=== PATIENT | female | born 1965 | race Caucasian/White ===

== ENCOUNTER 2023-01-24 08:51 | Emergency (ER) | payer MEDICARE, SELFPAY ==
[2023-01-24 08:52] VITALS: BP 174/84; PULSE 104; RESP 18; TEMP 36.2; O2SAT 98; BMI 21.2
[2023-01-24 09:36] VITALS: BMI 21.2
--- NOTE | 2023-01-24 09:42 | EKG12_ITS ---
Test Reason : BRENDEN Blood Pressure : / mmHG Vent. Rate : 089 BPM Atrial Rate : 089 BPM P-R Int : 140 ms QRS Dur : 100 ms QT Int : 352 ms P-R-T Axes : 029 015 160 degrees QTc Int : 428 ms Normal sinus rhythm Possible Inferior infarct , age undetermined ST & T wave abnormality, consider anterolateral ischemia Abnormal ECG Confirmed by PRIYA PERERA, MAYCOL ([id number]), editorial project manager GERRI MILAN ([id number]) on 01/28/2023 11:03:49 AM Referred By: Confirmed By:MAYCOL POWERS MD
--- NOTE | 2023-01-24 09:44 | CT_ITS ---
STUDY: CTA HEAD AND NECK WITH CONTRAST REASON FOR EXAM: Female, 57 years old. Neuro deficit, acute, stroke suspected RADIATION DOSAGE (If Supplied By Facility): CTDIvol = ( 30.57 ) mGy, DLP = ( 1502.47 ) mGycm TECHNIQUE: CT angiography was performed with a multi-detector CT scanner. Data acquisition was obtained from the skull base through the vertex following intravenous administration of IV 100mL Isovue-370. MIP images were reconstructed from the axial data set. Post-processing of the angiographic images was performed, with multiplanar reformation and 3D reconstruction. Individualized dose optimization techniques were used for this CT. COMPARISON: No relevant priors. FINDINGS: Normal bilateral petrous carotid arteries. There is calcified plaque formation of the right cavernous carotid artery, without a cross-sectional luminal stenosis. There is calcified plaque formation of the left cavernous carotid artery, without a cross-sectional luminal stenosis. Normal right A1 segments of the anterior cerebral artery. Normal left A1 segments of the anterior cerebral artery. Normal intact anterior communicating artery (ACOM). Normal bilateral A2 segments of the anterior cerebral arteries. Normal right M1 and M2 segments of the middle cerebral arteries, with a normal M1 bifurcation. Normal left M1 and M2 segments of the middle cerebral arteries, with a normal M1 bifurcation. Normal right posterior communicating artery (PCOM). Normal left posterior communicating artery (PCOM). Normal bilateral vertebral arteries. Normal basilar artery with a normal basilar bifurcation. The visualized bilateral superior cerebellar (SCA) arteries are normal. Normal bilateral P1, P2 and visualized P3 segments of the posterior cerebral arteries. There is no demonstrated aneurysm of the [place]. Decreased attenuation is seen in the left temporoparietal lobe suggestive of a acute ischemic change. There is a mild degree of the mass effect and edema. AORTIC ARCH: There is atherosclerotic calcific plaque formation of the aortic arch and great vessels arising from the aortic arch, without a hemodynamically significant stenosis. There is a normal origin of the brachiocephalic, left common carotid, and left subclavian arteries. RIGHT CAROTID ARTERIES: Normal right common carotid artery (CCA). Normal right common carotid bulb. Normal origin of the right internal carotid (ICA) artery without a hemodynamically significant stenosis. Normal visualized cervical portion of the right internal carotid artery. Normal origin of the right external carotid artery (ECA). LEFT CAROTID ARTERIES: Normal left common carotid artery (CCA). Normal left common carotid bulb. There is severe soft plaque formation of the origin of the left internal carotid artery with a near complete occlusion. Normal visualized cervical portion of the left internal carotid artery. Normal origin of the left external carotid artery (ECA). VERTEBRAL ARTERIES: Normal bilateral vertebral arteries. CT/STROKE CTA Head AND Neck W/Con IMPRESSION: Almost complete occlusion at the origin of the left internal carotid artery. Evidence of the ischemic change in the left temporal parietal lobes with evidence of edema. N.B. : The above Results were Read Back by Hipolito Rodriguez MD to William Potter and understanding confirmed on 01/24/2023 10:50:38 (ET). Electronically Signed: Hipolito Rodriguez MD at 10:52 EST ,
--- NOTE | 2023-01-24 09:50 | RAD_ITS ---
STUDY: X-RAY CHEST REASON FOR EXAM: Female, 57 years old. Neuro deficit, acute, stroke suspected TECHNIQUE: Single AP portable view of the chest. COMPARISON: None. FINDINGS: EKG electrodes are seen. The lungs are clear and expanded. There is no demonstrated pleural abnormality. Normal size heart. Normal mediastinum and gem. Normal visualized pulmonary arteries. Normal visualized aortic arch and descending thoracic aorta. There are diffuse degenerative changes of the visualized thoracic spine. Normal visualized ribs, clavicles, and shoulders. Effusion is seen in the lower cervical spine. Surgical clips are seen in the right upper quadrant. RAD/Chest 1 View IMPRESSION: No acute abnormality is seen. Electronically Signed: Hipolito Rodriguez MD at 10:16 EST ,
[2023-01-24 09:56] LABS: Absolute Lymphocyte Count 1.38 X10^3/uL (0.83-4.51); Absolute Neutrophil Count 5.9 X10^3/uL (2.0-7.7); Basophil# 0.04 X10^3/uL; Basophil% 0.5 % (0-1); Eosinophil# 0.19 X10^3/uL; Eosinophils% 2.3 % (0-5); Hematocrit 38.5 % (37-47); Hemoglobin 12.7 g/dL (12.0-15.0); Lymphocyte # 1.38 X10^3/ul (0.83-4.51); Lymphocyte % 16.9 % (19-41); Mean Corpuscular Hgb 28.9 pg (27.0-32.0); Mean Corpuscular Volume 87.5 fL (81-99); Mean Platelet Vol. 12.9 fl (6.2-12.0); Monocyte# 0.65 X10^3/uL; NRBC Flagged by Analyzer 0 % (0-5); Neutrophil # 5.87 X10^3/uL (2.7-7.7); Neutrophil % 71.9 % (47-70); Platelet Count 213 K/mm3 (150-450); RBC Distribution Width CV 14.6 % (11.6-14.6); RBC Distribution Width SD 46.4 fl (35.1-43.9); White Blood Count 8.2 K/mm3 (4.4-11.0)
[2023-01-24 10:08] LABS: International Normalized Ratio 1.4; Partial Thromboplast Time 31.2 Seconds (24.1-36.2); Prothrombin Time (Protime)PT. 16.9 SECONDS (11.7-14.9)
[2023-01-24 10:10] LABS: Anion Gap 7 (5-15); BUN 31 mg/dL (7-18); BUN/Creat Ratio 29.8 RATIO (10-20); Calcium,Total 10.2 mg/dL (8.5-10.1); Chloride 108 mmol/L (98-107); Creatinine, Serum 1.04 mg/dL (0.55-1.02); EST Glomerular Filtration Rate 58 mL/min (>60); Est Glom Filt Rate - Afr Amer 70 mL/min (>60); Estimated Creatinine Clearance 59.61 ml/min; Glucose 147 mg/dL (74-106); Potassium 2.9 mmol/L (3.5-5.1); Sodium Level 141 mmol/L (136-145); Troponin-I HS 7 pg/mL (3.0-54.0)
[2023-01-24 10:15] VITALS: BP 137/102; PULSE 88; RESP 16; O2SAT 99
[2023-01-24 11:28] VITALS: BP 116/80; PULSE 75; RESP 14; O2SAT 98
[2023-01-24] MEDS: Potassium Chloride 10mEq/100mL 10 MEQ/100 ML IV.SOLN. 100 MEQ IV BOLUS (11:29)
[2023-01-24 11:53] VITALS: BP 134/85; PULSE 71; RESP 14; O2SAT 99
--- NOTE | 2023-01-24 12:25 | EDS_ITS ---
HPI History of Present Illness Chief Complaint: Neuro S/Sx Informant: patient and spouse/S.O. Onset/Context/Timing Onset: Weeks (1) Context: Sudden Onset Timing: Continuous Quality and Location: Positive for Expressive Aphasia Onset: 1 week ago Worsened by: Nothing Relieved by: Nothing Associated Symptoms Associated Symptoms: Negative for Headache, Nausea, Vomiting or Chest Pain Narrative Narrative: Patient presents with stroke that occurred 1 week ago. Patient was in [place] and was diagnosed with a stroke at that time. Patient had testing done which showed stenosis of her left carotid artery. Patient did not want to have any procedures done in [place] and came back to [place] for further treatment. Patient has expressive aphasia and has difficulty with any speech because of the recent stroke. Patient can answer yes/no questions but otherwise cannot express any words. Patient appears to understand everything you were asking her. Patient has no weakness in her arms or legs. Patient denies any headache, nausea, vomiting, or chest pain. [facility] Medical History Atherosclerotic heart disease of [place] coronary artery without angina pectoris Encounter for screening for COVID-19 Essential hypertension History of left heart catheterization History of HI (myocardial infarction) Hyperlipidemia Home Medications aspirin 81 mg chewable tablet 81 mg PO DAILY@0800 05/13/14 [History Last Taken 05/12/14] escitalopram oxalate 10 mg tablet 10 mg PO DAILY 05/13/14 [History Last Taken 05/12/14] cyclobenzaprine 5 mg tablet 5 mg PO TID PRN 09/25/19 [History Last Taken Unknown] nitroglycerin 0.4 mg sublingual tablet 0.4 mg sublingual Q5-15M PRN 09/25/19 [History Last Taken Unknown] omeprazole 40 mg capsule,delayed release 40 mg PO DAILY 09/25/19 [History Last Taken Unknown] topiramate 25 mg tablet (Topamax) 25 mg PO BID 09/25/19 [History Last Taken Unknown] atorvastatin 80 mg tablet 80 mg PO QHS 12/28/19 [History Last Taken Unknown] carvedilol 25 mg tablet 50 mg PO BID hypertension and CAD #360 tabs 12/28/19 [Rx Last Taken Unknown] hydrochlorothiazide 12.5 mg tablet 12.5 mg PO DAILY #90 tabs 12/28/19 [Rx Last Taken Unknown] lisinopril 20 mg tablet 20 mg PO BID #180 tabs 12/28/19 [Rx Last Taken Unknown] alprazolam 0.25 mg tablet 0.25 mg PO QHS 01/24/23 [History Last Taken Unknown] amlodipine 5 mg tablet 5 mg PO BID 01/24/23 [History Last Taken Unknown] rivaroxaban 20 mg tablet (Xarelto) 20 mg PO DAILY 01/24/23 [History Last Taken Unknown] telmisartan 80 mg tablet (Micardis) 80 mg PO DAILY 01/24/23 [History Last Taken Unknown] Allergy/AdvReac Type Severity Reaction Status Date / Time celecoxib [From Celebrex] Allergy Other Verified 12/28/19 10:01 isosorbide mononitrate Allergy Other Verified 12/28/19 10:01 [From Imdur] meloxicam [From Mobic] Allergy Upset Verified 12/28/19 10:01 Stomach Family History Father Hypertension Cancer Mother Hypertension Uncle Diabetes Grandfather Cancer Grandmother Cancer Surgical History H/O: hysterectomy History of cholecystectomy History of excision of lamina of cervical vertebra for decompression of spinal cord Stented coronary artery Social History Smoking Status: Current every day smoker tobacco type: cigarettes alcohol intake: never substance use type: does not use ROS ROS ED Constitutional Constitutional ED: Denies chills or fever(s) Eyes Eyes: Denies blurry vision or change in vision ENT ENT ED: Denies rhinorrhea or sore throat Cardiovascular Cardiovascular: Denies chest pain or palpitations Respiratory/Chest Respiratory/Chest: Denies cough or dyspnea Gastrointestinal Gastrointestinal: Denies nausea or vomiting Genitourinary Genitourinary ED: Denies dysuria or hematuria Musculoskeletal Musculoskeletal: Denies back pain or neck pain Integumentary Denies abscess or rash Neurologic Neurologic: Denies headache(s) or weakness Allergic/Immunologic Allergic/Immunologic ED: Denies mouth swelling or urticaria EXAM Physical Exam Const Vital Signs: 01/24/23 08:52 01/24/23 10:15 01/24/23 11:28 Temperature 97.2 F L Temperature Source Temporal Pulse Rate 104 H 88 75 Respiratory Rate 18 16 14 Blood Pressure 174/84 H 137/102 H 116/80 Blood Pressure Mean 114 113 92 Pulse Ox 98 99 98 Oxygen Delivery Method Room Air Room Air Room Air 01/24/23 11:53 Temperature Temperature Source Pulse Rate 71 Respiratory Rate 14 Blood Pressure 134/85 H Blood Pressure Mean 101 Pulse Ox 99 Oxygen Delivery Method Room Air Positive well nourished and well developed General Appearance ED: well developed and NAD HEENT Reports moist mucous membranes Eyes PERRL and EOMs intact bilaterally Neck supple and no JVD Resp normal respiratory effort and clear to auscultation bilaterally Cardio Rate: regular rate Rhythm: regular rhythm GI soft to palpation and non-tender Neuro oriented x3, CN's II-XII intact bilaterally and no sensory deficits noted Neuro Narrative: Patient has an expressive aphasia. Patient answers yes and no but is otherwise unable to formulate any words. Joanne Coma Scale: document GCS findings Spontaneous Obeys Commands Oriented 15 Sensorium / Orientation: alert Speech: Negative for speech normal Motor Exam: strength 5/5 throughout Psych mental status grossly normal Skin no wounds MDM MDM MDM Narrative Medical decision making narrative: Differential diagnosis includes stroke, cardiac dysrhythmia, and carotid arterial disease. CT scan of the brain will be obtained to assess for acute stroke and intracranial bleeding. CTA of the head and neck will be obtained to assess for carotid arterial disease. EKG will be obtained to assess for cardiac dysrhythmia and cardiac ischemia. CBC will be obtained to assess for leukocytosis or anemia. Basic metabolic profile will be obtained to assess for electrolyte abnormality and renal function. High-sensitivity troponin will be obtained to assess for cardiac ischemia. PT with INR and PTT will be obtained to assess for coagulopathy. Chest x-ray will be obtained to assess for pneumonia and pneumothorax. Lab Data Attestation: I reviewed the patient's lab results. Lab results narrative: CBC was reviewed and was within normal limits. PT was INR was reviewed and shows a pro time of 16.9 and INR 1.4. PTT was reviewed and was normal. Basic metabolic profile was reviewed and showed a hypokalemia of 2.9. High- sensitivity troponin was reviewed and was normal. Labs: Laboratory Results - last 24 hr 01/24/23 01/24/23 01/24/23 09:43 09:43 09:43 WBC 8.2 RBC 4.40 Hgb 12.7 Hct 38.5 MCV 87.5 MCH 28.9 MCHC 33.0 RDW Std Deviation 46.4 H RDW Coeff of Fidel 14.6 Plt Count 213 MPV 12.9 H Immature Gran % (Auto) 0.400 Neut % (Auto) 71.9 H Lymph % (Auto) 16.9 L [place] % (Auto) 8.0 Eos % (Auto) 2.3 Baso % (Auto) 0.5 Absolute Neuts (auto) 5.9 Absolute Lymphs (auto) 1.38 Nucleated RBC % 0 PT 16.9 H INR 1.4 APTT 31.2 Sodium 141 Potassium 2.9 L Chloride 108 H Carbon Dioxide 26.0 Anion Gap 7 BUN 31 H Creatinine 1.04 H Estim Creat Clear Calc 59.61 Est GFR (MDRD) Af Amer 70 Est GFR (MDRD) Non-Af 58 L BUN/Creatinine Ratio 29.8 H Glucose 147 H Calcium 10.2 H Troponin I High Sens 7 Radiography Chest X-Ray - ED: 1 View, Read by ED Physician, Read by Radiologist and No Acute Disease Diagnostic Testing: Clinical Impression(s) from Imaging Studies Head/Neck CTA 01/24/23 09:44 IMPRESSION: Almost complete occlusion at the origin of the left internal carotid artery. Evidence of the ischemic change in the left temporal parietal lobes with evidence of edema. N.B. : The above Results were Read Back by Hipolito Rodriguez MD to William Potter and understanding confirmed on 01/24/2023 10:50:38 (ET). Electronically Signed: Hipolito Rodriguez MD at 10:52 EST , ADDENDUM: 01/24/23 1059 IMPRESSION: Almost complete occlusion at the origin of the left internal carotid artery. Evidence of the ischemic change in the left temporal parietal lobes with evidence of edema. N.B. : The above Results were Read Back by Hipolito Rodriguez MD to William Potter and understanding confirmed on 01/24/2023 10:50:38 (ET). Electronically Signed: Hipolito Rodriguez MD at 10:52 EST , Chest X-Ray 01/24/23 09:50 IMPRESSION: No acute abnormality is seen. Electronically Signed: Hipolito Rodriguez MD at 10:16 EST , CT scan of the brain and CTA of the head and neck was reviewed. There is almost complete occlusion of the left internal carotid artery. There is ischemic changes in the left temporal parietal lobes. This was interpreted by the radiologist and was also reviewed by myself. Portable 1 view chest x-ray was obtained. On my independent interpretation, lung zelaya are clear. There is normal cardiac silhouette. Bony thorax is normal. There is no acute process noted. Radiologist also interpreted the x- ray and agrees. EKG Initial EKG: Attestation: I personally reviewed and interpreted this EKG as follows: Interpretation: Sinus Rhythm (89) and Non-Specific ST Changes Comments: EKG was obtained. On my independent interpretation, it showed a normal sinus rhythm with a rate of 89. MD interval, QRS interval, and QTc intervals were all normal. Petal was normal. There are nonspecific ST-T wave changes. Prior EKG tracings: available for review Prior: Changed (The ST and T wave changes are new compared to previous EKG dated 12/28/2019.) Management Discussion w/another healthcare provider: Recreational Therapy Technician (Case was discussed with Dr. Jacobs from vascular surgery. He recommended obtaining a carotid duplex. He will follow-up with patient next week in his office. He recommended having the patient continue her aspirin and Xarelto.) Treatment and Re-Evaluation Narrative: Patient wants to go home. Patient was advised of her findings. Patient will be given follow-up instructions to follow-up with Dr. Jacobs early next week. Patient and spouse understand and are agreeable with the plan. All questions were answered. Stroke Documentation Questions Stroke Team Activated: No Reviewed Inclusion/Exclusion criteria: Yes IV Thrombolytic Administered: No No contraindications from thrombolytic administration: No Discharge Plan Triage Chief Complaint: Neuro S/Sx ED Provider: William Potter Dx/Rx/DC Orders Clinical Impression: Stroke, Expressive aphasia, Carotid artery stenosis Prescriptions: No Action nitroglycerin 0.4 mg tablet, sublingual 0.4 mg SUBLINGUAL Q5-15M PRN topiramate [Topamax] 25 mg tablet 25 mg PO BID cyclobenzaprine 5 mg tablet 5 mg PO TID PRN omeprazole 40 mg capsule,delayed release(DR/EC) 40 mg PO DAILY atorvastatin 80 mg tablet 80 mg PO QHS carvedilol 25 mg tablet 50 mg PO BID Qty: 360 3RF lisinopril 20 mg tablet 20 mg PO BID Qty: 180 3RF hydrochlorothiazide 12.5 mg tablet 12.5 mg PO DAILY Qty: 90 3RF aspirin 81 MG tablet,chewable 81 mg PO DAILY@0800 escitalopram oxalate 10 MG tablet 10 mg PO DAILY amlodipine 5 mg Tablet 5 mg PO BID alprazolam 0.25 mg Tablet 0.25 mg PO QHS telmisartan [Micardis] 80 mg Tablet 80 mg PO DAILY Xarelto 20 mg Tablet 20 mg PO DAILY Rx Instructions: must administer with evening meal Primary Care Provider: Arcenio Jones Referrals: William Jacobs MD [Med Staff - Active Staff] - 3-5 Days Arcenio Jones MD [Primary Care Provider] - 5-7 Days Activity Restrictions/Additional Instructions: Continue your daily aspirin and Xarelto as previously prescribed. Disposition Disposition: Home, Self Care
--- NOTE | 2023-01-24 12:45 | CDU_ITS ---
Reason For Study: carotid stenosis Rt. Velocities/BP Lt. Velocities/BP Prox CCA 96.0/33.3 cm/sec. Prox CCA 43.0/11.6 cm/sec. Mid CCA 76.2/28.9 cm/sec. Mid CCA 52.6/12.5 cm/sec. Dist CCA 83.9/27.8 cm/sec. Dist CCA 44.7/11.6 cm/sec. Prox ICA 193.8/79.7 cm/sec. Prox ICA 588.4/289.5 cm/sec. Mid ICA 171.9/77.5 cm/sec. Mid ICA 50.7/23.7 cm/sec. Dist ICA 145.5/57.7 cm/sec. Dist ICA 39.7/21.2 cm/sec. Rt. ICA/CCA = 2.5. Lt. ICA/CCA = 11.2. Prox ECA 75.1/11.3 cm/sec. Prox ECA 70.0/8.1 cm/sec. Rt. Vert. 73.6/37.1 cm/sec. Lt. Vert. 38.8/10.2 cm/sec. Right Extracranial There is homogeneous, smooth atherosclerotic plaque noted in the right common carotid artery. There is heterogeneous, irregular atherosclerotic plaque noted in the right internal carotid artery. There is homogeneous, smooth atherosclerotic plaque noted in the right external carotid artery. Antegrade flow is noted in the right vertebral artery. Left Extracranial There is homogeneous, smooth atherosclerotic plaque noted in the left common carotid artery. There is heterogeneous, irregular atherosclerotic plaque noted in the left internal carotid artery. There is homogeneous, smooth atherosclerotic plaque noted in the left external carotid artery. Antegrade flow is noted in the left vertebral artery. Prelim to Dr. Potter. Procedure Carotid Duplex 37880. This is a Carotid Duplex examination using B-mode, color flow and specral Doppler. The exam was diagnostic. Exam performed portable in ED. VL/Carotid Duplex Ultrasound Interpretation Summary Moderate (50-69%) stenosis right extracranial internal carotid. Severe (>70%) stenosis left extracranial internal carotid. Patent and antegrade vertebrals bilaterally. Ordering Physician: William Potter Performed By: Anthony Stewart RVT
[2023-01-24 13:38] VITALS: BP 133/82
== END 2023-01-24 13:38 | disposition home or self-care (01) ==
PROVIDERS: Emergency Provider Emergency Medicine; PCP Family Medicine; Visit Provider Emergency Medicine
DX: I63.9 Cerebral infarction, unspecified (principal); I10 Essential (primary) hypertension; R47.9 Unspecified speech disturbances; I25.10 Atherosclerotic heart disease of native coronary artery without angina pectoris; E78.5 Hyperlipidemia, unspecified; F17.210 Nicotine dependence, cigarettes, uncomplicated; R47.01 Aphasia; I65.22 Occlusion and stenosis of left carotid artery
CPT/HCPCS: 70496; 70498; 71045; 80048; 84484; 85025; 85610; 85730; 93005; 93880; 99284; J7040; Q9967; A4216

== ENCOUNTER → 2023-01-31 | Outpatient (CLI) | payer MEDICARE, SELFPAY ==
--- NOTE | 2023-01-31 10:58 | STRESSREP ---
Stress Test Report Date: 01/31/2023 Procedure: Pharmacologic stress nuclear imaging study Indications: History of coronary artery disease, preoperative cardiac evaluation Consent: Per the patient Procedure: The patient underwent pharmacologic (Regadenoson 0.4mg ) evaluation with a peak heart rate of 86 beats per minute (52%predicted maximal heart rate) and a peak blood pressure of 118/70 mmHg. The baseline ECG demonstrated normal sinus rhythm with nonspecific ST-T wave changes. The peak pharmacologic ECG demonstrated no diagnostic ischemic changes. There were no cardiac dysrhythmias pretest, during pharmacologic infusion, or recovery. There was no complaint of chest discomfort during pharmacologic infusion or recovery. The patient was injected with 11.4 millicuries of technetium 99m Cardiolite and subsequently rest SPECT Cardiolite nuclear imaging was obtained in the horizontal long, vertical long, and short axis views. The patient underwent pharmacologic (Regadenoson) evaluation. The patient was injected with 33.0 millicuries of technetium 99m Cardiolite and subsequently stress SPECT Cardiolite nuclear imaging was obtained in the horizontal long, vertical long, and short axis views. A gated Cardiolite study at peak stress was obtained. The examination was stopped secondary to completion of protocol. Rest and stress SPECT Cardiolite nuclear imaging status post realignment, normalization, and attenuation correction demonstrate moderate to large fixed inferior basal defect consistent with prior MD. No reversible defects noted. The reported LVEF is 39%. Impression: 1. Pharmacologic (Regadenoson) evaluation 2. Peak pharmacologic ECG with no diagnostic changes secondary to baseline abnormality. 3. There were no cardiac dysrhythmias pretest, during pharmacologic infusion, or recovery. 5. Moderate to large fixed inferior defect consistent with patient's history of prior inferior myocardial infarction. No reversible defects noted. 6. The gated Cardiolite study reports an LVEF of 39%. Inferior hypokinesis noted This note was generated with [employer] software. It may contain incorrect words, spelling, and punctuation that were not noted in checking the note before signing.
== END | disposition home or self-care (01) ==
PROVIDERS: PCP Family Medicine; Visit Provider Surgery Trauma Surgery
DX: I25.10 Atherosclerotic heart disease of native coronary artery without angina pectoris (principal); I25.2 Old myocardial infarction
CPT/HCPCS: 78452; 93017; A9500; A4216; J2785

== ENCOUNTER 2023-02-06 10:18 | Inpatient (IN) | payer MEDICARE, SELFPAY ==
[2023-02-06] VITALS (21 sets, daily range): BP systolic 109–159; BP diastolic 66–80; PULSE 76–93; RESP 13–18; TEMP 36.4–37.2; O2SAT 93–100; BMI 22.6; BMI 21.4
--- NOTE | 2023-02-06 10:41 | CT_ITS ---
STUDY: CT BRAIN WITHOUT CONTRAST REASON FOR EXAM: Female, 57 years old. Headache after trauma RADIATION DOSAGE (If Supplied By Facility): CTDIvol = ( 47.06 ) mGy, DLP = ( 872.68 ) mGycm TECHNIQUE: Transaxial CT imaging of the brain was performed without administration of intravenous contrast material. Individualized dose optimization techniques were used for this CT. COMPARISON: 01/24/2023 FINDINGS: Normal soft tissue structures. Normal calvarium. Persistent hypoattenuation in the left temporal and parietal lobes suggesting recent infarct. Normal size ventricles and extra-axial spaces for the patient''s age. Normal white matter tracts of the right cerebral hemisphere. Normal basal ganglia and thalami. Normal brainstem. Normal cerebellum. There is no intracranial hemorrhage. There are no findings of an acute ischemic infarction. Normal visualized paranasal sinuses. CT/Brain/Head without Contrast IMPRESSION: Persistent hypoattenuation in the left temporoparietal lobes consistent with recent infarct. No acute hemorrhage, no midline shift. No skull fracture scalp hematoma or significant interval change since the previous study Electronically Signed: Pradeep Song MD at 11:26 EDT ,
--- NOTE | 2023-02-06 10:41 | RAD_ITS ---
STUDY: X-RAY - LEFT HUMERUS REASON FOR EXAM: Female, 57 years old. fall PT HAD A STROKE A MONTH AGO ND HAS DIFFICULTY SPEAKING. FELL TODAY AND C/O LEFT ARM PAIN AND WEAKNESS TECHNIQUE: 2 view(s) of the humerus. COMPARISON: None. FINDINGS: Normal visualized humerus. There is no demonstrated fracture or osseous destructive process. Normal visualized glenohumeral articulation. There is no demonstrated soft tissue abnormality. RAD/Humerus min 2 Views IMPRESSION: Normal x-ray examination of the humerus. Electronically Signed: Kingston Gold MD at 11:50 EDT ,
--- NOTE | 2023-02-06 10:41 | RAD_ITS ---
EXAM: XR RIGHT HIP WITH PELVIS WHEN PERFORMED, 2 OR 3 VIEWS CLINICAL INDICATION: Trauma TECHNIQUE: Two or three views of the right hip with pelvis when performed. This report was created using [employer] report generation technology. COMPARISON: None. FINDINGS: BONES/JOINTS: No acute abnormality. SOFT TISSUES: Normal. No soft tissue swelling or gas. RAD/HIP, UNI W/ Pelvis 2-3 Views IMPRESSION: No evidence of displaced pelvic or hip fracture. Electronically Signed: Sukhwinder Hyatt MD at 11:49 EDT ,
--- NOTE | 2023-02-06 10:42 | EKG12_ITS ---
Test Reason : GENERAL Blood Pressure : / mmHG Vent. Rate : 089 BPM Atrial Rate : 089 BPM P-R Int : 132 ms QRS Dur : 088 ms QT Int : 356 ms P-R-T Axes : 049 025 154 degrees QTc Int : 433 ms Normal sinus rhythm Nonspecific ST-T changes Abnormal ECG Confirmed by MARBELLA PERERA, LAURIE ([id number]), film editor supervisor GERRI MILAN ([id number]) on 02/08/2023 6:57:20 AM Referred By: Confirmed By:RUSTAM TYSON MD
--- NOTE | 2023-02-06 10:44 | EDS_ITS ---
HPI History of Present Illness Chief Complaint: Weakness Detail of Chief Complaint: Fall, weakness Informant: patient and EMS Narrative Narrative: Patient presents via EMS after a fall at home. She had a stroke approximate month ago while in [place]. She has difficulty with speech since that time. She is able to answer yes and no questions. Patient reportedly fell today and is complaining of some left upper arm pain. She states that she is [id number]. She denies striking her head or loss of consciousness. It is noted that the patient is on Xarelto. Patient has a significant carotid stenosis and is undergoing preop clearance for surgical repair of this. [facility] Medical History Atherosclerotic heart disease of [place] coronary artery without angina pectoris Encounter for screening for COVID-19 Essential hypertension Expressive aphasia H/O ischemic left MCA stroke History of ID (myocardial infarction) Hyperlipidemia Home Medications aspirin 81 mg chewable tablet 81 mg PO DAILY@0800 05/13/14 [History Last Taken 05/12/14] nitroglycerin 0.4 mg sublingual tablet 0.4 mg sublingual Q5-15M PRN 09/25/19 [History Last Taken Unknown] omeprazole 40 mg capsule,delayed release 40 mg PO DAILY 09/25/19 [History Last Taken Unknown] alprazolam 0.25 mg tablet 0.25 mg PO QHS 01/24/23 [History Last Taken Unknown] amlodipine 5 mg tablet 5 mg PO BID 01/24/23 [History Last Taken Unknown] rivaroxaban 20 mg tablet (Xarelto) 20 mg PO DAILY 01/24/23 [History Last Taken Unknown] spironolactone 25 mg tablet (Aldactone) 25 mg PO DAILY 01/28/23 [History Last Taken Unknown] atorvastatin 80 mg tablet 80 mg PO QHS #90 tabs 02/04/23 [Rx Last Taken Unknown] telmisartan 80 mg tablet (Micardis) 80 mg PO DAILY #30 tabs 02/04/23 [Rx Last Taken Unknown] Allergy/AdvReac Type Severity Reaction Status Date / Time celecoxib [From Celebrex] Allergy Severe Other Verified 01/28/23 10:24 isosorbide mononitrate Allergy Severe Other Verified 01/28/23 10:24 [From Imdur] meloxicam [From Mobic] Allergy Severe Nausea/Vom/ Verified 01/28/23 10:24 Diarrhea Family History Father Hypertension Cancer Mother Hypertension Uncle Diabetes Grandfather Cancer Grandmother Cancer Surgical History H/O: hysterectomy History of cholecystectomy History of coronary artery stent placement (02/17/11) History of excision of lamina of cervical vertebra for decompression of spinal cord History of left heart catheterization Social History Smoking Status: Current every day smoker tobacco type: cigarettes alcohol intake: never substance use type: does not use ROS ROS ED Review of Systems ROS Unobtainable: other Details: Limited secondary to the patient's expressive aphasia. Constitutional Constitutional ED: Denies chills or fever(s) Cardiovascular Cardiovascular: Denies chest pain Respiratory/Chest Respiratory/Chest: Denies dyspnea Gastrointestinal Gastrointestinal: Denies abdominal pain, nausea or vomiting Musculoskeletal Musculoskeletal: Reports extremity pain Integumentary Denies Abrasions or rash Neurologic Neurologic: Reports weakness; Denies headache(s) Allergic/Immunologic Allergic/Immunologic ED: Denies lip swelling or urticaria EXAM Physical Exam Const Vital Signs: 02/06/23 10:19 02/06/23 10:44 02/06/23 11:55 Temperature 98.9 F Temperature Source Temporal Pulse Rate 93 86 Respiratory Rate 13 16 Respiratory Effort Normal Non-Labored Blood Pressure 109/73 132/77 H Blood Pressure Mean 85 95 Pulse Ox 97 99 Oxygen Delivery Method Room Air Room Air 02/06/23 12:25 Temperature Temperature Source Pulse Rate 80 Respiratory Rate 18 Respiratory Effort Blood Pressure 128/70 H Blood Pressure Mean 89 Pulse Ox 99 Oxygen Delivery Method Room Air Positive well nourished and well developed General Appearance ED: well developed HEENT Reports normocephalic, head/scalp atraumatic and dry mucous membranes Mouth ED: Yes dry mucous membranes Mouth: dry mucous membranes Eyes PERRL and EOMs intact bilaterally Neck supple Chest Wall inspection of chest normal and palpation of chest normal Resp normal respiratory effort and clear to auscultation bilaterally Cardio regular rate and regular rhythm GI normal to inspection, nondistended, normoactive bowel sounds Palpation: soft Extremity Extremity Narrative: Minimal tenderness location left humerus. No deformity. Good range of motion. Strong distal pulses. Good range of motion left lower extremity. Limited range of motion right lower extremity. No reproducible tenderness over the hip, although patient indicates that she has pain at the hip when she tries to lift her leg. Patient does have right upper extremity weakness noted on exam. She states this is from her recent stroke. Neuro Sensorium / Orientation: alert Psych mental status grossly normal Skin no rashes or lesions noted MDM MDM MDM Narrative Medical decision making narrative: Patient sent for head CT given her fall and being on Xarelto. X-rays of her left humerus and right hip are obtained secondary to pain after fall. Labwork obtained to evaluate for leukocytosis, anemia, and electrolyte derangement. EKG obtained to evaluate for cardiac arrhythmia/ischemia. Urinalysis obtained to evaluate for infection. History & Record Review Discussion w/independent historian: EMS personnel, Patient and Family Lab Data Attestation: I reviewed the patient's lab results. Labs: Laboratory Results - last 24 hr 02/06/23 02/06/23 02/06/23 11:01 11:01 11:30 WBC 7.8 RBC 1.76 L Hgb 5.0 L* Hct 15.9 L MCV 90.3 MCH 28.4 MCHC 31.4 L RDW Std Deviation 49.3 H RDW Coeff of Fidel 15.2 H Plt Count 348 MPV 12.2 H Immature Gran % (Auto) 0.100 Neut % (Auto) 72.1 H Lymph % (Auto) 18.4 L [place] % (Auto) 8.2 Eos % (Auto) 0.6 Baso % (Auto) 0.6 Absolute Neuts (auto) 5.6 Absolute Lymphs (auto) 1.44 Nucleated RBC % 0 Polychromasia 1+ Hypochromasia 1+ Anisocytosis 1+ Sodium 142 Potassium 3.2 L Chloride 108 H Carbon Dioxide 27.0 Anion Gap 7 BUN 22 H Creatinine 0.72 Estim Creat Clear Calc 80.70 Est GFR (MDRD) Af Amer 108 Est GFR (MDRD) Non-Af 89 BUN/Creatinine Ratio 30.7 H Glucose 146 H Calcium 9.0 Urine Color Urine Clarity Urine pH Ur Specific [place] Urine Protein Urine Glucose (UA) Urine Ketones Urine Occult Blood Urine Nitrite Urine Bilirubin Urine Urobilinogen Ur Leukocyte Esterase Urine RBC Urine WBC Ur Squamous Epith Cells Urine Bacteria Urine Mucus Blood Type A POSITIVE Antibody Screen NEGATIVE Crossmatch See Detail 02/06/23 12:00 WBC RBC Hgb Hct MCV MCH MCHC RDW Std Deviation RDW Coeff of Fidel Plt Count MPV Immature Gran % (Auto) Neut % (Auto) Lymph % (Auto) [place] % (Auto) Eos % (Auto) Baso % (Auto) Absolute Neuts (auto) Absolute Lymphs (auto) Nucleated RBC % Polychromasia Hypochromasia Anisocytosis Sodium Potassium Chloride Carbon Dioxide Anion Gap BUN Creatinine Estim Creat Clear Calc Est GFR (MDRD) Af Amer Est GFR (MDRD) Non-Af BUN/Creatinine Ratio Glucose Calcium Urine Color Yellow Urine Clarity Clear Urine pH 5.0 Ur Specific [place] 1.020 Urine Protein 15 H Urine Glucose (UA) Normal Urine Ketones Negative Urine Occult Blood Negative Urine Nitrite Negative Urine Bilirubin Negative Urine Urobilinogen 4 H Ur Leukocyte Esterase Negative Urine RBC 0 SEEN Urine WBC 0-5 SEEN Ur Squamous Epith Cells 0 SEEN Urine Bacteria 1+ Urine Mucus 2+ Blood Type Antibody Screen Crossmatch Radiography Chest X-Ray - ED: 1 View, Read by ED Physician, Normal, Heart, Lungs and Mediastinum Diagnostic Testing: Clinical Impression(s) from Imaging Studies Brain CT 02/06/23 10:41 IMPRESSION: Persistent hypoattenuation in the left temporoparietal lobes consistent with recent infarct. No acute hemorrhage, no midline shift. No skull fracture scalp hematoma or significant interval change since the previous study Electronically Signed: Pradeep Song MD at 11:26 EDT , Hip/Pelvis X-Ray 02/06/23 10:41 IMPRESSION: No evidence of displaced pelvic or hip fracture. Electronically Signed: Sukhwinder Hyatt MD at 11:49 EDT , Humerus X-Ray 02/06/23 10:41 IMPRESSION: Normal x-ray examination of the humerus. Electronically Signed: Kingston Gold MD at 11:50 EDT , Chest X-Ray 02/06/23 11:15 IMPRESSION: No acute cardiopulmonary abnormality. No interval change. Electronically Signed: Sukhwinder Hyatt MD at 11:46 EDT , EKG Initial EKG: Attestation: I personally reviewed and interpreted this EKG as follows: Interpretation: Sinus Rhythm (Sinus 89 with mild anterior-lateral ST depression.) Management Discussion w/another healthcare provider: Inhalation Therapy Teacher (Dr. Chapo DUKES.) Treatment and Re-Evaluation :: CT scan of the head reveals chronic changes with no acute findings noted. Chest x-ray per my interpretation reveals no acute findings. Radiology interpretation is reviewed and agrees. X-rays of the pelvis/right hip as well as left humerus per my interpretation reveal no evidence of fracture. Radiology interpretation is reviewed and agrees. CBC reveals hemoglobin of 5.0 and hematocrit of 15.9. Her hemoglobin was 12.7 earlier this month. Chemistry studies are significant for potassium of 3.2. Renal function is normal. Urinalysis reveals no sign of acute infection. Stool guaiac is performed and is positive. Urinalysis reveals no evidence of acute infection. Patient has been ordered 3 units of blood. I have spoken with GI and will speak with hospitalist regarding admission for further treatment. Her potassium was replaced IV as well. Discharge Plan Triage Chief Complaint: Weakness ED Provider: Rosemary Bartholomew Dx/Rx/DC Orders Clinical Impression: GI bleed, Anemia, Right sided weakness, Fall Prescriptions: No Action nitroglycerin 0.4 mg tablet, sublingual 0.4 mg SUBLINGUAL Q5-15M PRN omeprazole 40 mg capsule,delayed release(DR/EC) 40 mg PO DAILY spironolactone [Aldactone] 25 mg tablet 25 mg PO DAILY aspirin 81 MG tablet,chewable 81 mg PO DAILY@0800 amlodipine 5 mg Tablet 5 mg PO BID alprazolam 0.25 mg Tablet 0.25 mg PO QHS Xarelto 20 mg Tablet 20 mg PO DAILY Rx Instructions: must administer with evening meal telmisartan [Micardis] 80 mg tablet 80 mg PO DAILY Qty: 30 0RF atorvastatin 80 mg tablet 80 mg PO QHS Qty: 90 3RF Primary Care Provider: Arcenio Jones Referrals: Arcenio Jones MD [Primary Care Provider] - Disposition Disposition: Acute Care Hospital [facility]
[2023-02-06] MEDS: 0.9% Normal Saline 1,000 ML 150 ML IV (10:59)
[2023-02-06 11:10] LABS: Absolute Lymphocyte Count 1.44 X10^3/uL (0.83-4.51); Absolute Neutrophil Count 5.6 X10^3/uL (2.0-7.7); Basophil# 0.05 X10^3/uL; Basophil% 0.6 % (0-1); Eosinophil# 0.05 X10^3/uL; Eosinophils% 0.6 % (0-5); Hematocrit 15.9 % (37-47); Lymphocyte # 1.44 X10^3/ul (0.83-4.51); Lymphocyte % 18.4 % (19-41); Mean Corp Hgb Conc 31.4 g/dL (32-36); Mean Corpuscular Hgb 28.4 pg (27.0-32.0); Mean Corpuscular Volume 90.3 fL (81-99); Mean Platelet Vol. 12.2 fl (6.2-12.0); Monocyte# 0.64 X10^3/uL; Monocyte% 8.2 % (0-10); NRBC Flagged by Analyzer 0 % (0-5); Neutrophil # 5.62 X10^3/uL (2.7-7.7); Neutrophil % 72.1 % (47-70); POSITIVE COUNT YES; Platelet Count 348 K/mm3 (150-450); RBC Distribution Width CV 15.2 % (11.6-14.6); RBC Distribution Width SD 49.3 fl (35.1-43.9); Red Blood Count 1.76 M/mm3 (4.2-5.4); White Blood Count 7.8 K/mm3 (4.4-11.0)
--- NOTE | 2023-02-06 11:15 | RAD_ITS ---
EXAM: XR CHEST, 1 VIEW CLINICAL INDICATION: weakness TECHNIQUE: Frontal view of the chest. This report was created using [employer] report generation technology. COMPARISON: XR Chest dated 01/24/2023 FINDINGS: LUNGS AND PLEURAL SPACES: Normal. No consolidation or edema. No pneumothorax. No effusion. HEART: Normal heart size. MEDIASTINUM: No mediastinal or hilar mass. BONES/JOINTS: No acute abnormality. SOFT TISSUES: Normal. RAD/Chest 1 View (Portable) IMPRESSION: No acute cardiopulmonary abnormality. No interval change. Electronically Signed: Sukhwinder Hyatt MD at 11:46 EDT ,
[2023-02-06 11:17] LABS: Anion Gap 7 (5-15); BUN 22 mg/dL (7-18); BUN/Creat Ratio 30.7 RATIO (10-20); Chloride 108 mmol/L (98-107); Creatinine, Serum 0.72 mg/dL (0.55-1.02); Differential Indicated SCAN CRITERIA MET; EST Glomerular Filtration Rate 89 mL/min (>60); Est Glom Filt Rate - Afr Amer 108 mL/min (>60); Glucose 146 mg/dL (74-106); Potassium 3.2 mmol/L (3.5-5.1); Sodium Level 142 mmol/L (136-145)
[2023-02-06 11:46] LABS: Polychromasia 1+
[2023-02-06 11:47] LABS: Anisocytosis 1+; Hypochromasia 1+
[2023-02-06 12:02] LABS: Red Blood Cells-Urine 0 SEEN /hpf (0-5); Squamous Epithelial Cells - UA 0 SEEN /hpf (5-10)
[2023-02-06 12:22] LABS: Color, Urine Yellow (Yellow); Glucose, Dipstick Normal (Normal); Ketone-Dipstick Negative (Negative); Leukocyte Esterase-Dipstick Negative /ul (Negative); Nitrite-Dipstick Negative (Negative); Occult Blood-Urine Negative /ul (Negative); Protein-Dipstick 15 mg/dl (Negative); Urine Bilirubin Dipstick Negative (Negative); Urine Clarity Clear (Clear); Urine Urobilinogen 4 mg/dl (Normal)
[2023-02-06] MEDS: Potassium Chloride 10mEq/100mL 10 MEQ/100 ML IV.SOLN. 100 MEQ IV BOLUS ×4 (12:41→17:53)
[2023-02-06 12:49] LABS: White Blood Cells 0-5 SEEN /hpf (0-5)
[2023-02-06 12:50] LABS: Bacteria 1+ /hpf (None Seen); Mucous, Urine 2+ /hpf (<or=2+)
--- NOTE | 2023-02-06 12:55 | ED.RN ---
involuntary movements to right arm and right leg noted at times
--- NOTE | 2023-02-06 13:53 | NURSING ---
[address] [facility] GI BLEED, ANEMIA, APHESIA, CAROID STENOSIS
--- NOTE | 2023-02-06 14:21 | PCM.HP.STD ---
HPI - General General Date of Admission: 02/06/23 Date of Service: 02/06/23 Chief Complaint: Weakness, fall HPI Narrative Norma Waldron is a 57-year-old female with a history of coronary artery disease, critical internal carotid artery stenosis, and stroke 1 month ago in [place] with expressive aphasia for which she was not able to get treatment due to difficulty with payment presented to [facility] 02/06 with generalized weakness and falls. She was seen here 2 weeks ago for her stroke care and has been following with Dr. Jacobs with plans for carotid surgery later this month and undergoing cardiac clearance. In the ED she is found to have a hemoglobin of 5 with a hemoglobin of 12.7 2 weeks ago, potassium 3.2, creatinine 0.72 and stool guaiac positive. She had a brain CT with no new acute changes or bleeds and had a chest x-ray, humerus x-ray, hip and pelvis x-ray due to her falls with no acute findings. ED physician discussed with GI and they are aware. Patient to be transfused 3 units of blood. Hospitalist consulted for admission. Patient seen at bedside, she has expressive aphasia and has difficulty answering questions but was able to endorse that her right-sided weakness is new, denies chest pain or shortness of breath. She was unable to endorse any other pertinent ROS. [facility] Medical History Atherosclerotic heart disease of [place] coronary artery without angina pectoris Encounter for screening for COVID-19 Essential hypertension Expressive aphasia H/O ischemic left MCA stroke History of ME (myocardial infarction) Hyperlipidemia Home Medications aspirin 81 mg chewable tablet 81 mg PO DAILY@0800 HEALTH MAINTENANCE 05/13/14 [History Last Taken 02/06/23] nitroglycerin 0.4 mg sublingual tablet 0.4 mg sublingual Q5-15M PRN Chest Pain 09/25/19 [History Last Taken Unknown] amlodipine 5 mg tablet 5 mg PO BID BP 01/24/23 [History Last Taken 02/06/23] rivaroxaban 20 mg tablet (Xarelto) 20 mg PO DAILY BLOOD THINNER 01/24/23 [History Last Taken Unknown] atorvastatin 80 mg tablet 80 mg PO QHS CHOLESTEROL 02/06/23 [History Last Taken Unknown] telmisartan 80 mg tablet (Micardis) 80 mg PO DAILY HEART 02/06/23 [History Last Taken Unknown] Allergy/AdvReac Type Severity Reaction Status Date / Time celecoxib [From Celebrex] Allergy Severe Other Verified 01/28/23 10:24 isosorbide mononitrate Allergy Severe Other Verified 01/28/23 10:24 [From Imdur] meloxicam [From Mobic] Allergy Severe Nausea/Vom/ Verified 01/28/23 10:24 Diarrhea Family History Father Hypertension Cancer Mother Hypertension Uncle Diabetes Grandfather Cancer Grandmother Cancer Surgical History H/O: hysterectomy History of cholecystectomy History of coronary artery stent placement (02/17/11) History of excision of lamina of cervical vertebra for decompression of spinal cord History of left heart catheterization Social History Smoking Status: Current every day smoker tobacco type: cigarettes alcohol intake: never substance use type: does not use ROS ROS Narrative she has expressive aphasia and has difficulty answering questions but was able to endorse that her right-sided weakness is new, denies chest pain or shortness of breath. She was unable to endorse any other pertinent ROS. Vital Signs Vital Signs Vital Signs: 02/06/23 10:19 02/06/23 10:44 02/06/23 11:55 Temperature 98.9 F Temperature Source Temporal Pulse Rate 93 86 Respiratory Rate 13 16 Respiratory Effort Normal Non-Labored Blood Pressure 109/73 132/77 H Blood Pressure Mean 85 95 Blood Pressure Source Blood Pressure Position Blood Pressure Location Pulse Ox 97 99 Oxygen Delivery Method Room Air Room Air 02/06/23 12:25 02/06/23 13:24 02/06/23 13:32 Temperature 97.7 F L 97.7 F L Temperature Source Temporal Temporal Pulse Rate 80 80 81 Respiratory Rate 18 14 16 Respiratory Effort Blood Pressure 128/70 H 121/66 H 123/68 H Blood Pressure Mean 89 84 86 Blood Pressure Source Monitor Blood Pressure Position Blood Pressure Location Pulse Ox 99 99 98 Oxygen Delivery Method Room Air Room Air Room Air 02/06/23 13:39 Temperature 97.6 F L Temperature Source Temporal Pulse Rate 83 Respiratory Rate 14 Respiratory Effort Blood Pressure 123/68 H Blood Pressure Mean 86 Blood Pressure Source Monitor Blood Pressure Position Supine Blood Pressure Location Right Arm Pulse Ox 99 Oxygen Delivery Method Room Air Weight Weight: 63.7 kg Body Mass Index (BMI) 22.6 Physical Exam Narrative General: Alert, patient unable to answer orientation questions, no acute distress HEENT: Atraumatic, normocephalic Eyes: Anicteric, normal conjunctiva, extraocular movements grossly intact but had difficulty following command, pupils equal Neck: Supple Respiratory: Clear to auscultation bilaterally, normal respiratory effort Cardiovascular: Regular rate and rhythm GI: Soft, nontender, nondistended Extremities: No edema Musculoskeletal: Moving left upper and lower extremities without difficulty, right upper extremity slight decrease in weakness, right lower extremity profoundly weak Neuro: Face moving symmetrically, does have expressive aphasia noted, had difficulty following other neuro commands Skin: No rashes appreciated Psych: Cooperative Results Lab / Micro Data Result Diagrams: 02/06/23 11:01 02/06/23 11:01 Labs: Laboratory Results - last 24 hr 02/06/23 11:01: WBC 7.8, RBC 1.76 L, Hgb 5.0 L*, Hct 15.9 L, MCV 90.3, MCH 28.4, MCHC 31.4 L, RDW Std Deviation 49.3 H, RDW Coeff of Fidel 15.2 H, Plt Count 348, MPV 12.2 H, Immature Gran % (Auto) 0.100, Neut % (Auto) 72.1 H, Lymph % (Auto) 18.4 L, [place] % (Auto) 8.2, Eos % (Auto) 0.6, Baso % (Auto) 0.6, Absolute Neuts (auto) 5.6, Absolute Lymphs (auto) 1.44, Nucleated RBC % 0, Polychromasia 1+, Hypochromasia 1+, Anisocytosis 1+ 02/06/23 11:01: Sodium 142, Potassium 3.2 L, Chloride 108 H, Carbon Dioxide 27.0, Anion Gap 7, BUN 22 H, Creatinine 0.72, Estim Creat Clear Calc 80.70, Est GFR (MDRD) Af Amer 108, Est GFR (MDRD) Non-Af 89, BUN/Creatinine Ratio 30.7 H, Glucose 146 H, Calcium 9.0 02/06/23 11:30: Blood Type A POSITIVE, Antibody Screen NEGATIVE, Crossmatch See Detail 02/06/23 12:00: Urine Color Yellow, Urine Clarity Clear, Urine pH 5.0, Ur Specific [place] 1.020, Urine Protein 15 H, Urine Glucose (UA) Normal, Urine Ketones Negative, Urine Occult Blood Negative, Urine Nitrite Negative, Urine Bilirubin Negative, Urine Urobilinogen 4 H, Ur Leukocyte Esterase Negative, Urine RBC 0 SEEN, Urine WBC 0-5 SEEN, Ur Squamous Epith Cells 0 SEEN, Urine Bacteria 1+, Urine Mucus 2+ Micro: Microbiology 02/06/23 12:00 Stool Stool Occult Blood (ELSY) - Final Occult Blood Positive Radiology Impression Brain CT 02/06/23 10:41 IMPRESSION: Persistent hypoattenuation in the left temporoparietal lobes consistent with recent infarct. No acute hemorrhage, no midline shift. No skull fracture scalp hematoma or significant interval change since the previous study Electronically Signed: Pradeep Song MD at 11:26 EDT , Hip/Pelvis X-Ray 02/06/23 10:41 IMPRESSION: No evidence of displaced pelvic or hip fracture. Electronically Signed: Sukhwinder Hyatt MD at 11:49 EDT , Humerus X-Ray 02/06/23 10:41 IMPRESSION: Normal x-ray examination of the humerus. Electronically Signed: Kingston Gold MD at 11:50 EDT , Chest X-Ray 02/06/23 11:15 IMPRESSION: No acute cardiopulmonary abnormality. No interval change. Electronically Signed: Sukhwinder Hyatt MD at 11:46 EDT , Assessment & Plan Assessment/Plan (1) GI bleed: (2) Anemia: PLAN: Plan #Acute blood loss anemia 2/2 GI bleed -Her diffuse weakness suspected to be due to acute hemoglobin drop -Hemoglobin 5 with a baseline of 12 -Unclear upper versus lower, will start on PPI drip -She is on aspirin and Xarelto for recent CVA with critical carotid internal artery stenosis, Spoke with Dr. Jacobs, hold xeralto and cont aspirin -GI consult -Type and cross and will have 3 units packed red blood cells transfused #New right-sided weakness with history of CVA 1 month ago with critical internal left carotid stenosis -Concern for new CVA -Admit to tele -CT head w/ chronic changes in ED, will obtain CTA and MRI -NIH q4hr -Cont statin -Echo w/ bubble study -PT/OT/Speech eval -Hold BP medications to allow for permissive hypertension for 24 hours unless SBP greater than 220 or DBP greater than 120 or until stroke is ruled out -She is on aspirin and Xarelto at home, spoke with Dr. Jacobs, will hold xeralto and continue aspirin -New right-sided weakness right leg more than right arm the patient unable to give more history than that, CT head with no acute bleed, will get MRI -Continue statin #Coronary artery disease status post stent -On aspirin and statin, had recent stress test with a moderate to large fixed inferior defect consistent with history of prior ME with no reversible defects noted -EKG with some nonspecific ST changes but denies chest pain #DVT ppx: SCDs Angelique Dejesus MD Time spent in the patient's overall evaluation,decision-making process, review of diagnostic data, adjustment of management, discussion with other providers, nursing nursing and ancillary staff involved in patient's care documentation, 60 minutes Charges/Coding Visit Charges Inpatient E&M: 64098 Init Hosp L2
--- NOTE | 2023-02-06 14:38 | ECHOD_ITS ---
Reason For Study: TIA/CVA Procedure This was a 2D Doppler, Color Flow transthoracic echocardiogram. Exam performed portable in patient room. Left Ventricle Normal LV size. The estimated ejection fraction is 70 %. Normal diastology for age. No regional wall motion abnormalities noted. Right Ventricle Normal RV size. Normal systolic function. Atria Normal left atrium. Normal right atrium. No doppler evidence for ASD. Bubble contrast study negative for right to left interatrial shunt. Mitral Valve There is no mitral valve stenosis. Trivial mitral valve insufficiency. Tricuspid Valve There is no tricuspid stenosis. Trivial tricuspid valve insufficiency. Unable to estimate RV systolic pressure due to insufficient tricuspid regurgitant envelope. Aortic Valve Trisinus/trileaflet aortic valve. There is no aortic stenosis. No aortic valve insufficiency. Pulmonic Valve There is no pulmonic valvular stenosis. No pulmonic valve insufficiency. Great Vessels Normal aortic root. Pericardium/Pleural No pericardial effusion. Medication Performed a rapid injection of agitated mix of 9 cc saline and 1cc air to assess for atrial septal defect. MMode/2D Measurements & Calculations LVIDd: 4.5 cm IVSd: 1.1 cm Ao root diam: 3.0 cm LVIDs: 2.7 cm LVPWd: 1.1 cm RVDd: 2.5 cm FS: 41.4 % LAV(MOD-bp): 56.8 ml LA A4 area: 18.4 cm2 LA dimension(2D): 3.2 cm LAV(MOD-bp) Indexed: 33.0 ml/m2 LAV(MOD-sp2): 55.1 ml LAV(MOD-sp4): 46.8 ml RA A4 area: 10.9 cm2 Time Measurements MV dec time: 0.18 sec Doppler Measurements & Calculations MV E max jean-paul: 73.5 cm/sec Lat Peak E' Jean[place]: 12.5 cm/sec Med Peak E' [place]: 8.5 cm/sec MV A max jean-paul: 82.4 cm/sec E/E' lat: 5.9 E/E' med: 8.6 MV E/A: 0.89 MV dec slope: 414.9 cm/sec2 Ao V2 max: 147.3 cm/sec LV V1 max: 131.0 cm/sec Ao max P.7 mmHg LV V1 max P.9 mmHg Ao V2 mean: 105.5 cm/sec LV V1 mean P.9 mmHg Ao mean P.0 mmHg LV V1 mean: 94.6 cm/sec Ao V2 VTI: 25.9 cm LV V1 VTI: 26.4 cm AV (velocity ratio): 1.0 PA V2 max: 105.3 cm/sec ECHO/Echo Complete Interpretation Summary The estimated ejection fraction is 70 %. Trivial mitral valve insufficiency. Ordering Physician: Angelique Dejesus Referring Physician: Arcenio Jones Performed By: Manisha Brown RDCS, RVT
--- NOTE | 2023-02-06 14:38 | CT_ITS ---
INDICATION: Neuro deficit, acute, stroke suspected EXAMINATION: CTA HEAD - CTA Head and Neck W/ Contrast Injection (and W/O Contrast Images if performed) TECHNIQUE: [place] [facility] [place]/head CT angiogram protocol was performed following IV contrast. Routine carotid CT angiogram protocol was performed without and with IV contrast. NASCET criteria using the distal ICAs for comparison were used for evaluation of stenoses. 3D reconstructions were reviewed of the CT angiogram head and neck. A radiation dose optimization technique was used for this scan. IV Contrast dosage and agent: 100 cc [id number] COMPARISON: CTA head and neck 01/24/2023. FINDINGS: --Anterior cerebral circulation: ACAs: No significant stenosis at the visualized segments. ACOM: Not identified. MCAs: No significant stenosis at the visualized segments. --Posterior cerebral circulation: PCOMs: Present bilaterally foot miter operator: No significant stenosis at the visualized segments. BASILAR ARTERY: No significant stenosis. --Carotid and vertebral circulation: AORTIC ARCH AND BRANCHES: Normal anatomy, patent. RIGHT CCA: No occlusion, significant stenosis or dissection. RIGHT ICA: Soft plaquing along the proximal segment results in less than 50% stenosis LEFT CCA: No occlusion, significant stenosis or dissection. LEFT ICA: Proximal 1 cm of the left internal carotid artery appears virtually completely occluded. More distal extracranial portion is patent but small in caliber. RIGHT VERTEBRAL ARTERY: No occlusion, significant stenosis or dissection. LEFT VERTEBRAL ARTERY: Difficult to evaluate due to high contrast content within the adjacent venous structures. The vessel appears patent but is congenitally small in size. NECK SOFT TISSUES: Unremarkable. LUNG APICES: Clear. BONES: Anterior fusion with disc implant in place at C5-[address]/STROKE CTA Head AND Neck W/Con IMPRESSION: Virtual complete occlusion of the proximal once centimeter of the left internal carotid artery. No evidence of intracranial stenosis or occlusion. N.B. : The above Results were Read Back by Sukhwinder Hyatt MD to Angelique Dejesus MD, and understanding confirmed on 02/06/2023 15:26:03 (ET). Electronically Signed: Sukhwinder Hyatt MD at 15:31 EDT ,
--- NOTE | 2023-02-06 14:38 | MRI_ITS ---
We are attempting to reach an attending provider to discuss findings. An addendum with communication details will be sent when the communication is complete. EXAM: MR HEAD WITHOUT INTRAVENOUS CONTRAST CLINICAL INDICATION: Suspect stroke TECHNIQUE: Multiplanar and multisequence MR images of the brain were obtained without intravenous contrast. This report was created using [employer] report generation technology. COMPARISON: CT brain 02/06/2023 FINDINGS: BRAIN AND EXTRA-AXIAL SPACES: Abnormal signal intensity within the left frontal lobe corresponding to the known subacute infarct. Small focal areas of restricted diffusion noted within the left cerebral hemisphere adjacent to the lateral ventricle along the frontal and parietal lobes suggestive of acute ischemic changes involving the watershed area. Increased T2 signal intensity within the cerebral white matter suggestive of chronic microvascular change. No intra- or extra-axial hemorrhage. No intracranial mass or mass effect. Posterior fossa structures are unremarkable. No hydrocephalus. Basal cisterns are patent. SELLA: Normal. Normal sella turcica, pituitary gland, infundibular stalk, optic chiasm and hypothalamus. AUDITORY SYSTEM: Normal. The internal auditory canals are patent. BONES/JOINTS: Intact calvarium. SINUSES: Unremarkable as visualized. Clear. MASTOID AIR CELLS: Unremarkable as visualized. Clear. ORBITS: Unremarkable as visualized. Both globes, extraocular muscles, optic nerves and retrobulbar fat appear unremarkable. VASCULATURE: Unremarkable as visualized. Normal flow voids in the major intracranial circulation. MRI/Brain without Contrast IMPRESSION: 1. Several small focal areas of acute ischemic change within the watershed region of the left frontal and parietal lobes. 2. Subacute left frontal infarct. Electronically Signed: Sukhwinder Hyatt MD at 17:02 EDT ,
--- NOTE | 2023-02-06 15:12 | ED.RN ---
called MRI that 1st unit of blood is finished, ready for MRI. call when testing completed for pt to be transported to floor.
--- NOTE | 2023-02-06 15:14 | ED.RN ---
called Keron in PCU to inform of MRI prior to admission.
--- NOTE | 2023-02-06 16:21 | CDU_ITS ---
Reason For Study: carotid stenosis Rt. Velocities/BP Lt. Velocities/BP Prox CCA 103.6/24.5 cm/sec. Prox CCA 48.5/11.6 cm/sec. Mid CCA 98.1/33.3 cm/sec. Mid CCA 65.5/18.2 cm/sec. Dist CCA 75.1/27.8 cm/sec. Dist CCA 71.1/24.8 cm/sec. Prox ICA 187.2/77.5 cm/sec. Prox ICA 810.5/429.7 cm/sec. Mid ICA 202.6/77.5 cm/sec. Mid ICA 155.4/88.7 cm/sec. Dist ICA 180.7/70.9 cm/sec. Dist ICA 63.4/25.3 cm/sec. Rt. ICA/CCA = 2.1. Lt. ICA/CCA = 12.4. Prox ECA 89.4/15.7 cm/sec. Prox ECA 100.3/12.4 cm/sec. Rt. Vert. 67.9/33.5 cm/sec. Lt. Vert. 51.1/14.2 cm/sec. Right Extracranial There is homogeneous, smooth atherosclerotic plaque noted in the right common carotid artery. There is heterogeneous, irregular atherosclerotic plaque noted in the right internal carotid artery. There is homogeneous, smooth atherosclerotic plaque noted in the right external carotid artery. Antegrade flow is noted in the right vertebral artery. Left Extracranial There is homogeneous, smooth atherosclerotic plaque noted in the left common carotid artery. There is heterogeneous, irregular atherosclerotic plaque noted in the left internal carotid artery. There is homogeneous, smooth atherosclerotic plaque noted in the left external carotid artery. Antegrade flow is noted in the left vertebral artery. Procedure Carotid Duplex 33700. This is a Carotid Duplex examination using B-mode, color flow and specral Doppler. The exam was diagnostic. Prelim to the PCU discharge specialist and Dr. Jacobs's office (Hina CAREY). Exam performed portable in patient room. VL/Carotid Duplex Ultrasound Interpretation Summary Moderate (50-69%) stenosis right extracranial internal carotid. Severe (>70%) stenosis left extracranial internal carotid. Patent and antegrade vertebrals bilaterally. Ordering Physician: Angelique Dejesus Performed By: Anthony Stewart RVT
--- NOTE | 2023-02-06 17:39 | TELEMED_ITS ---
[facility] has confirmed receipt of a request for visit. This document confirms receipt of the order initiating the consult. To find the results of the consultation, please view the patient's reports for the scanned Telemed Consult.
--- NOTE | 2023-02-06 18:01 | CON.PCM.GI_ITS ---
HPI Consult Data Date of Consult: 02/06/23 HPI Narrative Reason for Consultation: Anemia HPI Narrative: ZARA FRANCISCO, is a 57 F who presents via EMS after a fall at home.? She had a stroke approximate month ago while in [place].? She has difficulty with speech since that time.? She is able to answer yes and no questions.? Patient reporte jose alfredo fell today and is complaining of some left upper arm pain.? She states that she is [id number].? She denies striking her head or loss of consciousness.? It is noted that the patient is on Xarelto.? Patient has a significant carotid stenosis and is undergoing preop clearance for surgical repair. I was called because the patient was determined to have a hemoglobin of 5. She was also found to be a local positive. She takes Xarelto, aspirin, atorvastatin on a daily basis. She has not had a colonoscopy in the past. [facility] Medical History Atherosclerotic heart disease of platinum coronary artery without angina pectoris Encounter for screening for COVID-19 Essential hypertension Expressive aphasia H/O ischemic left MCA stroke History of MD (myocardial infarction) Hyperlipidemia Home Medications aspirin 81 mg chewable tablet 81 mg PO DAILY@0800 HEALTH MAINTENANCE 05/13/14 [History Last Taken 02/06/23] nitroglycerin 0.4 mg sublingual tablet 0.4 mg sublingual Q5-15M PRN Chest Pain 09/25/19 [History Last Taken Unknown] amlodipine 5 mg tablet 5 mg PO BID BP 01/24/23 [History Last Taken 02/06/23] rivaroxaban 20 mg tablet (Xarelto) 20 mg PO DAILY BLOOD THINNER 01/24/23 [History Last Taken Unknown] atorvastatin 80 mg tablet 80 mg PO QHS CHOLESTEROL 02/06/23 [History Last Taken Unknown] telmisartan 80 mg tablet (Micardis) 80 mg PO DAILY HEART 02/06/23 [History Last Taken Unknown] Allergy/AdvReac Type Severity Reaction Status Date / Time celecoxib [From Celebrex] Allergy Severe Other Verified 01/28/23 10:24 isosorbide mononitrate Allergy Severe Other Verified 01/28/23 10:24 [From Imdur] meloxicam [From Mobic] Allergy Severe Nausea/Vom/ Verified 01/28/23 10:24 Diarrhea Family History Father Hypertension Cancer Mother Hypertension Uncle Diabetes Grandfather Cancer Grandmother Cancer Surgical History H/O: hysterectomy History of cholecystectomy History of coronary artery stent placement (02/17/11) History of excision of lamina of cervical vertebra for decompression of spinal cord History of left heart catheterization Social History Smoking Status: Current every day smoker tobacco type: cigarettes alcohol intake: never substance use type: does not use ROS ROS Narrative she has expressive aphasia and has difficulty answering questions but was able to endorse that her right-sided weakness is new, denies chest pain or shortness of breath. She was unable to endorse any other pertinent ROS. Physical Exam Narrative General: Alert, patient unable to answer orientation questions, no acute distress HEENT: Atraumatic, normocephalic Eyes: Anicteric, normal conjunctiva, extraocular movements grossly intact but had difficulty following command, pupils equal Neck: Supple Respiratory: Clear to auscultation bilaterally, normal respiratory effort Cardiovascular: Regular rate and rhythm GI: Soft, nontender, nondistended Extremities: No edema Musculoskeletal: Moving left upper and lower extremities without difficulty, right upper extremity slight decrease in weakness, right lower extremity profoundly weak Neuro: Face moving symmetrically, does have expressive aphasia noted, had difficulty following other neuro commands Skin: No rashes appreciated Psych: Cooperative Lab / Micro Data Result Diagrams: 02/06/23 11:01 02/06/23 11:01 Labs: Laboratory Results - last 24 hr 02/06/23 11:01: WBC 7.8, RBC 1.76 L, Hgb 5.0 L*, Hct 15.9 L, MCV 90.3, MCH 28.4, MCHC 31.4 L, RDW Std Deviation 49.3 H, RDW Coeff of Fidel 15.2 H, Plt Count 348, MPV 12.2 H, Immature Gran % (Auto) 0.100, Neut % (Auto) 72.1 H, Lymph % (Auto) 18.4 L, [place] % (Auto) 8.2, Eos % (Auto) 0.6, Baso % (Auto) 0.6, Absolute Neuts (auto) 5.6, Absolute Lymphs (auto) 1.44, Nucleated RBC % 0, Polychromasia 1+, Hypochromasia 1+, Anisocytosis 1+ 02/06/23 11:01: Sodium 142, Potassium 3.2 L, Chloride 108 H, Carbon Dioxide 27.0, Anion Gap 7, BUN 22 H, Creatinine 0.72, Estim Creat Clear Calc 80.70, Est GFR (MDRD) Af Amer 108, Est GFR (MDRD) Non-Af 89, BUN/Creatinine Ratio 30.7 H, Glucose 146 H, Calcium 9.0 02/06/23 11:30: Blood Type A POSITIVE, Antibody Screen NEGATIVE, Crossmatch See Detail 02/06/23 12:00: Urine Color Yellow, Urine Clarity Clear, Urine pH 5.0, Ur Specific [place] 1.020, Urine Protein 15 H, Urine Glucose (UA) Normal, Urine Ketones Negative, Urine Occult Blood Negative, Urine Nitrite Negative, Urine Bilirubin Negative, Urine Urobilinogen 4 H, Ur Leukocyte Esterase Negative, Urine RBC 0 SEEN, Urine WBC 0-5 SEEN, Ur Squamous Epith Cells 0 SEEN, Urine Bacteria 1+, Urine Mucus 2+ Micro: Microbiology 02/06/23 12:00 Stool Stool Occult Blood (ELSY) - Final Occult Blood Positive Radiology Impression Brain CT 02/06/23 10:41 IMPRESSION: Persistent hypoattenuation in the left temporoparietal lobes consistent with recent infarct. No acute hemorrhage, no midline shift. No skull fracture scalp hematoma or significant interval change since the previous study Electronically Signed: Praedep oSng MD at 11:26 EDT , Hip/Pelvis X-Ray 02/06/23 10:41 IMPRESSION: No evidence of displaced pelvic or hip fracture. Electronically Signed: Sukhwinder Hyatt MD at 11:49 EDT , Humerus X-Ray 02/06/23 10:41 IMPRESSION: Normal x-ray examination of the humerus. Electronically Signed: Kingston Gold MD at 11:50 EDT , Chest X-Ray 02/06/23 11:15 IMPRESSION: No acute cardiopulmonary abnormality. No interval change. Electronically Signed: Sukhwinder Hyatt MD at 11:46 EDT , Brain MRI 02/06/23 14:38 IMPRESSION: 1. Several small focal areas of acute ischemic change within the watershed region of the left frontal and parietal lobes. 2. Subacute left frontal infarct. Electronically Signed: Sukhwinder Hyatt MD at 17:02 EDT , ADDENDUM: 02/06/23 1725 IMPRESSION: 1. Several small focal areas of acute ischemic change within the watershed region of the left frontal and parietal lobes. 2. Subacute left frontal infarct. N.B. : The above Results were Read Back by Sukhwinder Hyatt MD to Keron Simmons RN, and understanding confirmed on 02/06/2023 17:18:27 (ET). Electronically Signed: Sukhwinder Hyatt MD at 17:02 EDT , Head/Neck CTA 02/06/23 14:38 IMPRESSION: Virtual complete occlusion of the proximal once centimeter of the left internal carotid artery. No evidence of intracranial stenosis or occlusion. N.B. : The above Results were Read Back by Sukhwinder Hyatt MD to Angelique Dejesus MD, and understanding confirmed on 02/06/2023 15:26:03 (ET). Electronically Signed: Sukhwinder Hyatt MD at 15:31 EDT , ADDENDUM: 02/06/23 1538 IMPRESSION: Virtual complete occlusion of the proximal once centimeter of the left internal carotid artery. No evidence of intracranial stenosis or occlusion. N.B. : The above Results were Read Back by Sukhwinder Hyatt MD to Angelique Dejesus MD, and understanding confirmed on 02/06/2023 15:26:03 (ET). Electronically Signed: Sukhwinder Hyatt MD at 15:31 EDT , Assessment & Plan Assessment/Plan (1) Anemia: PLAN: Likely slowing chronic GI bleed versus subacute GI bleed from unknown cause. Can be upper GI bleed versus lower GI bleed. I do agree with PPI drip at this time. Patient should undergo an upper lower endoscopy for evaluation of her upper lower GI tract so she can safely be put back on anticoagulation. She was explained alternatives, risk, benefits include not withstanding bleeding, infection, sepsis, perforation, need for emergent surgery . She have an ASA of 3. Charges/Coding Visit Charges Inpatient E&M: 80408 Init Hosp L2
[2023-02-06 18:44] LABS: Hematocrit 20.8 % (37-47); Hemoglobin 6.5 g/dL (12.0-15.0)
[2023-02-06] MEDS: Polyethylene Glycol 3350 BOWEL PREP PO (19:53)
--- NOTE | 2023-02-06 20:41 | PCM.HOSP.N ---
Hospitalist Note Brain MRI resulted with several small focal areas of acute ischemic change within the watershed region of the left frontal and parietal lobes and subacute left frontal infarct. Neurology consulted given new neuro symptoms and concern that this was in part a new stroke. They agreed with holding Xarelto and the importance of aspirin however recommended making sure hemoglobin mireya appropriately and no overt bleeding before giving a.m. dose, order held pending repeat hemoglobin and verifying no further overt bleeding. Patient to have upper and lower endoscopies with GI, n.p.o. at midnight
[2023-02-06] MEDS: Bisacodyl 5 MG Tablet 20 MG PO (21:19)
[2023-02-06] MEDS: Atorvastatin Calcium 80 MG Tablet PO (21:20)
[2023-02-07] VITALS (12 sets, daily range): BP systolic 97–157; BP diastolic 66–88; PULSE 69–82; RESP 16–18; TEMP 36.2–37.1; O2SAT 97–100; BMI 21.4
[2023-02-07] MEDS: 0.9% Normal Saline 1,000 ML 150 ML IV ×4 (00:29→22:45)
[2023-02-07 01:51] LABS: Hematocrit 27.8 % (37-47); Hemoglobin 9.2 g/dL (12.0-15.0)
--- NOTE | 2023-02-07 05:55 | EKG12_ITS ---
Test Reason : AM Blood Pressure : / mmHG Vent. Rate : 077 BPM Atrial Rate : 077 BPM P-R Int : 110 ms QRS Dur : 098 ms QT Int : 420 ms P-R-T Axes : 019 021 094 degrees QTc Int : 475 ms Sinus rhythm with short [place] Nonspecific ST and T wave abnormality Prolonged QT Abnormal ECG When compared with ECG of 06-FEB-2023 10:48, MANUAL COMPARISON REQUIRED, DATA IS UNCONFIRMED Confirmed by MARBELLA PERERA, LAURIE ([id number]), editor magazine GERRI MILAN ([id number]) on 02/08/2023 2:06:09 PM Referred By: Confirmed By:RUSTAM TYSON MD
--- NOTE | 2023-02-07 05:57 | NURSING ---
Pt refused bowel prep this evening. Pt given tap water enemas in attempt top be prepped for colonoscopy. Pt tolerated the first 2 enemas and refused the third enema. Pt is not completely prepped. Dr. Cowan made aware and plans to just do the EGD today.
[2023-02-07 06:41] LABS: AST(SGOT) 18 U/L (15-37); Alanine Aminotransfer ALT/SGPT 19 U/L (13-56); Albumin, Serum 2.9 g/dL (3.2-5.0); Alkaline Phosphatase 122 U/L (45-117); Anion Gap 10 (5-15); BUN 10 mg/dL (7-18); BUN/Creat Ratio 21.6 RATIO (10-20); Calcium,Total 8.3 mg/dL (8.5-10.1); Chloride 113 mmol/L (98-107); Cholesterol 126 mg/dL (200); Creatinine, Serum 0.46 mg/dL (0.55-1.02); EST Glomerular Filtration Rate 148 mL/min (>60); Est Glom Filt Rate - Afr Amer 179 mL/min (>60); Estimated Creatinine Clearance 131.22 ml/min; Globulin 2.9 g/dL (2.2-4.2); Glucose 138 mg/dL (74-106); High Density Lipoprotein 23 mg/dL; Potassium 3.4 mmol/L (3.5-5.1); Protein, Total 5.8 g/dL (6.4-8.2); Sodium Level 142 mmol/L (136-145); Triglycerides 165 mg/dL; Very Low Density Lipoprotein 33 mg/dL (5-40)
--- NOTE | 2023-02-07 07:35 | PN.HOSP_ITS ---
Reason for Visit Reason for Visit: Weakness/fall Subjective Subjective Ms Waldron is a 57-year-old female with a complex medical history including CAD/critical ICA stenosis suffering from a stroke 1 month ago in [place] with resultant expressive aphasia who presented to the emergency department was prehospital on 02/06/2023 with generalized weakness. She was seen 2 weeks ago here for stroke and had been following with Dr. Jacobs with plans for carotid artery surgery later this month after undergoing cardiac clearance. Upon presentation she was found to have a hemoglobin of 5. Her hemoglobin 2 weeks ago was 12.7. Her stool was guaiac positive. CT of the brain was unremarkable. Multiple x-rays were performed due to her fall and were all found to be negative for any acute fractures. She was ordered 3 units of packed red blood cells in the emergency department. She was found to have new onset right-sided weakness at the time of presentation. She is left-hand dominant. She was placed on a PPI drip and her Xarelto was held. She was maintained on her aspirin. GI has recommended an EGD and a colonoscopy. Neuro also evaluated the patient and agreed with discontinuation of her anticoagulation and antiplatelet therapy and continuing high-dose statin and left CEA per vascular surgery once cleared. She will require close outpatient neurological follow-up at discharge. She did have a stress test on 01/31/2023 which showed a moderate to large fixed inferior defect consistent with the patient's previous history of myocardial infarction with no reversible defects noted, inferior hypokinesis and an EF of 39%. NIH is are hovering around 9. Speech remains with expressive aphasia. Follows commands well. Right upper extremity and lower extremity strength seems to be improving now that she has gotten blood, but still with some persistent weakness. EGD is planned for later today however colonoscopy was canceled as patient was not able to drink the prep. I did discuss with her the importance of drinking the prep if the EGD does not find a source of her bleeding. Her was at the bedside. Objective Data Objective Data Vital Signs: Vital Signs Temp Pulse Resp BP Pulse Ox O2 Del Method 97.8 F 82 18 153/77 H 99 Room Air 02/07/23 06:00 02/07/23 06:00 02/07/23 06:00 02/07/23 06:00 02/07/23 06:00 02/07/23 06:42 Oxygen Delivery Method Room Air Weight: 62.3 kg Body Mass Index (BMI) 21.4 Intake & Output: Intake and Output for Last 24 Hours 02/05/23 02/06/23 02/07/23 23:59 23:59 23:59 Intake Total 2235 / 2235 1410.0 / 1410.0 Output Total 0 / 0 400 / 400 Balance 2235 / 2235 1010.0 / 1010.0 Lab / Micro Data Result Diagrams: 02/07/23 10:00 02/07/23 05:28 Labs: Laboratory Results - last 24 hr 02/06/23 11:01: WBC 7.8, RBC 1.76 L, Hgb 5.0 L*, Hct 15.9 L, MCV 90.3, MCH 28.4, MCHC 31.4 L, RDW Std Deviation 49.3 H, RDW Coeff of Fidel 15.2 H, Plt Count 348, MPV 12.2 H, Immature Gran % (Auto) 0.100, Neut % (Auto) 72.1 H, Lymph % (Auto) 18.4 L, [place] % (Auto) 8.2, Eos % (Auto) 0.6, Baso % (Auto) 0.6, Absolute Neuts (auto) 5.6, Absolute Lymphs (auto) 1.44, Nucleated RBC % 0, Diff Path Review May foll, Polychromasia 1+, Hypochromasia 1+, Anisocytosis 1+ 02/06/23 11:01: Sodium 142, Potassium 3.2 L, Chloride 108 H, Carbon Dioxide 27.0, Anion Gap 7, BUN 22 H, Creatinine 0.72, Estim Creat Clear Calc 80.70, Est GFR (MDRD) Af Amer 108, Est GFR (MDRD) Non-Af 89, BUN/Creatinine Ratio 30.7 H, G lucose 146 H, Calcium 9.0 02/06/23 11:30: Blood Type A POSITIVE, Antibody Screen NEGATIVE, Crossmatch See Detail 02/06/23 12:00: Urine Color Yellow, Urine Clarity Clear, Urine pH 5.0, Ur Specific [place] 1.020, Urine Protein 15 H, Urine Glucose (UA) Normal, Urine Ketones Negative, Urine Occult Blood Negative, Urine Nitrite Negative, Urine Bilirubin Negative, Urine Urobilinogen 4 H, Ur Leukocyte Esterase Negative, Urine RBC 0 SEEN, Urine WBC 0-5 SEEN, Ur Squamous Epith Cells 0 SEEN, Urine Bact eria 1+, Urine Mucus 2+ 02/06/23 17:03: Hgb 6.5 L, Hct 20.8 L 02/07/23 01:40: Hgb 9.2 L, Hct 27.8 L 02/07/23 05:28: Sodium 142, Potassium 3.4 L, Chloride 113 H, Carbon Dioxide 19.0 L, Anion Gap 10, BUN 10, Creatinine 0.46 L, Estim Creat Clear Calc 131.22, Est GFR (MDRD) Af Amer 179, Est GFR (MDRD) Non-Af 148, BUN/Creatinine Ratio 21.6 H, Glucose 138 H, Calcium 8.3 L, Total Bilirubin 1.20 H, AST 18, ALT 19, Alkaline Phosphatase 122 H, Total Protein 5.8 L, Albumin 2.9 L, Globulin 2.9, Albumin/Globulin Ratio 1.0, Triglycerides 165, Cholesterol 126, LDL Cholesterol 70, VLDL Cholesterol 33, HDL Cholesterol 23 L Micro: Microbiology 02/06/23 12:00 Stool Stool Occult Blood (ELSY) - Final Occult Blood Positive Radiography Diagnostic Testing: Radiology Impression Brain CT 02/06/23 10:41 IMPRESSION: Persistent hypoattenuation in the left temporoparietal lobes consistent with recent infarct. No acute hemorrhage, no midline shift. No skull fracture scalp hematoma or significant interval change since the previous study Electronically Signed: Pradeep Song MD at 11:26 EDT Reading Location ID and State: [facility] / [place] , Service support , Hip/Pelvis X-Ray 02/06/23 10:41 IMPRESSION: No evidence of displaced pelvic or hip fracture. Electronically Signed: Sukhwinder Hyatt MD at 11:49 EDT , Humerus X-Ray 02/06/23 10:41 IMPRESSION: Normal x-ray examination of the humerus. Electronically Signed: Kingston Gold MD at 11:50 EDT , Chest X-Ray 02/06/23 11:15 IMPRESSION: No acute cardiopulmonary abnormality. No interval change. Electronically Signed: Sukhwinder Hyatt MD at 11:46 EDT , Brain MRI 02/06/23 14:38 IMPRESSION: 1. Several small focal areas of acute ischemic change within the watershed region of the left frontal and parietal lobes. 2. Subacute left frontal infarct. Electronically Signed: Sukhwinder Hyatt MD at 17:02 EDT , ADDENDUM: 02/06/23 1725 IMPRESSION: 1. Several small focal areas of acute ischemic change within the watershed region of the left frontal and parietal lobes. 2. Subacute left frontal infarct. N.B. : The above Results were Read Back by Sukhwinder Hyatt MD to Keron Simmons RN, and understanding confirmed on 02/06/2023 17:18:27 (ET). Electronically Signed: Sukhwinder Hyatt MD at 17:02 EDT , Head/Neck CTA 02/06/23 14:38 IMPRESSION: Virtual complete occlusion of the proximal once centimeter of the left internal carotid artery. No evidence of intracranial stenosis or occlusion. N.B. : The above Results were Read Back by Sukhwinder Hyatt MD to Angelique Dejesus MD, and understanding confirmed on 02/06/2023 15:26:03 (ET). Electronically Signed: Sukhwinder Hyatt MD at 15:31 EDT , ADDENDUM: 02/06/23 1538 IMPRESSION: Virtual complete occlusion of the proximal once centimeter of the left internal carotid artery. No evidence of intracranial stenosis or occlusion. N.B. : The above Results were Read Back by Sukhwinder Hyatt MD to Angelique Dejesus MD, and understanding confirmed on 02/06/2023 15:26:03 (ET). Electronically Signed: Sukhwinder Hyatt MD at 15:31 EDT , Physical Exam Const alert, no apparent distress and well nourished Constitutional Narrative: Middle-aged, white female, sitting up in bed, appears older than stated age, nontoxic HEENT head/scalp atraumatic and moist oral mucous membranes HEENT Narrative: Dentures in place, Mallampati 2, no thrush Head and Scalp: normocephalic Eyes PERRL and EOMs intact bilaterally; Negative for conjunctivae normal Eyes Narrative: Pale conjunctiva bilaterally, no scleral icterus Resp normal respiratory effort, no retractions, no use of accessory muscles and clear to auscultation bilaterally Resp Narrative: Diffusely diminished but clear Auscultation: Negative for rales, rhonchi or wheezes Cardio regular rate, regular rhythm, S1 normal heart sound, S2 normal heart sound, no murmurs, no rub, no gallops and no clicks GI normal to inspection, nondistended, normoactive bowel sounds, soft to palpation and non-tender Extremity no clubbing, cyanosis or edema Extremity Narrative: Pedal pulses are 2+ Neuro CN's II-XII intact bilaterally, No no focal motor deficits and no sensory deficits noted Neuro Narrative: Weakness on right upper and lower extremity, able to hold against gravity with slow drift towards the bed but leg and arm do not hit the bed, patient follows commands well but seems to have fairly significant expressive aphasia Speech: Negative for speech normal Psych Psych Narrative: Affect is somewhat flat and mood seems to be mildly depressed which is to be excepted for current medical situation Assessment & Plan Assessment/Plan (1) GI bleed: (2) Anemia: (3) Right sided weakness: (4) Fall: (5) Carotid artery stenosis: (6) Leukocytosis: (7) Hypokalemia: (8) Acute stroke due to ischemia: PLAN: Plan Acute GI bleed -Hemoglobin on 01/24/2023 was 12.7--> down to 5 on presentation -Stool was guaiac positive -Hold Xarelto -Hold aspirin -Continue Protonix drip -N.p.o. -GI following and plan for EGD and colon today Acute anemia -Patient status post 3 units packed red blood cells on 02/06/2023 -Hemoglobin up to 10.4 from 5 on presentation after blood administration -Plan was for EGD and colonoscopy today however the patient was unable to form drinking the prep therefore EGD will be done -May still need to perform colonoscopy depending on findings of EGD -Trend hemoglobin with CBC in the a.m. Hypokalemia -20 mill equivalents IV potassium administration -Recheck potassium in the morning -Check a.m. magnesium level Leukocytosis -Suspect reactive for blood transfusion and acute stress -No signs of acute infection -Continue to monitor -Repeat CBC in a.m. Acute stroke -Currently with new right-sided weakness--> improved since admission with transfusion--> suspect predominantly elicited by severe anemia -MRI shows several small foci of focal areas of acute ischemic change in the watershed region of the frontal and parietal lobes and a subacute stroke in the left frontal lobe -Neurology consult performed and agreed with holding Xarelto and antiplatelet therapy, agreed with acute transfusion, and recommended management of severe carotid artery stenosis with surgical intervention as soon as medically possible -Continue stroke protocol -Echo with bubble study pending as her initial work-up with previous stroke was done in [place] -Start aspirin as soon as possible -Continue high-dose statin -PT/OT consultation -Speech consultation -Antihypertensives on hold to allow for some permissive hypertension given acute stroke--> restart accordingly -Outpatient neurology follow-up at discharge Recent stroke left MCA -Patient with acute stroke approximately 1 month ago -Critical left internal carotid artery stenosis noted at that time -Management as above -Patient with resultant expressive aphasia Bilateral critical artery stenosis -Vascular is following -With new stroke plan is for intervention on Saturday as long as she can be cleared from a GI standpoint and from a cardiovascular standpoint -Dr. Jacobs has consulted cardiology to weigh in on clearance from a cardiac standpoint. CAD/ischemic cardiomyopathy/HTN/HPL -Aspirin and Xarelto on hold -As needed antihypertensives for now and restart blood pressure accordingly(takes amlodipine 5 mg p.o. twice daily and myocarditis 80 mg daily for blood pressure) -Continue high intensity dose statin -Patient with recent stress test that showed an EF of 39% and fixed perfusion defect related to previous infarct--> done 01/31/2023 Tobacco abuse -recommend cessation DVT prophylaxis -SCDs -Restart Xarelto once okay with gastroenterology CODE STATUS -Full code unverified based on patient's expressive aphasia Charges/Coding Visit Charges Inpatient E&M: 32255 Subs Hosp L2
[2023-02-07 07:48] LABS: Absolute Lymphocyte Count 1.01 X10^3/uL (0.83-4.51); Absolute Neutrophil Count 10.7 X10^3/uL (2.0-7.7); Basophil# 0.05 X10^3/uL; Basophil% 0.4 % (0-1); Eosinophil# 0.17 X10^3/uL; Eosinophils% 1.4 % (0-5); Hematocrit 31.8 % (37-47); Hemoglobin 10.4 g/dL (12.0-15.0); Lymphocyte # 1.01 X10^3/ul (0.83-4.51); Lymphocyte % 8.1 % (19-41); Mean Corp Hgb Conc 32.7 g/dL (32-36); Mean Corpuscular Hgb 28.9 pg (27.0-32.0); Mean Corpuscular Volume 88.3 fL (81-99); Monocyte# 0.56 X10^3/uL; Monocyte% 4.5 % (0-10); NRBC Flagged by Analyzer 0 % (0-5); Neutrophil # 10.67 X10^3/uL (2.7-7.7); Neutrophil % 85.1 % (47-70); Platelet Count 324 K/mm3 (150-450); RBC Distribution Width SD 47.9 fl (35.1-43.9); White Blood Count 12.5 K/mm3 (4.4-11.0)
[2023-02-07 08:14] LABS: International Normalized Ratio 1.2; Partial Thromboplast Time 28.5 Seconds (24.1-36.2); Prothrombin Time (Protime)PT. 15.3 SECONDS (11.7-14.9)
[2023-02-07] MEDS: Potassium Chloride 10mEq/100mL 10 MEQ/100 ML IV.SOLN. 100 MEQ IV BOLUS ×2 (09:44→11:08)
[2023-02-07 10:21] LABS: Hematocrit 30.2 % (37-47); Hemoglobin 9.9 g/dL (12.0-15.0)
[2023-02-07 12:10] LABS: Pathologist Review Reviewed
[2023-02-07] MEDS: Lactated Ringers 1,000 ML 15 ML IV (12:30)
--- NOTE | 2023-02-07 13:28 | OP.EGD_ITS ---
Patient Name: Norma Waldron Procedure Date: 02/07/2023 1:06 PM Date of : 1965 Age: 57 Procedure: Upper GI endoscopy Indications: Iron deficiency anemia Providers: Fran Cowan DO Medicines: Monitored Anesthesia Care Patient Profile: This is a 57 year old female. Refer to note in patient chart for documentation of history and physical. Patient has symptoms of acute epigastric abdominal pain and acute nausea. Complications: No immediate complications. Procedure: Pre-Anesthesia Assessment: - Prior to the procedure, a History and Physical was performed, and patient medications and allergies were reviewed. The risks and benefits of the procedure and the sedation options and risks were discussed with the patient. All questions were answered and informed consent was obtained. Patient identification and proposed procedure were verified by the physician in the pre-procedure area. Mental Status Examination: alert and oriented. Airway Examination: normal oropharyngeal airway and neck mobility. Respiratory Examination: clear to auscultation. CV Examination: normal. Prophylactic Antibiotics: The patient does not require prophylactic antibiotics. Prior Anticoagulants: The patient has taken no previous anticoagulant or antiplatelet agents. ASA Grade Assessment: II - A patient with mild systemic disease. After reviewing the risks and benefits, the patient was deemed in satisfactory condition to undergo the procedure. The anesthesia plan was to use monitored anesthesia care (MAC). Immediately prior to administration of medications, the patient was re-assessed for adequacy to receive sedatives. The heart rate, respiratory rate, oxygen saturations, blood pressure, adequacy of pulmonary ventilation, and response to care were monitored throughout the procedure. The physical status of the patient was re-assessed after the procedure. After obtaining informed consent, the endoscope was passed under direct vision. Throughout the procedure, the patient's blood pressure, pulse, and oxygen saturations were monitored continuously. The gastroscope was introduced through the mouth, and advanced to the second part of duodenum. The upper GI endoscopy was accomplished without difficulty. The patient tolerated the procedure well. Scope In: 1:20:02 PM Scope Out: 1:24:21 PM Total Procedure Duration Time 0 hours 4 minutes 19 seconds Findings: The examined esophagus was normal. Patchy mild inflammation characterized by erythema was found in the gastric body. Biopsies were taken with a cold forceps for histology. Two 5 mm angiodysplastic lesions without bleeding were found in the duodenal bulb. Coagulation for bleeding prevention using monopolar probe was successful. Estimated blood loss was minimal. Impression: - Normal esophagus. - Bile gastritis. Biopsied. 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 Treated with a monopolar probe. Recommendation: - Return patient to [facility] ongoing care. - Resume regular diet. - Continue present medications. Procedure Code(s): --- Professional --- 27304, 59, Esophagogastroduodenoscopy, flexible, transoral; with control of bleeding, any method 28076, 51, Esophagogastroduodenoscopy, flexible, transoral; with biopsy, single or multiple CPT copyright 2017 [employer]. All rights reserved. The codes documented in this report are preliminary and upon assistant field hockey coach review may be revised to meet current compliance requirements. Fran Cowan DO 02/07/2023 1:27:58 PM This report has been signed electronically. Number of Addenda: 0 Note Initiated On: 02/07/2023 1:06 PM
--- NOTE | 2023-02-07 13:29 | OP.CCLET_ITS ---
02/07/2023 Arcenio Jones MD Re : Upper GI endoscopy procedure for Norma Waldron Dear Dr. Jones This procedure was performed on January. My impressions and recommendations are as follows: Impressions : - Normal esophagus. - Bile gastritis. Biopsied. 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 Treated with a monopolar probe. Recommendations : - Return patient to [facility] care. - Resume regular diet. - Continue present medications. My findings are described in the full procedure note, which is enclosed. If I can be of further assistance, please feel free to contact me at . Sincerely, Fran Cowan, 02/07/2023 1:27:58 PM This report has been signed electronically.
--- NOTE | 2023-02-07 14:38 | CON.PCM.SX_ITS ---
Assessment & Plan Assessment/Plan (1) Carotid artery stenosis: PLAN: -acute blood loss anemia, presumed GI source -endoscopy today -cont asa if at all possible -left ICA remains patent with critical stenosis -motor exam improved after volume resuscitation -plan endarterectomy Saturday if medically fit and bleeding source identified/reso lved -cardiology to evaluate; missed appt yesterday -avoid hypotension/dehydration HPI Consult Data Date of Consult: 02/07/23 HPI Narrative HPI Narrative: ZARA FRANCISCO, is a 57 F who presents with left ICA stenosis, recent stroke in late Dec in [place] with expressive aphasia as only symptom. She was hospitalized there and eventually discharged on Xarelto, statin. She then traveled here and presented first to ED then office with no new symptoms but to establish plan for care. She was residing in [place] and all recent care including PCP was there. Given size of stroke we had planned for left CEA ~ 02/22 after stress test and cardiology evaluation. She presented 02/06 with falls and new right side weakness upper/lower and facial droop. Her hgb was 5, had been 12.7 in ED approx 2 weeks prior. She was admitted, Xarelto held, 3 uprbc transfused. Currently her extremity weakness is improved, some cont facial droop. MRI showed stable size subacute infarct with new water shed distribution ischemic changes. CTA revealed left ICA patent. Duplex confirmed. [facility] Medical History Atherosclerotic heart disease of [place] coronary artery without angina pectoris Encounter for screening for COVID-19 Essential hypertension Expressive aphasia H/O ischemic left MCA stroke History of [place] (myocardial infarction) Hyperlipidemia Home Medications aspirin 81 mg chewable tablet 81 mg PO DAILY@0800 HEALTH MAINTENANCE 05/13/14 [History Last Taken 02/06/23] nitroglycerin 0.4 mg sublingual tablet 0.4 mg sublingual Q5-15M PRN Chest Pain 09/25/19 [History Last Taken Unknown] amlodipine 5 mg tablet 5 mg PO BID BP 01/24/23 [History Last Taken 02/06/23] rivaroxaban 20 mg tablet (Xarelto) 20 mg PO DAILY BLOOD THINNER 01/24/23 [History Last Taken Unknown] atorvastatin 80 mg tablet 80 mg PO QHS CHOLESTEROL 02/06/23 [History Last Taken Unknown] telmisartan 80 mg tablet (Micardis) 80 mg PO DAILY HEART 02/06/23 [History Last Taken Unknown] Allergy/AdvReac Type Severity Reaction Status Date / Time celecoxib [From Celebrex] Allergy Severe Other Verified 01/28/23 10:24 isosorbide mononitrate Allergy Severe Other Verified 01/28/23 10:24 [From Imdur] meloxicam [From Mobic] Allergy Severe Nausea/Vom/ Verified 01/28/23 10:24 Diarrhea Family History Father Hypertension Cancer Mother Hypertension Uncle Diabetes Grandfather Cancer Grandmother Cancer Surgical History H/O: hysterectomy History of cholecystectomy History of coronary artery stent placement (02/17/11) History of excision of lamina of cervical vertebra for decompression of spinal cord History of left heart catheterization Social History Smoking Status: Current every day smoker tobacco type: cigarettes alcohol intake: never substance use type: does not use ROS Constitutional Constitutional: Reports lethargy and weakness; Denies chills, fever(s) or frequent falls Eyes Eyes: Denies blind spots, change in vision or loss of vision Cardiovascular Cardiovascular: Reports numbness in extremities and weakness in extremities; Denies abdominal pain Gastrointestinal Gastrointestinal: Reports anorexia; Denies change in stool character, constipation, diarrhea, melena or rectal bleeding Genitourinary Genitourinary: Denies dysuria or hematuria Musculoskeletal Musculoskeletal: Reports abnormal gait Integumentary Integumentary: Reports non-healing lesions, wounds and other Details: Neurologic Neurologic: Reports abnormal speech, focal weakness and numbness; Denies loss of vision Hematologic/Lymphatic Hematologic/Lymphatic: Denies easy bleeding, easy bruising or lymphadenopathy Physical Exam Const alert, oriented x3, no apparent distress and healthy appearing General Appearance: cooperative; Negative for combative or lethargic Orientation / Consciousness: awake Exam Limitations: no limitations HEENT Head and Scalp: normocephalic and atraumatic Eyes EOMs intact bilaterally General Eye: normal appearance of both eyes Neck full ROM General: trachea midline Resp normal respiratory effort and no use of accessory muscles Effort and Inspection: Negative for labored, stridor or audible wheezes Cardio regular rate and regular rhythm Back/Spine Cervical Spine: cervical ROM normal Extremity full ROM, normal capillary refill and no clubbing, cyanosis or edema Skin no rashes or lesions noted Neuro oriented x3 Neuro Narrative: right facial droop RLE 4/5, RUE 4/5 Speech: expressive aphasia Psych thought process normal, cooperative, affect normal and activity/motor behavior normal Lab / Micro Data Result Diagrams: 02/07/23 10:00 02/07/23 05:28 Labs: Laboratory Results - last 24 hr 02/06/23 11:01: Diff Path Review Reviewed 02/06/23 11:30: Blood Type A POSITIVE, Antibody Screen NEGATIVE, Crossmatch See Detail 02/06/23 17:03: Hgb 6.5 L, Hct 20.8 L 02/07/23 01:40: Hgb 9.2 L, Hct 27.8 L 02/07/23 05:28: Sodium 142, Potassium 3.4 L, Chloride 113 H, Carbon Dioxide 19.0 L, Anion Gap 10, BUN 10, Creatinine 0.46 L, Estim Creat Clear Calc 131.22, Est GFR (MDRD) Af Amer 179, Est GFR (MDRD) Non-Af 148, BUN/Creatinine Ratio 21.6 H, Glucose 138 H, Calcium 8.3 L, Total Bilirubin 1.20 H, AST 18, ALT 19, Alkaline Phosphatase 122 H, Total Protein 5.8 L, Albumin 2.9 L, Globulin 2.9, Albumin/Globulin Ratio 1.0, Triglycerides 165, Cholesterol 126, LDL Cholesterol 70, VLDL Cholesterol 33, HDL Cholesterol 23 L 02/07/23 07:15: WBC 12.5 H, RBC 3.60 L, Hgb 10.4 L, Hct 31.8 L, MCV 88.3, MCH 28.9, MCHC 32.7, RDW Std Deviation 47.9 H, RDW Coeff of Fidel 15.0 H, Plt Count 324, MPV 12.0, Immature Gran % (Auto) 0.500, Neut % (Auto) 85.1 H, Lymph % (Auto) 8.1 L, [place] % (Auto) 4.5, Eos % (Auto) 1.4, Baso % (Auto) 0.4, Absolute Neuts (auto) 10.7 H, Absolute Lymphs (auto) 1.01, Nucleated RBC % 0 02/07/23 07:15: PT 15.3 H, INR 1.2, APTT 28.5 02/07/23 10:00: Hgb 9.9 L, Hct 30.2 L Micro: Microbiology 02/06/23 12:00 Stool Stool Occult Blood (ELSY) - Final Occult Blood Positive Radiology Impression Brain MRI 02/06/23 14:38 IMPRESSION: 1. Several small focal areas of acute ischemic change within the watershed region of the left frontal and parietal lobes. 2. Subacute left frontal infarct. Electronically Signed: Sukhwinder Hyatt MD at 17:02 EDT , ADDENDUM: 02/06/23 1725 IMPRESSION: 1. Several small focal areas of acute ischemic change within the watershed region of the left frontal and parietal lobes. 2. Subacute left frontal infarct. N.B. : The above Results were Read Back by Sukhwinder Hyatt MD to Keron Simmons RN, and understanding confirmed on 02/06/2023 17:18:27 (ET). Electronically Signed: Sukhwinder Hyatt MD at 17:02 EDT , Echocardiogram 02/06/23 14:38 Interpretation Summary The estimated ejection fraction is 70 %. Trivial mitral valve insufficiency. Ordering Physician: Angelique Dejesus Referring Physician: Arcenio Jones Performed By: Manisha Brown, DATCS, RVT Head/Neck CTA 03/15/23 14:38 IMPRESSION: Virtual complete occlusion of the proximal once centimeter of the left internal carotid artery. No evidence of intracranial stenosis or occlusion. N.B. : The above Results were Read Back by Sukhwinder Hyatt MD to Angelique Dejesus MD, and understanding confirmed on 02/06/2023 15:26:03 (ET). Electronically Signed: Sukhwinder Hyatt MD at 15:31 EDT , ADDENDUM: 02/06/23 1538 IMPRESSION: Virtual complete occlusion of the proximal once centimeter of the left internal carotid artery. No evidence of intracranial stenosis or occlusion. N.B. : The above Results were Read Back by Sukhwinder Hyatt MD to Angelique Dejesus MD, and understanding confirmed on 02/06/2023 15:26:03 (ET). Electronically Signed: Sukhwinder Hyatt MD at 15:31 EDT , Carotid Duplex 02/06/23 16:21 Interpretation Summary Moderate (50-69%) stenosis right extracranial internal carotid. Severe (>70%) stenosis left extracranial internal carotid. Patent and antegrade vertebrals bilaterally. Ordering Physician: Angelique Dejesus Performed By: Anthony Stewart, RVT Charges/Coding Visit Charges Inpatient E&M: 31160 Init Hosp L2
--- NOTE | 2023-02-07 14:55 | CT_ITS ---
EXAM: CT ABDOMEN AND PELVIS WITHOUT INTRAVENOUS CONTRAST CLINICAL INDICATION: anemia TECHNIQUE: Helically acquired images were obtained of the abdomen and pelvis without intravenous contrast. This CT exam was performed using one or more of the following dose reduction techniques: automated exposure control, adjustment of the mA and/or kV according to patient size, and/or use of iterative reconstruction technique. This report was created using [employer] report generation technology. COMPARISON: 07/12/2013 FINDINGS: LOWER THORAX: Unremarkable. Lung bases are clear. No cardiomegaly. No significant pericardial effusion. ABDOMEN: LIVER: Unremarkable. Homogeneous. GALLBLADDER AND BILE DUCTS: There are surgical clips from a cholecystectomy. No intra- or extrahepatic biliary ductal dilation. PANCREAS: Unremarkable. No focal cystic mass. SPLEEN: Unremarkable. Normal size without focal cystic or solid mass. ADRENALS: Unremarkable. No nodules. KIDNEYS AND URETERS: Unremarkable. Normal renal size and position. No hydronephrosis. STOMACH AND BOWEL: Unremarkable. No stomach or bowel distention. No focal inflammatory change. PELVIS: APPENDIX: No evidence of acute appendicitis. BLADDER: Unremarkable. REPRODUCTIVE: Unremarkable as visualized. No mass. ABDOMEN and PELVIS: INTRAPERITONEAL SPACE: Unremarkable. No ascites or other fluid collection. No free air. BONES/JOINTS: Unremarkable. No suspicious lytic or blastic abnormality. SOFT TISSUES: Unremarkable. No discrete abdominal or pelvic wall hernia. VASCULATURE: Unremarkable. Abdominal aorta is non-dilated. LYMPH NODES: Unremarkable. No enlarged lymph nodes. CT/Abdomen/Pelvis without Cont IMPRESSION: No acute findings in the abdomen or pelvis. Electronically Signed: Tomas Kulkarni MD at 16:16 EDT ,
[2023-02-07] MEDS: Bisacodyl 5 MG Tablet 20 MG PO (16:53)
--- NOTE | 2023-02-07 16:58 | CASEMGMT ---
LEONARD VELAZQUEZ DC Planning Assessment: Face to Face with patient for initial transition planning/care coordination assessment.?LEONARD VELAZQUEZ introduced self and role at [facility], pt voices understanding.?Multiple visits to patients room made throughout the day. Pt expressed feeling exhausted and provided permission to complete assessment with her S.O. Manny and her mother at bedside. Care providers, pharmacy,?and demographics verified. ? Admitting Dx: GI Bleed, CVA PCP: Karen Specialists:none Preferred Pharmacy: [facility] Insurance: [facility] A/B, [facility] Prescription Benefit:?undetermined, they typically obtain their medications in [place] and have not had to purchase medications in the [place] Living Will/HPOA: none LNOK: mother [place], S.O. Manny Living Arrangements: Pt and her S.O. reside primarily in [place] until pt had onset of symptoms which prompted them to fly to the [facility] to this area where pt's mother lives. Pt and S.O. are currently staying with pt's mother in her single story home. There are 4 steps to enter. Pt has been independent with all ADLs including self care and household tasks. Transportation: Pt had been driving, pt's S.O. is able to drive if needed DME/HHC/SNF: none ? Plan: TBD. Will continue to monitor the outcome of pt's procedures and therapy evaluations for determination of discharge needs. Vanda Reina RN CM
[2023-02-07] MEDS: Polyethylene Glycol 3350 BOWEL PREP PO (17:25)
[2023-02-07] MEDS: Atorvastatin Calcium 80 MG Tablet PO (22:44)
[2023-02-08] VITALS (15 sets, daily range): BP systolic 97–157; BP diastolic 58–78; PULSE 64–77; RESP 16–18; TEMP 36.1–36.9; O2SAT 95–100; BMI 21.4
[2023-02-08] MEDS: 0.9% Normal Saline 1,000 ML 150 ML IV ×2 (06:05→13:37)
[2023-02-08 06:50] LABS: Absolute Lymphocyte Count 0.72 X10^3/uL (0.83-4.51); Absolute Neutrophil Count 5.7 X10^3/uL (2.0-7.7); Basophil# 0.03 X10^3/uL; Basophil% 0.4 % (0-1); Eosinophil# 0.26 X10^3/uL; Eosinophils% 3.7 % (0-5); Hematocrit 30.3 % (37-47); Hemoglobin 9.7 g/dL (12.0-15.0); Lymphocyte # 0.72 X10^3/ul (0.83-4.51); Lymphocyte % 10.1 % (19-41); Mean Corpuscular Hgb 28.5 pg (27.0-32.0); Mean Corpuscular Volume 89.1 fL (81-99); Mean Platelet Vol. 12.2 fl (6.2-12.0); Monocyte# 0.37 X10^3/uL; Monocyte% 5.2 % (0-10); NRBC Flagged by Analyzer 0 % (0-5); Neutrophil # 5.71 X10^3/uL (2.7-7.7); Neutrophil % 80.2 % (47-70); Platelet Count 339 K/mm3 (150-450); RBC Distribution Width CV 15.4 % (11.6-14.6); RBC Distribution Width SD 49.1 fl (35.1-43.9); White Blood Count 7.1 K/mm3 (4.4-11.0)
--- NOTE | 2023-02-08 07:12 | CON.PCM.CA_ITS ---
Assessment & Plan Assessment/Plan (1) Preop cardiovascular exam: PLAN: In terms of preoperative cardiovascular exam my feeling is that she is quite stable at this time. Her stress test did not demonstrate any evidence of ischemia. Her valve I will recommend that we put her on a beta-yuliana in addition to her high intensity statin. My recommendation will also be to reduce the dose of the amlodipine for her blood pressure. I do not see any contraindications to her undergoing the intended surgery after she is stable from the GI standpoint. (2) Essential hypertension: PLAN: Her blood pressure appears to be under good control at this time I would not recommend that we make any major changes. (3) Hyperlipidemia: PLAN: She will continue with his statin and high intensity levels. We will sign off at this time. Thank you for allowing me to participate in the care of your patient. Please don't hesitate to call if any issues arise. HPI Consult Data Date of Consult: 02/08/23 HPI Narrative HPI Narrative: ZARA FRANCISCO, is a 57 F who presents to the hospital with severe anemia and a GI bleed. She was expected to see me in the office for preoperative cardiac clearance for left carotid endarterectomy. However this was appended by her recent admission. She had previously suffered a cerebrovascular accident a few weeks ago and had been put on anticoagulation. She was left with some expressive aphasia. She however has denied any chest pain or shortness of breath or paroxysmal nocturnal dyspnea or pedal edema and has not had any neck arm or jaw discomfort to suggest angina. She has been compliant with all her medications. As part of her work-up she underwent a pharmacologic myocardial perfusion stress test which apparently demonstrated evidence of the previous inferior infarct with no ischemia noted. She had had previous right coronary stenting in 2010 and a cardiac catheterization in 2011 during which no int ervention was considered. An echocardiogram performed demonstrated preserved left ventricular systolic function with no wall motion abnormalities. During this hospitalization she does not appear to have had any troponin elevation. [facility] Medical History Atherosclerotic heart disease of [place] coronary artery without angina pectoris Encounter for screening for COVID-19 Essential hypertension Expressive aphasia H/O ischemic left MCA stroke History of [place] (myocardial infarction) Hyperlipidemia Home Medications aspirin 81 mg chewable tablet 81 mg PO DAILY@0800 HEALTH MAINTENANCE 05/13/14 [History Last Taken 02/06/23] nitroglycerin 0.4 mg sublingual tablet 0.4 mg sublingual Q5-15M PRN Chest Pain 09/25/19 [History Last Taken Unknown] amlodipine 5 mg tablet 5 mg PO BID BP 01/24/23 [History Last Taken 02/06/23] rivaroxaban 20 mg tablet (Xarelto) 20 mg PO DAILY BLOOD THINNER 01/24/23 [History Last Taken Unknown] atorvastatin 80 mg tablet 80 mg PO QHS CHOLESTEROL 02/06/23 [History Last Taken Unknown] telmisartan 80 mg tablet (Micardis) 80 mg PO DAILY HEART 02/06/23 [History Last Taken Unknown] Allergy/AdvReac Type Severity Reaction Status Date / Time celecoxib [From Celebrex] Allergy Severe Other Verified 01/28/23 10:24 isosorbide mononitrate Allergy Severe Other Verified 01/28/23 10:24 [From Imdur] meloxicam [From Mobic] Allergy Severe Nausea/Vom/ Verified 01/28/23 10:24 Diarrhea Family History Father Hypertension Cancer Mother Hypertension Uncle Diabetes Grandfather Cancer Grandmother Cancer Surgical History H/O: hysterectomy History of cholecystectomy History of coronary artery stent placement (02/17/11) History of excision of lamina of cervical vertebra for decompression of spinal cord History of left heart catheterization Social History Smoking Status: Current every day smoker tobacco type: cigarettes alcohol intake: never substance use type: does not use ROS Constitutional Constitutional: Denies fever(s) or weight loss Eyes Eyes: Reports systems reviewed and no addt'l complaints, except as documented ENT HEENT: Reports systems reviewed and no addt'l complaints, except as documented Cardiovascular Cardiovascular: Denies chest pain at rest, chest pain with activity, dyspnea at rest, dyspnea on exertion, edema, palpitations or paroxysmal nocturnal dyspnea Respiratory/Chest Respiratory/Chest: Denies dyspnea on exertion, productive cough, shortness of breath at rest or shortness of breath with exertion Gastrointestinal Gastrointestinal: Denies change in bowel habits, nausea, vomiting or weight changes Genitourinary Genitourinary: Denies difficulty urinating Musculoskeletal Musculoskeletal: Denies joint stiffness or muscle weakness Integumentary Integumentary: Denies lesions Neurologic Neurologic: Denies dizziness or syncope Psychiatric Psychiatric: Denies anxiety Endocrine Endocrinology: Denies excessive sweating or fatigue Hematologic/Lymphatic Hematologic/Lymphatic: Denies anemia Allergic/Immunologic Allergic/Immunologic: Denies seasonal rhinorrhea Physical Exam Const alert, oriented x3 and no apparent distress General Appearance: cooperative HEENT hearing grossly normal bilaterally Head and Scalp: atraumatic Eyes EOMs intact bilaterally Neck General: normal visual inspection Chest inspection of chest normal and palpation of chest normal Resp normal respiratory effort Auscultation: clear to auscultation bilaterally Cardio regular rate, regular rhythm, S1 normal heart sound and S2 normal heart sound Jugular Venous Distention: JVD GI normal to inspection, nondistended, normoactive bowel sounds Extremity normal capillary refill and no pedal edema Peripheral Pulses: Yes pulses 2+ throughout and femoral pulses present Skin no rashes or lesions noted Neuro oriented x3 and CN's II-XII intact bilaterally Psych Appearance: grossly normal and appropriate Risk Stratification Risk Stratification Applicable: No Objective Data Vital Signs: Vital Signs Temp Pulse Resp BP Pulse Ox O2 Del Method 97 F L 64 16 136/74 H 95 Room Air 02/08/23 06:00 02/08/23 06:00 02/08/23 06:00 02/08/23 06:00 02/08/23 06:00 02/08/23 06:00 Oxygen Delivery Method Room Air Weight: 137 lb 5.568 oz Body Mass Index (BMI) 21.4 Intake & Output: Intake and Output for Last 24 Hours 02/06/23 02/07/23 02/08/23 23:59 23:59 23:59 Intake Total 2235 / 2235 4565.0 / 4565.0 1100 / 1100 Output Total 0 / 0 400 / 400 Balance 2235 / 2235 4165.0 / 4165.0 1100 / 1100 Lab / Micro Data Result Diagrams: 02/08/23 05:50 02/07/23 05:28 Labs: Laboratory Results - last 24 hr 02/06/23 11:01: Diff Path Review Reviewed 02/07/23 07:15: WBC 12.5 H, RBC 3.60 L, Hgb 10.4 L, Hct 31.8 L, MCV 88.3, MCH 28.9, MCHC 32.7, RDW Std Deviation 47.9 H, RDW Coeff of Fidel 15.0 H, Plt Count 324, MPV 12.0, Immature Gran % (Auto) 0.500, Neut % (Auto) 85.1 H, Lymph % (Auto) 8.1 L, [place] % (Auto) 4.5, Eos % (Auto) 1.4, Baso % (Auto) 0.4, Absolute Neuts (auto) 10.7 H, Absolute Lymphs (auto) 1.01, Nucleated RBC % 0 02/07/23 07:15: PT 15.3 H, INR 1.2, APTT 28.5 02/07/23 10:00: Hgb 9.9 L, Hct 30.2 L 02/08/23 05:50: WBC 7.1, RBC 3.40 L, Hgb 9.7 L, Hct 30.3 L, MCV 89.1, MCH 28.5, MCHC 32.0, RDW Std Deviation 49.1 H, RDW Coeff of Fidel 15.4 H, Plt Count 339, MPV 12.2 H, Immature Gran % (Auto) 0.400, Neut % (Auto) 80.2 H, Lymph % (Auto) 10.1 L, [place] % (Auto) 5.2, Eos % (Auto) 3.7, Baso % (Auto) 0.4, Absolute Neuts (auto) 5.7, Absolute Lymphs (auto) 0.72 L, Nucleated RBC % 0 Cardiology Labs/Tests 02/07/23 07:15: WBC 12.5 H, RBC 3.60 L, Hgb 10.4 L, Hct 31.8 L, MCV 88.3, MCH 28.9, MCHC 32.7, Plt Count 324, MPV 12.0, Immature Gran % (Auto) 0.500, Neut % (Auto) 85.1 H, Lymph % (Auto) 8.1 L, [place] % (Auto) 4.5, Eos % (Auto) 1.4, Baso % (Auto) 0.4, Absolute Neuts (auto) 10.7 H, Nucleated RBC % 0 02/07/23 07:15: PT 15.3 H, INR 1.2, APTT 28.5 02/07/23 10:00: Hgb 9.9 L, Hct 30.2 L 02/08/23 05:50: WBC 7.1, RBC 3.40 L, Hgb 9.7 L, Hct 30.3 L, MCV 89.1, MCH 28.5, MCHC 32.0, Plt Count 339, MPV 12.2 H, Immature Gran % (Auto) 0.400, Neut % (Au to) 80.2 H, Lymph % (Auto) 10.1 L, [place] % (Auto) 5.2, Eos % (Auto) 3.7, Baso % (Auto) 0.4, Absolute Neuts (auto) 5.7, Nucleated RBC % 0 Rhythm: EKG: ECHO: Stress Test: Cardiac Cath: PCI: CT Surgery: Holter monitor: EPS: PPM: CXR: Chest CT Scan: Radiography Diagnostic Testing: Radiology Impression Echocardiogram 02/06/23 14:38 Interpretation Summary The estimated ejection fraction is 70 %. Trivial mitral valve insufficiency. Ordering Physician: Angelique Dejesus Referring Physician: Arcenio Jones Performed By: Manisha Brown, YUDY, RVT Carotid Duplex 02/06/23 16:21 Interpretation Summary Moderate (50-69%) stenosis right extracranial internal carotid. Severe (>70%) stenosis left extracranial internal carotid. Patent and antegrade vertebrals bilaterally. Ordering Physician: Angelique Dejesus Performed By: Anthony Stewart, RVT Abdomen/Pelvis CT 02/07/23 14:55 IMPRESSION: No acute findings in the abdomen or pelvis. Electronically Signed: Tomas Kulkarni MD at 16:16 EDT ,
[2023-02-08 07:24] LABS: ALB/GLOB Ratio 0.8 RATIO (0.9-2.4); AST(SGOT) 13 U/L (15-37); Alanine Aminotransfer ALT/SGPT 21 U/L (13-56); Albumin, Serum 2.8 g/dL (3.2-5.0); Alkaline Phosphatase 121 U/L (45-117); Anion Gap 10 (5-15); BUN 4 mg/dL (7-18); Calcium,Total 8.9 mg/dL (8.5-10.1); Chloride 111 mmol/L (98-107); EST Glomerular Filtration Rate 135 mL/min (>60); Est Glom Filt Rate - Afr Amer 163 mL/min (>60); Estimated Creatinine Clearance 120.72 ml/min; Globulin 3.4 g/dL (2.2-4.2); Glucose 124 mg/dL (74-106); Phosphorus 2.9 mg/dL (2.5-4.9); Potassium 3.1 mmol/L (3.5-5.1); Protein, Total 6.2 g/dL (6.4-8.2); Sodium Level 144 mmol/L (136-145)
[2023-02-08] MEDS: Potassium Chloride Oral Soln 20 MEQ/15 ML UDC 40 MEQ PO (09:01)
--- NOTE | 2023-02-08 12:15 | NURSING ---
This RN is taking over care at this time.
--- NOTE | 2023-02-08 14:02 | PCM.PN.HOSP ---
Reason for Visit Reason for Visit: Weakness/fall Subjective Subjective Patient is frustrated this morning. There is some concern that she sat in stool overnight. It has been addressed with nursing quality control microbiology supervisor and they will look into this further. I did indicate to them that she needs to be checked on if she cannot call out because she has expressive aphasia. Physical therapy was at the bedside at the time of my evaluation and she refused to get up with them at this time. She did indicate she would get up out of bed after her colonoscopy which is to be done at 2 PM. We discussed the importance of her participating with therapy services and I indicated that if she does not start moving she is going to continue to get weaker and it could potentially lead to premature . EGD yesterday was unremarkable for any signs of acute cause of blood loss. CT of her abdomen pelvis did not show any explanation for blood loss either. Hemoglobin is stable today but her Xarelto is on hold at this time. I explained to both the patient and the that we do need to find a definitive reason for her hemoglobin drop prior to having surgery as she will need to be anticoagulated with heparin for surgery and then again postoperatively after discharge. Objective Data Objective Data Vital Signs: Vital Signs Temp Pulse Resp BP Pulse Ox O2 Del Method 98.0 F 66 16 149/75 H 98 Room Air 02/08/23 13:31 02/08/23 13:31 02/08/23 13:31 02/08/23 13:31 02/08/23 13:31 02/08/23 13:31 Oxygen Delivery Method Room Air Weight: 62.3 kg Body Mass Index (BMI) 21.4 Intake & Output: Intake and Output for Last 24 Hours 02/06/23 02/07/23 02/08/23 23:59 23:59 23:59 Intake Total 2235 / 2235 4565.0 / 4565.0 2099 / 2099 Output Total 0 / 0 400 / 400 Balance 2235 / 2235 4165.0 / 4165.0 2099 / 2099 Lab / Micro Data Result Diagrams: 02/08/23 05:50 02/08/23 05:50 Labs: Laboratory Results - last 24 hr 02/08/23 05:50: WBC 7.1, RBC 3.40 L, Hgb 9.7 L, Hct 30.3 L, MCV 89.1, MCH 28.5, MCHC 32.0, RDW Std Deviation 49.1 H, RDW Coeff of Fidel 15.4 H, Plt Count 339, MPV 12.2 H, Immature Gran % (Auto) 0.400, Neut % (Auto) 80.2 H, Lymph % (Auto) 10.1 L, [place] % (Auto) 5.2, Eos % (Auto) 3.7, Baso % (Auto) 0.4, Absolute Neuts (auto) 5.7, Absolute Lymphs (auto) 0.72 L, Nucleated RBC % 0 02/08/23 05:50: Sodium 144, Potassium 3.1 L, Chloride 111 H, Carbon Dioxide 23.0, Anion Gap 10, BUN 4 L, Creatinine 0.50 L, Estim Creat Clear Calc 120.72, Est GFR (MDRD) Af Amer 163, Est GFR (MDRD) Non-Af 135, BUN/Creatinine Ratio 8.0 L, Glucose 124 H, Calcium 8.9, Phosphorus 2.9, Magnesium 2.0, Total Bilirubin 0.60, AST 13 L, ALT 21, Alkaline Phosphatase 121 H, Total Protein 6.2 L, Albumin 2.8 L, Globulin 3.4, Albumin/Globulin Ratio 0.8 L Micro: Microbiology 02/06/23 12:00 Stool Stool Occult Blood (ELSY) - Final Occult Blood Positive Radiography Diagnostic Testing: Radiology Impression Abdomen/Pelvis CT 02/07/23 14:55 IMPRESSION: No acute findings in the abdomen or pelvis. Electronically Signed: Tomas Kulkarni MD at 16:16 EDT , Physical Exam Const alert, no apparent distress and well nourished Constitutional Narrative: Middle-aged, white female, sitting up in bed, appears older than stated age, nontoxic, at bedside HEENT head/scalp atraumatic and moist oral mucous membranes HEENT Narrative: Dentures in place, Mallampati 2, no thrush Head and Scalp: normocephalic Resp normal respiratory effort, no retractions, no use of accessory muscles and clear to auscultation bilaterally Resp Narrative: Diffusely diminished but clear Auscultation: Negative for rales, rhonchi or wheezes Cardio regular rate, regular rhythm, S1 normal heart sound, S2 normal heart sound, no murmurs, no rub, no gallops and no clicks GI normal to inspection, nondistended, normoactive bowel sounds, soft to palpation and non-tender Extremity no clubbing, cyanosis or edema Extremity Narrative: Pedal pulses are 2+ Neuro CN's II-XII intact bilaterally, No no focal motor deficits and no sensory deficits noted Neuro Narrative: Weakness on right upper and lower extremity, able to hold against gravity with slow drift towards the bed but leg and arm do not hit the bed, patient follows commands well but seems to have fairly significant expressive aphasia Speech: Negative for speech normal Psych Psych Narrative: Affect is very flat and patient seem depressed and very angry at this time Assessment & Plan Assessment/Plan (1) GI bleed: (2) Anemia: (3) Right sided weakness: (4) Fall: (5) Carotid artery stenosis: (6) Leukocytosis: (7) Hypokalemia: (8) Acute stroke due to ischemia: PLAN: Plan Acute GI bleed -Hemoglobin on 01/24/2023 was 12.7--> down to 5 on presentation -Stool was guaiac positive -Continue to hold Xarelto -Continue to hold aspirin -Discontinue Protonix with unremarkable EGD -N.p.o. for colonoscopy today -EGD done on 02/07/2023 showed normal esophagus, bile gastritis that was biopsied, 2 nonbleeding 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 that were treated with monopolar probe and colonoscopy was recommended Acute anemia -Patient status post 3 units packed red blood cells on 02/06/2023 -Hemoglobin 5 on presentation -Hemoglobin appears to have stabilized as it was 9.7 this morning -EGD and unremarkable for explanation of that significant of a hemoglobin drop -CT of the abdomen pelvis unremarkable -Colonoscopy pending for today -Trend hemoglobin with CBC in the a.m. Hypokalemia -repeat p.o. to potassium administration -Recheck potassium in the morning -Mag levels within normal limits Leukocytosis -Resolved Acute stroke -Currently with new right-sided weakness--> improved since admission with transfusion--> suspect predominantly elicited by severe anemia -MRI shows several small foci of focal areas of acute ischemic change in the watershed region of the frontal and parietal lobes and a subacute stroke in the left frontal lobe -Neurology consult performed and agreed with holding Xarelto and antiplatelet therapy, agreed with acute transfusion, and recommended management of severe carotid artery stenosis with surgical intervention as soon as medically possible -Continue stroke protocol -Echo with bubble study pending as her initial work-up with previous stroke was done in [place] -Start aspirin as soon as possible -Continue high-dose statin -PT/OT consultation -Speech consultation -Antihypertensives on hold to allow for some permissive hypertension given acute stroke--> restart accordingly -Outpatient neurology follow-up at discharge Recent stroke left MCA -Patient with acute stroke approximately 1 month ago -Critical left internal carotid artery stenosis noted at that time -Management as above -Patient with resultant expressive aphasia Bilateral critical artery stenosis -Vascular is following -Plan is for carotid endarterectomy on the left side Saturday -Need to identify cause for acute anemia prior to this is patient will need full dose anticoagulation with heparin for surgery and ongoing antiplatelet therapy following -Patient has been cleared from a cardiology standpoint for surgery CAD/ischemic cardiomyopathy/HTN/HPL -Aspirin and Xarelto on hold until GI bleed can be identified -Start metoprolol 25 mg p.o. twice daily per Dr. Hahn's recommendation for the initiation of a beta-yuliana -We will continue to monitor blood pressure after initiating beta-yuliana and will initiate Chay this as soon as possible/appropriate -Continue high intensity dose statin -Patient with recent stress test that showed fixed perfusion defect related to previous infarct--> done 01/31/2023 -Echocardiogram done here showed an EF of 70% with trivial mitral valve insufficiency and a negative bubble study Tobacco abuse -recommend cessation DVT prophylaxis -SCDs -Restart Xarelto once okay with gastroenterology CODE STATUS -Full code Charges/Coding Visit Charges Inpatient E&M: 61023 Subs Hosp L2
[2023-02-08] MEDS: 0.9% Normal Saline 1,000 ML 15 ML IV (17:05)
--- NOTE | 2023-02-08 18:05 | CASEMGMT ---
Social Work PCU Attempted to meet with the patient for PHQ-9 completion due to stroke diagnosis. However patient off of the unit when the stroke verse writer arrived to the room. Social work will attempt to meet with patient at a later time for completion. No other social work services have been indicated at this time. Plan: Attempt to meet with patient again for PHQ-9 completion. -DAT Huang, PEN RIDER
--- NOTE | 2023-02-08 18:17 | OP.COLON_ITS ---
Patient Name: Norma Waldron Procedure Date: 02/08/2023 5:43 PM Date of : 1965 Age: 57 Procedure: Colonoscopy Indications: Iron deficiency anemia Providers: Fran Cowan DO Medicines: Monitored Anesthesia Care Patient Profile: This is a 57 year old female. Refer to note in patient chart for documentation of history and physical. Last Colonoscopy: date unknown. Unable to locate last colonoscopy report. Complications: No immediate complications. Procedure: Pre-Anesthesia Assessment: - Prior to the procedure, a History and Physical was performed, and patient medications and allergies were reviewed. The patient is competent. The risks and benefits of the procedure and the sedation options and risks were discussed with the patient. All questions were answered and informed consent was obtained. Patient identification and proposed procedure were verified by the physician. Mental Status Examination: normal. Prophylactic Antibiotics: The patient does not require prophylactic antibiotics. Prior Anticoagulants: The patient has taken no previous anticoagulant or antiplatelet agents. ASA Grade Assessment: II - A patient with mild systemic disease. After reviewing the risks and benefits, the patient was deemed in satisfactory condition to undergo the procedure. The anesthesia plan was to use monitored anesthesia care (MAC). Immediately prior to administration of medications, the patient was re-assessed for adequacy to receive sedatives. The heart rate, respiratory rate, oxygen saturations, blood pressure, adequacy of pulmonary ventilation, and response to care were monitored throughout the procedure. The physical status of the patient was re-assessed after the procedure. After I obtained informed consent, the scope was passed under direct vision. Throughout the procedure, the patient's blood pressure, pulse, and oxygen saturations were monitored continuously. The Colonoscope was introduced through the anus and advanced to the cecum, identified by appendiceal orifice and ileocecal valve. The colonoscopy was performed with ease. The patient tolerated the procedure well. The quality of the bowel preparation was good. Scope In: 5:52:55 PM Scope Withdrawal Time 0 hours 9 minutes 23 seconds Scope Out: 6:04:58 PM Total Procedure Duration Time 0 hours 12 minutes 3 seconds Findings: The perianal and digital rectal examinations were normal. A few small-mouthed diverticula were found in the recto-sigmoid colon and sigmoid colon. Impression: - Diverticulosis in the recto-sigmoid colon and in the sigmoid colon. - No specimens collected. Recommendation: - Resume previous diet. - Continue present medications. - Repeat colonoscopy in 10 years for screening purposes. Procedure Code(s): --- Professional --- 39153, Colonoscopy, flexible; diagnostic, including collection of specimen(s) by brushing or washing, when performed (separate procedure) CPT copyright 2017 [employer]. All rights reserved. The codes documented in this report are preliminary and upon materials buyer review may be revised to meet current compliance requirements. Fran Cowan DO 02/08/2023 6:16:54 PM This report has been signed electronically. Number of Addenda: 0 Note Initiated On: 02/08/2023 5:43 PM
--- NOTE | 2023-02-08 18:18 | OP.CCLET_ITS ---
02/08/2023 Arcenio Jones MD Re : Colonoscopy procedure for Norma Waldron Dear Dr. Jones This procedure was performed on Wednesday, February 08, 2023. My impressions and recommendations are as follows: Impressions : - Diverticulosis in the recto-sigmoid colon and in the sigmoid colon. - No specimens collected. Recommendations : - Resume previous diet. - Continue present medications. - Repeat colonoscopy in 10 years for screening purposes. My findings are described in the full procedure note, which is enclosed. If I can be of further assistance, please feel free to contact me at . Sincerely, Fran Cowan, 02/08/2023 6:16:54 PM This report has been signed electronically.
--- NOTE | 2023-02-08 20:15 | NURSING ---
This RN went into pt room to offer to get her out of bed to walk around or at least go into the bathroom before giving meds. Patient refused to get up at this time. When this RN asked if she was too tired she nodded yes.
[2023-02-08] MEDS: Metoprolol Tartrate 25 MG Tablet PO (20:19)
[2023-02-08] MEDS: Atorvastatin Calcium 80 MG Tablet PO (20:20)
[2023-02-09] VITALS (10 sets, daily range): BP systolic 126–156; BP diastolic 49–75; PULSE 52–62; RESP 16–18; TEMP 36.3–37; O2SAT 93–97; BMI 21.4
--- NOTE | 2023-02-09 04:30 | NURSING ---
This RN took pt vitals, and offered to assist to the RR for a chance to get up out of bed. The pt denies the need to go right now. Appears to be agreeable to calling out the next time she needs to go, so someone can assist her in walking.
[2023-02-09] MEDS: 0.9% Normal Saline 1,000 ML 70 ML IV (05:09)
--- NOTE | 2023-02-09 08:00 | NURSING ---
Pt with increased NIH score at shift change. Severe right arm weakness noted and right leg is flaccid. MD made aware. See NIH charting
[2023-02-09 08:28] LABS: Absolute Lymphocyte Count 0.72 X10^3/uL (0.83-4.51); Absolute Neutrophil Count 4.8 X10^3/uL (2.0-7.7); Basophil# 0.03 X10^3/uL; Basophil% 0.5 % (0-1); Eosinophil# 0.21 X10^3/uL; Eosinophils% 3.4 % (0-5); Hematocrit 29.4 % (37-47); Hemoglobin 9.5 g/dL (12.0-15.0); Lymphocyte # 0.72 X10^3/ul (0.83-4.51); Lymphocyte % 11.5 % (19-41); Mean Corp Hgb Conc 32.3 g/dL (32-36); Mean Corpuscular Hgb 28.6 pg (27.0-32.0); Mean Corpuscular Volume 88.6 fL (81-99); Mean Platelet Vol. 11.2 fl (6.2-12.0); Monocyte# 0.43 X10^3/uL; Monocyte% 6.9 % (0-10); NRBC Flagged by Analyzer 0 % (0-5); Neutrophil # 4.84 X10^3/uL (2.7-7.7); Neutrophil % 77.5 % (47-70); Platelet Count 393 K/mm3 (150-450); RBC Distribution Width CV 15.3 % (11.6-14.6); RBC Distribution Width SD 48.2 fl (35.1-43.9); Red Blood Count 3.32 M/mm3 (4.2-5.4); White Blood Count 6.2 K/mm3 (4.4-11.0)
[2023-02-09 08:50] LABS: Anion Gap 8 (5-15); BUN 7 mg/dL (7-18); BUN/Creat Ratio 12.5 RATIO (10-20); Calcium,Total 8.5 mg/dL (8.5-10.1); Chloride 112 mmol/L (98-107); Creatinine, Serum 0.56 mg/dL (0.55-1.02); EST Glomerular Filtration Rate 119 mL/min (>60); Est Glom Filt Rate - Afr Amer 144 mL/min (>60); Estimated Creatinine Clearance 107.78 ml/min; Glucose 113 mg/dL (74-106); Potassium 3.2 mmol/L (3.5-5.1); Sodium Level 145 mmol/L (136-145)
--- NOTE | 2023-02-09 08:50 | CT_ITS ---
EXAM: CT HEAD WITHOUT INTRAVENOUS CONTRAST CLINICAL INDICATION: increased stroke symptoms TECHNIQUE: Multiple axial images were obtained of the head without intravenous contrast. This CT exam was performed using one or more of the following dose reduction techniques: automated exposure control, adjustment of the mA and/or kV according to patient size, and/or use of iterative reconstruction technique. This report was created using [employer] report generation technology. COMPARISON: MRI of the brain 02/06/2023, CT Head dated 02/06/2023 FINDINGS: BRAIN AND EXTRA-AXIAL SPACES: The left frontoparietal subacute infarct again noted. Interval appearance of 9 mm hypodense area within the left centrum semiovale corresponding to the more acute ischemic change noted on recent MRI. A similar but more subtle area of diminished density noted anterior to the left frontal horn. No acute hemorrhage or mass effect. Posterior fossa structures are unremarkable. Ventricles are appropriate for age. No hydrocephalus. Basal cisterns are patent. BONES/JOINTS: No suspicious lytic or blastic abnormality. SINUSES: No acute sinusitis. MASTOID AIR CELLS: Normal. Clear. ORBITS: Visualized globes, extraocular muscles, optic nerves and retrobulbar fat appear unremarkable. CT/Brain/Head without Contrast IMPRESSION: Subacute and acute ischemic changes as previously noted on MRI brain. No hemorrhage or mass effect. Electronically Signed: Sukhwinder Hyatt MD at 10:36 EDT ,
--- NOTE | 2023-02-09 09:06 | CT_ITS ---
INDICATION: stroke/ R stenosis EXAMINATION: CTA HEAD - CTA Head and Neck W/ Contrast Injection (and W/O Contrast Images if performed) TECHNIQUE: [place]/head CT angiogram protocol was performed following IV contrast. Routine carotid CT angiogram protocol was performed without and with IV contrast. NASCET criteria using the distal ICAs for comparison were used for evaluation of stenoses. 3D reconstructions were reviewed of the CT angiogram head and neck. A radiation dose optimization technique was used for this scan. IV Contrast dosage and agent: 100 cc [id number] COMPARISON: CTA head and neck 02/06/2023 FINDINGS: --Anterior cerebral circulation: ACAs: No significant stenosis at the visualized segments. ACOM: Present. MCAs: Interval occlusion of the left M1 segment. --Posterior cerebral circulation: PCOMs: Present bilaterally. field counsel: No significant stenosis at the visualized segments. BASILAR ARTERY: No significant stenosis. --Carotid and vertebral circulation: AORTIC ARCH AND BRANCHES: Normal anatomy, patent. RIGHT CCA: No occlusion, significant stenosis or dissection. RIGHT ICA: No occlusion, significant stenosis or dissection. LEFT CCA: No occlusion, significant stenosis or dissection. LEFT ICA: There is now complete occlusion of the cervical portion of the left ICA. The cavernous portion of the left ICA is reconstituted via collaterals RIGHT VERTEBRAL ARTERY: No occlusion, significant stenosis or dissection. Dominant vessel extending to the basilar artery LEFT VERTEBRAL ARTERY: Not evaluated due to the small size and high density contrast within the venous structures of the left side of the neck NECK SOFT TISSUES: Unremarkable. LUNG APICES: Clear. BONES: Unremarkable. CT/CTA Head AND Neck W/ Contrast IMPRESSION: Interval development of complete occlusion of the cervical portion of the left internal carotid artery. Interval occlusion of the left M1 segment of the MCA. Electronically Signed: Sukhwinder Hyatt MD at 11:27 EDT ,
--- NOTE | 2023-02-09 09:38 | PN.SURG_ITS ---
Subjective Subjective Patient was seen this morning. Her partner is at bedside. Unfortunately, at 8 am nursing noted the patient's right side to be completely flaccid. Patient tells me that when she first woke up her right extremities felt normal and her right side was noted to be normal by nursing at 4 am. Her partner says he arrived right around 8 am and patient had told him she had a headache and felt dizzy, he noticed the right-sided weakness at the same time as nursing. Her hemoglobin is stable this morning at 9.5. GI performed colonoscopy yesterday which was unrevealing of a source of blood loss. EGD and CT abd had also been negative for source of bleeding. No noted hematuria, visible blood in the stool, epistaxis, abdominal pain by patient. Objective Data Objective Data Vital Signs: Vital Signs Temp Pulse Resp BP Pulse Ox O2 Del Method 98.6 F 60 16 150/72 H 97 Room Air 02/09/23 08:08 02/09/23 08:08 02/09/23 08:08 02/09/23 08:08 02/09/23 08:33 02/09/23 08:33 Oxygen Delivery Method Room Air Weight: 137 lb 5.568 oz Body Mass Index (BMI) 21.4 Intake & Output: Intake and Output for Last 24 Hours 02/07/23 02/08/23 02/09/23 23:59 23:59 23:59 Intake Total 4565.0 / 4565.0 3180.34 / 3180.34 673.83 / 673.83 Output Total 400 / 400 Balance 4165.0 / 4165.0 3180.34 / 3180.34 673.83 / 673.83 Lab / Micro Data Result Diagrams: 02/09/23 05:55 02/09/23 07:59 Labs: Laboratory Results - last 24 hr 02/09/23 05:55: WBC 6.2, RBC 3.32 L, Hgb 9.5 L, Hct 29.4 L, MCV 88.6, MCH 28.6, MCHC 32.3, RDW Std Deviation 48.2 H, RDW Coeff of Fidel 15.3 H, Plt Count 393, MPV 11.2, Immature Gran % (Auto) 0.200, Neut % (Auto) 77.5 H, Lymph % (Auto) 11.5 L, [place] % (Auto) 6.9, Eos % (Auto) 3.4, Baso % (Auto) 0.5, Absolute Neuts (auto) 4.8, Absolute Lymphs (auto) 0.72 L, Nucleated RBC % 0 02/09/23 07:59: Sodium 145, Potassium 3.2 L, Chloride 112 H, Carbon Dioxide 25.0, Anion Gap 8, BUN 7, Creatinine 0.56, Estim Creat Clear Calc 107.78, Est GFR (MDRD) Af Amer 144, Est GFR (MDRD) Non-Af 119, BUN/Creatinine Ratio 12.5, Glucose 113 H, Calcium 8.5 Micro: Microbiology 02/06/23 12:00 Stool Stool Occult Blood (ELSY) - Final Occult Blood Positive Physical Exam Const alert, oriented x3 and no apparent distress General Appearance: cooperative HEENT normocephalic, head/scalp atraumatic and external ears normal Nose: external nose normal Eyes EOMs intact bilaterally General Eye: normal appearance of both eyes Neck General: normal visual inspection and trachea midline Resp normal respiratory effort, normal air movement, no retractions and no use of accessory muscles Effort and Inspection: symmetric chest movement; Negative for labored, stridor or audible wheezes Cardio regular rate and regular rhythm Peripheral Pulses: brachial pulses present and radial pulses present Extremity normal to inspection and no clubbing, cyanosis or edema Peripheral Pulses: Yes pulses 2+ throughout Neuro oriented x3 Neuro Narrative: RLE and RUE flaccid, 0/5 strength. LLE and LUE strength intact. Slight right facial droop. Expressive aphasia. Psych mental status grossly normal, thought process normal and cooperative Assessment & Plan Assessment/Plan (1) Carotid artery stenosis: PLAN: Plan Patient with new-onset right-sided hemiparesis. CT scan this morning revealed left carotid artery now completely occluded as the cause of these symptoms. Anticoagulant and antiplatelet have been held secondary to her recent significant bleeding in which her hgb dropped from 12.7 to 5.0 in the span of 2 weeks requiring transfusion of 3 units PRBC and still with unknown source. Prior to CT results, transfer to tertiary care facility had been considered. Unfortunately, with fully occluded left carotid artery there are no surgical options in which benefit would outweigh risk. Her history of recent CVA <4 weeks ago and significant bleeding are absolute contraindications to lytic therapy. At this point, the best course of action is to medically manage which can be done here at [facility]. Unfortunately, no way to predict how much function, if any, may be regained. Rehab with PT/OT/ST will be very important in her recovery and can also be attained here in [place]. Do not think any specific benefit to be gained by transfer but the decision is ultimately up to the patient. All of the above was discussed at length with patient, her partner, myself, and Dr. Jacobs (via phone). Patient and partner acknowledged understanding and had the opportunity for all questions and concerns to be addressed. They have decide d to remain in [place] for her continued care versus transferring to tertiary care at this time. Hgb is stable this morning. Would recommend re-starting ASA daily with close monitoring of hgb to ensure no bleeding complications, especially as source of initial significant bleed remains uncertain. Continue to avoid hypotension/dehydration. Will continue to follow.
[2023-02-09] MEDS: Metoprolol Tartrate 25 MG Tablet PO (11:36)
[2023-02-09] MEDS: Aspirin 325 MG Tablet PO (11:39)
--- NOTE | 2023-02-09 13:17 | PCM.PN.HOSP ---
Reason for Visit Reason for Visit: Right-sided weakness Subjective Subjective I was called to the bedside early this morning as the patient had developed worsening right upper and lower extremity weakness. Upon my arrival she was noted to have dense hemiparesis. NIH had gone from a 4 when last assessed to a 10. She remained stable with regards to her expressive aphasia. Significant other is at the bedside. We discussed the results of the colonoscopy and EGD being unremarkable. Hemoglobin is stable and blood pressures are in the 150s systolic. Patient has only a mild headache at this time. Objective Data Objective Data Vital Signs: Vital Signs Temp Pulse Resp BP Pulse Ox O2 Del Method 97.8 F 61 16 156/49 H 94 Room Air 02/09/23 11:41 02/09/23 11:41 02/09/23 11:41 02/09/23 11:41 02/09/23 11:41 02/09/23 11:41 Oxygen Delivery Method Room Air Weight: 62.3 kg Body Mass Index (BMI) 21.4 Intake & Output: Intake and Output for Last 24 Hours 02/07/23 02/08/23 02/09/23 23:59 23:59 23:59 Intake Total 4565.0 / 4565.0 3180.34 / 3180.34 913.83 / 913.83 Output Total 400 / 400 Balance 4165.0 / 4165.0 3180.34 / 3180.34 913.83 / 913.83 Lab / Micro Data Result Diagrams: 02/09/23 05:55 02/09/23 07:59 Labs: Laboratory Results - last 24 hr 02/09/23 05:55: WBC 6.2, RBC 3.32 L, Hgb 9.5 L, Hct 29.4 L, MCV 88.6, MCH 28.6, MCHC 32.3, RDW Std Deviation 48.2 H, RDW Coeff of Fidel 15.3 H, Plt Count 393, MPV 11.2, Immature Gran % (Auto) 0.200, Neut % (Auto) 77.5 H, Lymph % (Auto) 11.5 L, [place] % (Auto) 6.9, Eos % (Auto) 3.4, Baso % (Auto) 0.5, Absolute Neuts (auto) 4.8, Absolute Lymphs (auto) 0.72 L, Nucleated RBC % 0 02/09/23 07:59: Sodium 145, Potassium 3.2 L, Chloride 112 H, Carbon Dioxide 25.0, Anion Gap 8, BUN 7, Creatinine 0.56, Estim Creat Clear Calc 107.78, Est GFR (MDRD) Af Amer 144, Est GFR (MDRD) Non-Af 119, BUN/Creatinine Ratio 12.5, Glucose 113 H, Calcium 8.5 Micro: Microbiology 02/06/23 12:00 Stool Stool Occult Blood (ELSY) - Final Occult Blood Positive Radiography Diagnostic Testing: Radiology Impression Brain CT 02/09/23 08:50 IMPRESSION: Subacute and acute ischemic changes as previously noted on MRI brain. No hemorrhage or mass effect. Electronically Signed: Sukhwinder Hyatt MD at 10:36 EDT , Head/Neck CTA 02/09/23 09:06 IMPRESSION: Interval development of complete occlusion of the cervical portion of the left internal carotid artery. Interval occlusion of the left M1 segment of the MCA. Electronically Signed: Sukhwinder Hyatt MD at 11:27 EDT , Physical Exam Const alert, no apparent distress and well nourished Constitutional Narrative: Middle-aged, white female, sitting up in bed, appears older than stated age, nontoxic, at bedside HEENT head/scalp atraumatic and moist oral mucous membranes Eyes PERRL and EOMs intact bilaterally; Negative for conjunctivae normal Eyes Narrative: Pale conjunctiva bilaterally, no scleral icterus Neck no lymphadenopathy and supple Neck Narrative: Trachea midline Resp normal respiratory effort, no retractions, no use of accessory muscles and clear to auscultation bilaterally Resp Narrative: Diffusely diminished but clear Auscultation: Negative for rales, rhonchi or wheezes Cardio regular rate, regular rhythm, S1 normal heart sound, S2 normal heart sound, no murmurs, no rub, no gallops and no clicks GI normal to inspection, nondistended, normoactive bowel sounds, soft to palpation and non-tender Extremity no clubbing, cyanosis or edema Extremity Narrative: Pedal pulses are 2+ Skin skin turgor normal, no jaundice, no petechiae and no mottling Skin Narrative: Vascular appearing wound on the distal aspect of right great toe and on medial malleolus posteriorly on the right lower extremity Neuro CN's II-XII intact bilaterally, No no focal motor deficits and no sensory deficits noted Neuro Narrative: Orientation is to call to assess due to expressive aphasia however this seems to be intact based on interaction, complete flaccidity of the right and upper lower extremity, patient continues to follow commands however remains with expressive aphasia no cranial nerve abnormalities noted Speech: Negative for speech normal Psych Psych Narrative: Affect is very flat and patient seem depressed and very angry at this time-appropriately so with given situation Assessment & Plan Assessment/Plan (1) GI bleed: (2) Anemia: (3) Right sided weakness: (4) Fall: (5) Carotid artery stenosis: (6) Leukocytosis: (7) Hypokalemia: (8) Acute stroke due to ischemia: PLAN: Plan Acute GI bleed -Hemoglobin on 01/24/2023 was 12.7--> down to 5 on presentation--> now stabilized in the 9-10 range -Stool was guaiac positive -Continue to hold Xarelto indefinitely -EGD done on 02/07/2023 showed normal esophagus, bile gastritis that was biopsied, 2 nonbleeding 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 that were treated with monopolar probe and colonoscopy was recommended -Colonoscopy showed diverticulosis in the rectosigmoid colon and sigmoid colon with no polyps or other abnormalities and no signs of bleeding -Discussed case with GI and okay to restart aspirin -Start cardiac diet Acute anemia -Patient status post 3 units packed red blood cells on 02/06/2023 -Hemoglobin 5 on presentation--> Xarelto and aspirin held on the recommendation of neurology -Hemoglobin has stabilized since transfusion has been between 9 and 10 -EGD and unremarkable for explanation of that significant of a hemoglobin drop -Colonoscopy unremarkable to explain bleeding -We will need outpatient small capsule endoscopy after discharge -CT of the abdomen pelvis unremarkable -Trend hemoglobin with CBC in the a.m. Acute MCA stroke -Currently with new right-sided weakness--> worsened this morning with now dense hemiparesis and completely occluded left internal carotid artery -Globin is stable and systolic blood pressure was adequate at 150 -MRI done on admission several small foci of focal areas of acute ischemic change in the watershed region of the frontal and parietal lobes and a subacute stroke in the left frontal lobe -CT done today showed subacute and acute ischemic changes consistent with previous MRI and CTA of the head and neck demonstrated interval development of complete occlusion of the cervical portion of the left internal carotid artery as well as interval occlusion of the left M1 segment of the MCA -I discussed the case with [facility] neurology and she is not a candidate for thrombolytics or thrombectomy given her recent history -Continue stroke protocol -Echocardiogram done here showed an EF of 70% with trivial mitral valve insufficiency and a negative bubble study -With acute changes today patient was loaded with aspirin 325 mg and will start daily 81 mg aspirin tomorrow -Continue high-dose statin -PT/OT following -Speech following -Outpatient neurology follow-up at discharge -Would recommend acute rehab at discharge -We will need event monitor at the time of discharge -Discussed case with vascular surgery and would hold off with Plavix at this time Recent stroke left MCA -Patient with acute stroke approximately 1 month ago -Critical left internal carotid artery stenosis noted at that time -Management as above -Patient with resultant expressive aphasia Left critical artery stenosis/right carotid artery stenosis-moderate -Unfortunately the patient has completely occluded her left internal carotid artery and at this point is no longer a surgical candidate -Case was discussed by vascular surgery with the patient and family and they have elected to stay here -Vascular surgery will continue to follow as patient has suspected bilateral lower extremity vascular disease and right internal carotid artery stenosis that is 50 to 69% in severity at this time and will need followed as an outpatient Hypokalemia -Repeat p.o. potassium administration again today as potassium is still low -Recheck potassium in the morning -Mag levels within normal limits on 02/08/2023 CAD/ischemic cardiomyopathy/HTN/HPL -Restart for an 81 mg tomorrow -Continue metoprolol 25 mg p.o. twice daily per Dr. Hahn's recommendation for the initiation of a beta-yuliana -Start losartan 25 mg daily as blood pressures are elevated--> patient takes Micardis 80 mg daily at home -Continue high intensity dose statin -Patient with recent stress test that showed fixed perfusion defect related to previous infarct--> done 01/31/2023 -Echocardiogram done here showed an EF of 70% with trivial mitral valve insufficiency and a negative bubble study Tobacco abuse -recommend cessation DVT prophylaxis -SCDs -Start subcu Lovenox 40 mg daily CODE STATUS -Full code Disposition: I had initially discussed the case with Dr. Jacobs this morning as colonoscopy and EGD were negative for identifiable bleed with regards to the plan for ongoing surgery on Saturday. He initially stated that his intent was still to perform her endarterectomy on Saturday with backup blood in case she developed a worsening anemia with close follow-up following surgery with regards to her hemoglobin. Unfortunately, with the development of her worsening symptoms we were unable to call stroke team as she is not a tPA or thrombectomy to be candidate. I did discuss the case with Dr. Jacobs after ordering a stat CT of her head and CTA of her head and neck and he recommended transfer to [facility] [place]. I did discuss the case with the neurologist there and she agreed that she was not a tPA or thrombectomy candidate and indicated her care would most likely not change upon transfer. Images were reviewed by vascular surgery and unfortunately her right carotid is now completely obstructed and she is no longer surgical candidate given this finding. He discussed the case with the family and explained the reasoning behind this and they preferred to stay here for ongoing care and transition to rehab services after discharge. CTA did show interval development of complete occlusion of the cervical portion of the left internal carotid artery as well as interval occlusion of the left M1 segment of the MCA. We will give her full dose aspirin today restarting her baby aspirin tomorrow. The exact etiology for the utilization of Xarelto when discharged from [place] is unclear so we will hold this and obtain an event monitor after discharge. She has had no cardiac arrhythmias noted while admitted. We have highly recommended cessation of tobacco products and will aggressively treat secondary risk factors for ongoing stroke. Vascular surgery will follow-up as an outpatient as she is suspected to have lower extremity peripheral vascular disease and she has 50 to 69% occlusion of her right internal carotid artery. Patient will need acute rehab at discharge. Both myself and Dr. Jacobs had extensive discussion with the patient and her significant other at the bedside and all questions were answered. Family elects to keep patient here for ongoing care and progression towards discharge to acute rehab. Charges/Coding Visit Charges Inpatient E&M: 70096 Subs Hosp L3
[2023-02-09] MEDS: Losartan Potassium 25 MG Tablet PO (14:38)
[2023-02-09] MEDS: Potassium Chloride Oral Soln 20 MEQ/15 ML UDC 60 MEQ PO (14:39)
--- NOTE | 2023-02-09 14:42 | CASEMGMT ---
Addendum entered by Yaritza Terry 02/09/23 15:38: Social Work SW spoke w/pt's significant other Manny in the room, reviewed the two lists for rehab and SNF. SW explained that a SW on Saturday will follow up w/them regarding choices, SW explained therapy will help with input as far as the right level of care. SW to follow up Saturday. DAT Jones Original Note: Social Work SW spoke w/pt at the bedside, SW explained that she may need to go to a facility for rehab. SW explained to pt the two levels of care for rehab, SNF vs. Acute rehab. Pt is responding with simple yes or no answers, as per pt, she has aphasia. PHQ-9 not completed due to the aphasia. SW did leave lists of both penitentiary facilities and acute rehabs in room for pt's significant other, the lists are of facilities in pt's preferred geographic area, complete with quality and resource use data, and in network w/pt's insurance. SW explained to pt will check back again to see if significant other has returned, to review the lists w/him. Pt states okay. SW will continue to follow. DAT Jones
--- NOTE | 2023-02-09 16:01 | PCM.PROGNOTE ---
Subjective Subjective Patient underwent a colonoscopy yesterday. There were no sources of GI blood loss. Objective Data Objective Data Vital Signs: Vital Signs Temp Pulse Resp BP Pulse Ox O2 Del Method 97.4 F L 62 18 146/72 H 96 Room Air 02/09/23 14:35 02/09/23 14:35 02/09/23 14:35 02/09/23 14:35 02/09/23 14:35 02/09/23 14:35 Oxygen Delivery Method Room Air Weight: 137 lb 5.568 oz Body Mass Index (BMI) 21.4 Intake & Output: Intake and Output for Last 24 Hours 02/07/23 02/08/23 02/09/23 23:59 23:59 23:59 Intake Total 4565.0 / 4565.0 3180.34 / 3180.34 1589.33 / 1589.33 Output Total 400 / 400 Balance 4165.0 / 4165.0 3180.34 / 3180.34 1589.33 / 1589.33 Lab / Micro Data Result Diagrams: 02/09/23 05:55 02/09/23 07:59 Labs: Laboratory Results - last 24 hr 02/09/23 05:55: WBC 6.2, RBC 3.32 L, Hgb 9.5 L, Hct 29.4 L, MCV 88.6, MCH 28.6, MCHC 32.3, RDW Std Deviation 48.2 H, RDW Coeff of Fidel 15.3 H, Plt Count 393, MPV 11.2, Immature Gran % (Auto) 0.200, Neut % (Auto) 77.5 H, Lymph % (Auto) 11.5 L, [place] % (Auto) 6.9, Eos % (Auto) 3.4, Baso % (Auto) 0.5, Absolute Neuts (auto) 4.8, Absolute Lymphs (auto) 0.72 L, Nucleated RBC % 0 02/09/23 07:59: Sodium 145, Potassium 3.2 L, Chloride 112 H, Carbon Dioxide 25.0, Anion Gap 8, BUN 7, Creatinine 0.56, Estim Creat Clear Calc 107.78, Est GFR (MDRD) Af Amer 144, Est GFR (MDRD) Non-Af 119, BUN/Creatinine Ratio 12.5, Glucose 113 H, Calcium 8.5 Micro: Microbiology 02/06/23 12:00 Stool Stool Occult Blood (ELSY) - Final Occult Blood Positive Radiography Diagnostic Testing: Radiology Impression Brain CT 02/09/23 08:50 IMPRESSION: Subacute and acute ischemic changes as previously noted on MRI brain. No hemorrhage or mass effect. Electronically Signed: Sukhwinder Hyatt MD at 10:36 EDT , Head/Neck CTA 02/09/23 09:06 IMPRESSION: Interval development of complete occlusion of the cervical portion of the left internal carotid artery. Interval occlusion of the left M1 segment of the MCA. Electronically Signed: Sukhwinder Hyatt MD at 11:27 EDT , Physical Exam Const alert, no apparent distress and well nourished HEENT head/scalp atraumatic and moist oral mucous membranes Eyes PERRL and EOMs intact bilaterally; Negative for conjunctivae normal Eyes Narrative: Pale conjunctiva bilaterally, no scleral icterus Neck no lymphadenopathy and supple Neck Narrative: Trachea midline Resp normal respiratory effort, no retractions, no use of accessory muscles and clear to auscultation bilaterally Resp Narrative: Diffusely diminished but clear Auscultation: Negative for rales, rhonchi or wheezes Cardio regular rate, regular rhythm, S1 normal heart sound, S2 normal heart sound, no murmurs, no rub, no gallops and no clicks GI normal to inspection, nondistended, normoactive bowel sounds, soft to palpation and non-tender Extremity no clubbing, cyanosis or edema Extremity Narrative: Pedal pulses are 2+ Skin skin turgor normal, no jaundice, no petechiae and no mottling Skin Narrative: Vascular appearing wound on the distal aspect of right great toe and on medial malleolus posteriorly on the right lower extremity Neuro CN's II-XII intact bilaterally, No no focal motor deficits and no sensory deficits noted Neuro Narrative: Orientation is to call to assess due to expressive aphasia however this seems to be intact based on interaction, complete flaccidity of the right and upper lower extremity, patient continues to follow commands however remains with expressive aphasia no cranial nerve abnormalities noted Speech: Negative for speech normal Psych Psych Narrative: Affect is very flat and patient seem depressed and very angry at this time-appropriately so with given situation Assessment & Plan Assessment/Plan (1) Anemia: PLAN: Unfortunately the etiology of her acute blood loss anemia was not discovered on upper and lower endoscopy. The only other avenue would be to perform a capsule endoscopy. This can be done as an outpatient. I am okay with her being on antiplatelets. Charges/Coding Visit Charges Inpatient E&M: 43276 Subs Hosp L2
[2023-02-09] MEDS: Atorvastatin Calcium 80 MG Tablet PO (21:54)
[2023-02-10] VITALS (9 sets, daily range): BP systolic 109–160; BP diastolic 59–74; PULSE 52–63; RESP 16–18; TEMP 36.8–37.2; O2SAT 95–97; BMI 21.4
--- NOTE | 2023-02-10 02:03 | NURSING ---
NIH was hard to perform due to patient not wanting to participate. Patient getting agitated with RN when asked to perform NIH assessment. When asked if feels any different, patient did state NO. is at bedside at this time.
[2023-02-10 06:19] LABS: Absolute Lymphocyte Count 0.84 X10^3/uL (0.83-4.51); Absolute Neutrophil Count 5.6 X10^3/uL (2.0-7.7); Basophil# 0.04 X10^3/uL; Basophil% 0.6 % (0-1); Eosinophil# 0.21 X10^3/uL; Hematocrit 32.5 % (37-47); Hemoglobin 10.3 g/dL (12.0-15.0); Lymphocyte # 0.84 X10^3/ul (0.83-4.51); Lymphocyte % 11.8 % (19-41); Mean Corp Hgb Conc 31.7 g/dL (32-36); Mean Corpuscular Hgb 28.3 pg (27.0-32.0); Mean Corpuscular Volume 89.3 fL (81-99); Mean Platelet Vol. 11.6 fl (6.2-12.0); Monocyte# 0.42 X10^3/uL; Monocyte% 5.9 % (0-10); NRBC Flagged by Analyzer 0 % (0-5); Neutrophil # 5.58 X10^3/uL (2.7-7.7); Neutrophil % 78.4 % (47-70); Platelet Count 445 K/mm3 (150-450); RBC Distribution Width CV 15.1 % (11.6-14.6); RBC Distribution Width SD 49.2 fl (35.1-43.9); Red Blood Count 3.64 M/mm3 (4.2-5.4); White Blood Count 7.1 K/mm3 (4.4-11.0)
[2023-02-10 06:58] LABS: Anion Gap 8 (5-15); BUN 11 mg/dL (7-18); BUN/Creat Ratio 21.4 RATIO (10-20); Calcium,Total 8.8 mg/dL (8.5-10.1); Chloride 113 mmol/L (98-107); Creatinine, Serum 0.52 mg/dL (0.55-1.02); EST Glomerular Filtration Rate 130 mL/min (>60); Est Glom Filt Rate - Afr Amer 158 mL/min (>60); Estimated Creatinine Clearance 116.08 ml/min; Glucose 100 mg/dL (74-106); Magnesium 1.9 mg/dL (1.6-2.6); Potassium 3.3 mmol/L (3.5-5.1); Sodium Level 144 mmol/L (136-145)
[2023-02-10] MEDS: Potassium Chloride Oral Soln 20 MEQ/15 ML UDC 60 MEQ PO (09:32)
[2023-02-10] MEDS: Metoprolol Tartrate 25 MG Tablet PO (09:32)
[2023-02-10] MEDS: Losartan Potassium 50 MG Tablet PO (09:32)
[2023-02-10] MEDS: Aspirin 81 MG TAB.CHEW PO (09:32)
--- NOTE | 2023-02-10 10:19 | PN.HOSP_ITS ---
Reason for Visit Reason for Visit: Right arm and leg weakness Subjective Subjective No issues overnight. Per significant other patient did seem to sleep well last evening. Patient is able to move right lower extremity improved from yesterday. Right upper extremity remains fairly flaccid with some minimal movement in hand. She was agreeable to speech therapy this morning and indicates she will do occupational and physical therapy however she did refuse yesterday. I discussed with both she and the significant other the importance of participating with therapy and getting her to acute rehab in the next 24 to 48 hours if possible. I discussed what acute rehab would entail and they voiced understanding and seem to want this for her. Her blood pressure is well higher than I would like and I discussed this with them as well and have uptitrated her losartan from 25 to 50 mg. Objective Data Objective Data Vital Signs: Vital Signs Temp Pulse Resp BP Pulse Ox O2 Del Method 98.5 F 63 18 132/69 H 95 Room Air 02/10/23 08:35 02/10/23 09:32 02/10/23 08:35 02/10/23 09:32 02/10/23 08:35 02/10/23 09:20 Oxygen Delivery Method Room Air Weight: 62.3 kg Body Mass Index (BMI) 21.4 Intake & Output: Intake and Output for Last 24 Hours 02/08/23 02/09/23 02/10/23 23:59 23:59 23:59 Intake Total 3180.34 / 3180.34 1829.33 / 1829.33 Balance 3180.34 / 3180.34 1829.33 / 1829.33 Lab / Micro Data Result Diagrams: 02/10/23 05:26 02/10/23 05:26 Labs: Laboratory Results - last 24 hr 02/10/23 05:26: WBC 7.1, RBC 3.64 L, Hgb 10.3 L, Hct 32.5 L, MCV 89.3, MCH 28.3, MCHC 31.7 L, RDW Std Deviation 49.2 H, RDW Coeff of Fidel 15.1 H, Plt Count 445, MPV 11.6, Immature Gran % (Auto) 0.300, Neut % (Auto) 78.4 H, Lymph % (Auto) 11.8 L, [place] % (Auto) 5.9, Eos % (Auto) 3.0, Baso % (Auto) 0.6, Absolute Neuts (auto) 5.6, Absolute Lymphs (auto) 0.84, Nucleated RBC % 0 02/10/23 05:26: Sodium 144, Potassium 3.3 L, Chloride 113 H, Carbon Dioxide 23.0, Anion Gap 8, BUN 11, Creatinine 0.52 L, Estim Creat Clear Calc 116.08, Est GFR (MDRD) Af Amer 158, Est GFR (MDRD) Non-Af 130, BUN/Creatinine Ratio 21.4 H, Glucose 100, Calcium 8.8, Magnesium 1.9 Micro: Microbiology 02/06/23 12:00 Stool Stool Occult Blood (ELSY) - Final Occult Blood Positive Radiography Diagnostic Testing: Radiology Impression Brain CT 02/09/23 08:50 IMPRESSION: Subacute and acute ischemic changes as previously noted on MRI brain. No hemorrhage or mass effect. Electronically Signed: Sukhwinder Hyatt MD at 10:36 EDT , Head/Neck CTA 02/09/23 09:06 IMPRESSION: Interval development of complete occlusion of the cervical portion of the left internal carotid artery. Interval occlusion of the left M1 segment of the MCA. Electronically Signed: Sukhwinder Hyatt MD at 11:27 EDT , Physical Exam Const alert, no apparent distress and well nourished Constitutional Narrative: Middle-aged, white female, sitting up in bed, appears older than stated age, nontoxic, significant other at bedside HEENT head/scalp atraumatic and moist oral mucous membranes HEENT Narrative: Dentures in place, Mallampati 2, no thrush Head and Scalp: normocephalic Resp normal respiratory effort, no retractions, no use of accessory muscles and clear to auscultation bilaterally Resp Narrative: Diffusely diminished but clear Auscultation: Negative for rales, rhonchi or wheezes Cardio regular rate, regular rhythm, S1 normal heart sound, S2 normal heart sound, no murmurs, no rub, no gallops and no clicks GI normal to inspection, nondistended, normoactive bowel sounds, soft to palpation and non-tender Extremity no clubbing, cyanosis or edema Extremity Narrative: Pedal pulses are 2+ Skin Skin Narrative: Vascular appearing wound on the distal aspect of right great toe and on medial malleolus posteriorly on the right lower extremity--> medial malleolus wound was somewhat wet and covered with a bandage at this time Neuro CN's II-XII intact bilaterally, No no focal motor deficits and no sensory deficits noted Neuro Narrative: Patient is able to perform antigravity movement with right lower extremity today which she was not able to do yesterday, right upper extremity is fairly flaccid, sensory exam is difficult as patient has expressive aphasia and some mild receptive aphasia however his sensation does appear to be intact, no significant cranial nerve abnormalities noted Speech: Negative for speech normal Psych Psych Narrative: Patient does seem brighter today and more agreeable and less angry Assessment & Plan Assessment/Plan (1) GI bleed: (2) Anemia: (3) Right sided weakness: (4) Fall: (5) Carotid artery stenosis: (6) Leukocytosis: (7) Hypokalemia: (8) Acute stroke due to ischemia: PLAN: Plan Acute GI bleed -Hemoglobin on 01/24/2023 was 12.7--> down to 5 on presentation--> now stabilized in the 9-10 range--> 10.3 today -Stool was guaiac positive -Continue to hold Xarelto indefinitely -EGD done on 02/07/2023 showed normal esophagus, bile gastritis that was biopsied, 2 nonbleeding 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 that were treated with monopolar probe and colonoscopy was recommended -Colonoscopy showed diverticulosis in the rectosigmoid colon and sigmoid colon with no polyps or other abnormalities and no signs of bleeding Acute anemia -Patient status post 3 units packed red blood cells on 02/06/2023 -Hemoglobin 5 on presentation--> Xarelto and aspirin held on the recommendation of neurology -Hemoglobin has stabilized since transfusion has been between 9 and 10--> and up to 10.3 today despite reinitiation of aspirin -EGD and unremarkable for explanation of that significant of a hemoglobin drop -Colonoscopy unremarkable to explain bleeding -We will need outpatient small capsule endoscopy after discharge--> will refer to Dr. Cowan so he can set this up at the time of discharge -CT of the abdomen pelvis unremarkable -Continue to trend hemoglobin closely with the initiation of aspirin again yesterday Acute MCA stroke -Currently with new right-sided weakness on presentation-> worsened on the a.m. of 02/09/2023 with now dense hemiparesis and completely occluded left internal carotid artery--> right upper extremity is still fairly flaccid but right lower extremity has improved strength today -MRI done on admission several small foci of focal areas of acute ischemic change in the watershed region of the frontal and parietal lobes and a subacute stroke in the left frontal lobe -CT done on 02/09/2023 showed subacute and acute ischemic changes consistent with previous MRI and CTA of the head and neck demonstrated interval development of c omplete occlusion of the cervical portion of the left internal carotid artery as well as interval occlusion of the left M1 segment of the MCA -I discussed the case with [facility] neurology on 02/09/2023 and she is not a candidate for thrombolytics or thrombectomy given her recent history -Continue stroke protocol -Echocardiogram done here showed an EF of 70% with trivial mitral valve insufficiency and a negative bubble study -Continue aspirin 81 mg daily -Continue high-dose statin -PT/OT following -Speech following -Outpatient neurology follow-up at discharge -Would recommend acute rehab at discharge--> strongly encourage patient with maximal participation in therapy services today -We will need event monitor at the time of discharge to assess further for A-fib -Discussed case with vascular surgery and would hold off with Plavix at this time Recent stroke left MCA -Patient with acute stroke approximately 1 month ago -Critical left internal carotid artery stenosis noted at that time -Management as above -Patient with resultant expressive aphasia Left critical artery stenosis/right carotid artery stenosis-moderate -Unfortunately the patient has completely occluded her left internal carotid artery and at this point is no longer a surgical candidate -Case was discussed by vascular surgery with the patient and family and they have elected to stay here -Vascular surgery will continue to follow as patient has suspected bilateral lower extremity vascular disease and right internal carotid artery stenosis that is 50 to 69% in severity at this time and will need followed as an outpatient Hypokalemia -Still low but trending up -Replete again today -Recheck potassium in the morning -Mag levels within normal limits on 02/08/2023 CAD/ischemic cardiomyopathy/HTN/HPL -Continue aspirin 81 mg -Continue metoprolol 25 mg p.o. twice daily per Dr. Hahn's recommendation for the initiation of a beta-yuliana -Increase losartan from 25 mg daily to 50 mg daily as blood pressure is still above goal 130/80 or less--> patient takes Micardis 80 mg daily at home -Continue high intensity dose statin -Patient with recent stress test that showed fixed perfusion defect related to previous infarct--> done 01/31/2023 -Echocardiogram done here showed an EF of 70% with trivial mitral valve insufficiency and a negative bubble study Tobacco abuse -recommend cessation DVT prophylaxis -SCDs -Start subcu Lovenox 40 mg daily CODE STATUS -Full code Disposition: Plan is for acute rehab. Family would prefer to stay in [place] if possible. We will discuss the case with Dr. Arnold tomorrow and pursue acceptance. Family does understand that they will require 3 hours of therapy a day and she will have to have ongoing participation. Patient was strongly encouraged to aggressively participate in therapy service today. She is already done speech therapy eval today. Will need outpatient follow-up with vascular for lower extremity and continued monitoring of her right internal carotid artery. We will also need outpatient capsule endoscopy to be ordered by Dr. Cowan for further evaluation of her anemia that was present on admission. Event monitor will be required at discharge as well to evaluate for atrial fibrillation as there was never a definitive diagnosis of this. We are unclear why she was discharged on Xarelto at the time of her initial stroke in [place] as there is no documented arrhythmia or other etiology to start full anticoagulation therefore we will investigate extensively here. Charges/Coding Visit Charges Inpatient E&M: 21207 Subs Hosp L2
[2023-02-10] MEDS: Atorvastatin Calcium 80 MG Tablet PO (20:36)
[2023-02-11 00:35] VITALS: BP 140/68; PULSE 50; RESP 18; TEMP 36.6; O2SAT 96
[2023-02-11 04:35] VITALS: BP 139/77; PULSE 50; RESP 16; TEMP 36.6; O2SAT 95
[2023-02-11 06:27] LABS: Absolute Lymphocyte Count 1.22 X10^3/uL (0.83-4.51); Absolute Neutrophil Count 5.6 X10^3/uL (2.0-7.7); Basophil# 0.04 X10^3/uL; Basophil% 0.5 % (0-1); Eosinophil# 0.19 X10^3/uL; Eosinophils% 2.5 % (0-5); Hematocrit 32.8 % (37-47); Hemoglobin 10.4 g/dL (12.0-15.0); Lymphocyte # 1.22 X10^3/ul (0.83-4.51); Lymphocyte % 15.9 % (19-41); Mean Corp Hgb Conc 31.7 g/dL (32-36); Mean Corpuscular Hgb 28.4 pg (27.0-32.0); Mean Corpuscular Volume 89.6 fL (81-99); Mean Platelet Vol. 11.3 fl (6.2-12.0); Monocyte# 0.55 X10^3/uL; Monocyte% 7.2 % (0-10); NRBC Flagged by Analyzer 0 % (0-5); Neutrophil # 5.64 X10^3/uL (2.7-7.7); Neutrophil % 73.4 % (47-70); Platelet Count 440 K/mm3 (150-450); RBC Distribution Width CV 14.8 % (11.6-14.6); RBC Distribution Width SD 48.4 fl (35.1-43.9); Red Blood Count 3.66 M/mm3 (4.2-5.4); White Blood Count 7.7 K/mm3 (4.4-11.0)
[2023-02-11 06:50] LABS: Anion Gap 7 (5-15); BUN 15 mg/dL (7-18); BUN/Creat Ratio 27.6 RATIO (10-20); Calcium,Total 9.1 mg/dL (8.5-10.1); Chloride 108 mmol/L (98-107); Creatinine, Serum 0.54 mg/dL (0.55-1.02); EST Glomerular Filtration Rate 123 mL/min (>60); Est Glom Filt Rate - Afr Amer 148 mL/min (>60); Estimated Creatinine Clearance 111.78 ml/min; Glucose 123 mg/dL (74-106); Sodium Level 140 mmol/L (136-145)
[2023-02-11 08:35] VITALS: BP 118/63; PULSE 55; RESP 16; TEMP 36.5; O2SAT 95
[2023-02-11 08:53] VITALS: PULSE 57
[2023-02-11] MEDS: Aspirin 81 MG TAB.CHEW PO (08:53)
[2023-02-11] MEDS: Metoprolol Tartrate 25 MG Tablet PO (08:53)
[2023-02-11] MEDS: Losartan Potassium 50 MG Tablet PO (08:54)
[2023-02-11 10:36] VITALS: BMI 21.4
--- NOTE | 2023-02-11 11:03 | CASEMGMT ---
Addendum entered by Caridad Valladares 02/11/23 13:49: Per physician, pt is ready for discharge today. Discharge orders faxed to TCU. Pt and significant other are aware and agreeable to discharge plan. Nurse updated that pt can be discharged to TCU at this time. Disposition: TCU, skilled level of care FRANCOISE Jung Original Note: Social Work SW spoke with physician and pt would benefit from Inpatient Rehab and pt and family would like [facility]. Phone call to [facility] in post acute admissions. A bed will not be available in until Saturday, but pt could admit to TCU today and then move up to on Saturday. MCKENNA met with pt, pt significant other and discussed discharge plan. Pt confirms preferred provider is [facility]. SW explained bed situation and admission to TCU initially. Pt and family agreeable. Physician updated. Plan: TCU today with transfer to on Saturday FRANCOISE Jung
--- NOTE | 2023-02-11 12:04 | PCM.TXEXTCAR ---
Diet Diet Order/Speech Therapy: 02/09/23 13:37 Diet: Cardiac - Heart Healthy Is pt able to select menu?: No Routine Orders/Code Status Routine Lab Work: CBC (02/14/23) and BMP (02/14/23) Code Status: Full Code Wound(s) right inner ankle: Wound Type: Stasis Ulcer Dressing Change: Dry Sterile Dressing Rt big toe: Wound Type: Stasis Ulcer R Lateral leg near knee: Wound Type: vascular Dressing Change: Dry Sterile Dressing Suggestions for Active Care Change Position every (hours): 2 Hours to sit in a chair: 2 Times a day to sit in chair: 2 Therapies Weight Bearing: Full weight bearing Physical Therapy: Eval and Treat Occupational Therapy: Eval and Treat Speech Therapy: Eval and Treat Problem/Diagnosis (1) GI bleed: Status: Acute Code(s): K92.2 - Gastrointestinal hemorrhage, unspecified (2) Anemia: Status: Acute Code(s): D64.9 - Anemia, unspecified (3) Right sided weakness: Status: Acute Code(s): R53.1 - Weakness (4) Fall: Status: Acute Code(s): W19.XXXA - Unspecified fall, initial encounter (5) Carotid artery stenosis: Status: Chronic Code(s): I65.29 - Occlusion and stenosis of unspecified carotid artery Comment: CTA/CTA images reviewed- 3 cm left hemispheric stroke; 99% left ICA stenosis (6) Leukocytosis: Status: Acute Code(s): D72.829 - Elevated white blood cell count, unspecified (7) Hypokalemia: Status: Acute Code(s): E87.6 - Hypokalemia (8) Acute stroke due to ischemia: Status: Acute Code(s): I63.9 - Cerebral infarction, unspecified Allergies/Procedures Done in Hospital Allergies celecoxib [From Celebrex] Allergy (Severe, Verified 01/28/23 10:24) Other isosorbide mononitrate [From Imdur] Allergy (Severe, Verified 01/28/23 10:24) Other meloxicam [From Mobic] Allergy (Severe, Verified 01/28/23 10:24) Nausea/Vom/Diarrhea Procedures: 2-D Echocardiogram, Blood transfusion, Colonoscopy, EGD and - (MRI brain been/carotid Dopplers/CTA head and neck x2/CT abdomen/pelvis) Type of Care/Length of Stay Estimated LOS: Convalescent Care Less Than 30 days Type of Care Needed: Skilled Rehab Potential: Good Prognosis: Good Additional Orders/Day of Discharge Day of Discharge: 02/11/23 Dietary and Speech Recommendations Dietitian Recommendations/Changes: recommend advance diet as tolerated to cardiac- texture/consistency per CHEMICAL INSTRUMENTATION OFFICER as indicated. Pending GI work up, may benefit from transitional diet until tolerance of PO diet is established; consider ensure w/ medpass when diet advanced. Speech Linguistic Eval Summary: Pt agreeable to participating in speech therapy evaluation this date. at bedside. Pt just consumed breakfast with no reported s/sx of penetration/aspiration. Pt's physician, Dr. Aviles, present for end of evaluation and confirming swallow to not be a concern at this time. Pt hoping to participate in rehab. Pt participated in informal aphasia evaluation. Pt followed 1-step directions with 55% acc and did not benefit from direct imitation. Pt answered basic y/n questions with 42% and answered complex y/n questions with 0% acc. reporting she is more reliable with shaking her head. Pt completed confrontation naming task with 0% with verbal speech however benefited from written choice of 2 with pointing to choice to improve acc to 60% acc -- did not benefit from completing a leading phrase (e.g., I sleep in a ___). Pt able to identify her name from a choice of 2. Pt completing divergent naming task with 0% acc. Pt reciting rote speech task (ABCs) with 7% acc however benefited from written presentation of the alphabet and ST singing along to improve acc to 42% acc. Pt often verbalizing no when asked questions. Only 1 occurrence of spontaneous speech use occurred during divergent naming task when Pt was shown a spoon and responded with to eat. Pt may benefit from use of a communication board with the alphabet and other ADL choices. Discharge Plan Admission Admit Date/Time: 02/06/23 14:20 Attending Provider: Peg Aviles Primary Care Provider: Arcenio Jones Consulting Providers: William Jacobs ; Angelique Dejesus ; Shashank Hahn Discharge Orders/Prescriptions Prescriptions: No Action nitroglycerin 0.4 mg tablet, sublingual 0.4 mg SUBLINGUAL Q5-15M PRN (Reason: Chest Pain) aspirin 81 MG tablet,chewable 81 mg PO DAILY@0800 amlodipine 5 mg Tablet 5 mg PO BID Xarelto 20 mg Tablet 20 mg PO DAILY Rx Instructions: must administer with evening meal atorvastatin 80 mg tablet 80 mg PO QHS telmisartan [Micardis] 80 mg tablet 80 mg PO DAILY Other Ambulatory Orders: 30 Day Event Recorder Preventi (Urgent) Timeframe: 1 Day Facility: [facility] - Location: Cardiovascular Services Ordered By: Dr. Peg Aviles Referrals / Follow Up: Shashank Hahn MD [Med Staff - Active Staff] - Within 1 Month William Jacobs MD [Med Staff - Active Staff] - Within 2 Weeks Arcenio Jones MD [Primary Care Provider] - Wili Monet MD [Non-Staff -Ordering Privileges] - Within 3 Months Fran Cowan DO [Med Staff - Active Staff] - Within 1 Month (for capsule endoscopy)
--- NOTE | 2023-02-11 12:07 | DS.PCM_ITS ---
Providers Date of Admission: 02/06/23 Date of Discharge: 02/11/23 Primary Care Physician: Dr. Arcenio Jones MD Consultations 02/06/23 16:21 Consult: Gastroenterology Routine Consulting Provider: [facility] Reason for Consult: GIB, hgb 5, on xeralto and asa w/ recent stroke and critical LICA stenosis EMERGENT Consult: No MD Notified: Yes Date Notified: 02/06/23 Time Notified: 14:37 Method of Notification: ED Physician Initiated Consult: Vascular Surgery Routine Consulting Provider: William Jacobs Reason for Consult: critical L carotid stenosis EMERGENT Consult: No Notified: Yes Date Notified: 02/06/23 Time Notified: 15:17 Method of Notification: Verbal 02/07/23 17:24 Consult: Cardiology Routine Consulting Provider: Shashank Hahn Reason for Consult: preoperative assessment EMERGENT Consult: No Notified: Yes Date Notified: 02/07/23 Time Notified: 17:24 Method of Notification: Verbal Reason For Visit: GI BLEED Diagnosis Discharge Diagnosis (1) GI bleed: Status: Acute Code(s): K92.2 - Gastrointestinal hemorrhage, unspecified (2) Anemia: Status: Acute Code(s): D64.9 - Anemia, unspecified (3) Right sided weakness: Status: Acute Code(s): R53.1 - Weakness (4) Fall: Status: Acute Code(s): W19.XXXA - Unspecified fall, initial encounter (5) Carotid artery stenosis: Status: Chronic Code(s): I65.29 - Occlusion and stenosis of unspecified carotid artery (6) Leukocytosis: Status: Acute Code(s): D72.829 - Elevated white blood cell count, unspecified (7) Hypokalemia: Status: Acute Code(s): E87.6 - Hypokalemia (8) Acute stroke due to ischemia: Status: Acute Code(s): I63.9 - Cerebral infarction, unspecified Medications at Discharge Home Medications aspirin 81 mg chewable tablet 81 mg PO DAILY@0800 HEALTH MAINTENANCE 05/13/14 nitroglycerin 0.4 mg sublingual tablet 0.4 mg sublingual Q5-15M PRN Chest Pain 09/25/19 atorvastatin 80 mg tablet 80 mg PO QHS CHOLESTEROL 02/06/23 acetaminophen 325 mg tablet 650 mg PO Q6H PRN PRN Pain 1-10 Or Fever>100.7 #0 tabs 02/11/23 losartan 50 mg tablet 50 mg PO DAILY #0 tabs 02/11/23 metoprolol tartrate 25 mg tablet 25 mg PO BID #0 tabs 02/11/23 sennosides 8.6 mg-docusate sodium 50 mg tablet (Stool Softener-Stimulant Laxative) 2 tab PO BID PRN PRN Constipation #0 tabs 02/11/23 Hospital Course Operations None Procedures 2-D Echocardiogram, Blood transfusion, Colonoscopy and EGD Summary of Care Provided Minutes Spent on Discharge: 41 Hospital Course: Ms Waldron is a 57-year-old female with a complex medical history including CAD and left critical ICA stenosis who suffered from a stroke 1 month ago in [place] with resultant expressive aphasia. She presented to the emergency department was prehospital on 02/06/2023 with right upper and lower extremity weakness.? After leaving [place] she came back to [place] as she had previously lived here. She returned to the [facility] for medical care. She had followed up as an outpatient with Dr. Jacobs from vascular surgery and plans were for doing a left carotid endarterectomy on 02/22/2023. She had undergone an outpatient cardiac s tress test on 01/31/2023 which showed a moderate to large fixed inferior defect consistent with the patient's previous history of myocardial infarction with no reversible defects noted, inferior hypokinesis and an EF of 39%.echocardiogram done on 02/07/2023 however showed an EF of 70% with only trivial mitral valve insufficiency and a negative bubble study. Upon presentation she was found to have a hemoglobin of 5.? Her hemoglobin 2 weeks prior to presentation was 12.7.? Her stool was guaiac positive.? CT of the brain was unremarkable.? Multiple x- rays were performed due to her fall and were all found to be negative for any acute fractures.? She was ordered 3 units of packed red blood cells in the emergency department.? She was found to have new onset right-sided weakness at the time of presentation. She was placed on a PPI drip and her Xarelto was held.? She was maintained on her aspirin per the instruction of vascular surgery initially, however, MRI was performed at the time of admission and demonstrated several small focal areas of acute ischemic change within the watershed area of the left frontal and parietal lobes as well as her subacute left frontal infarct. Telestroke neurology was consulted and they recommended ongoing evaluation of her severe anemia and recommended discontinuing her aspirin at that time. She was admitted to the PCU with a new stroke and gastroenterology and vascular surgery was consulted. Gastroenterology, given her positive guaiac and new anemia, recommended an EGD and colonoscopy be performed. These were scheduled for the and we were able to proceed with the EGD however the colonoscopy had to be delayed as the patient would not completely drink the prep and had 2 enemas but refused any further and she was not appropriately cleaned out to perform this procedure on the . EGD demonstrated a normal esophagus, patchy mild inflammation characterized by erythema in the gastric biopsy which were biopsied (biopsies pending at discharge) and two 5 mm angiodysplastic lesions without bleeding were noted in the duodenal bulb. Coagulation was performed for bleeding prevention using a monopolar probe. We were able to proceed with colonoscopy on 02/08/2023 after more bowel prep was consumed and this showed diverticulosis in the rectosigmoid and sigmoid colon with no other abnormalities and a repeat colonoscopy was recommended in 10 years for screening purposes. We additionally performed a CT of her abdomen pelvis to rule out a r etroperitoneal bleed or other etiology for blood loss and it was negative for any acute findings. Her hemoglobin did improve with the 3 units of packed red blood cells and after transfusion her hemoglobin stabilized in the 9-10.5 range for several days prior to discharge. I discussed the case with vascular surgery who had consulted cardiology for clearance with intent to perform a left carotid endarterectomy on 02/11/2023. Cardiology cleared her for surgery. I further discussed the case with vascular surgery after we were unable to identify an etiology for her blood loss and the plan was to proceed with carotid endarterectomy having blood on hold on 02/11/2023. Unfortunately on the a.m. of 02/09/2023 I was called to the bedside as the patient had developed new onset right upper extremity and lower extremity complete hemiparesis which was new compared to previous exam. NIH had increased from a 4 to a 10. I did discuss the case with Dr. Jacobs after ordering a stat CT of her head and CTA of her head and neck and he recommended transfer to [facility].? I did discuss the case with the neurologist there (Dr. Isaacs) and she agreed that she was not a tPA or thrombectomy candidate and indicated her care would most likely not change upon transfer but they would except her when a bed became available if we wanted to pursue transfer.? Images were reviewed by vascular surgery and unfortunately her right carotid was now completely obstructed and she is no longer surgical candidate given this finding.? Vascular surgery discussed the case with the family and explained the reasoning behind this and they preferred to stay here for ongoing care and transition to rehab services after discharge.? CTA did show interval development of complete occlusion of the cervical portion of the left internal carotid artery as well as interval occlusion of the left M1 segment of the MCA.? We gave her a one-time dose of 325 mg aspirin and were able to restart her 81 mg dose. The reinitiation of her aspirin was delayed given the inability to perform her colonoscopy on the . Her hemoglobin remained stable following this initiation.? The exact etiology for the utilization of Xarelto when discharged from [place] is unclear so we held this and have ordered an event monitor to be performed after discharge for 30 days.? She has had no cardiac arrhythmias noted while admitted.? We have highly recommended cessation of tobacco products and will aggressively treat secondary risk factors for ongoing stroke.? Vascular surgery will follow-up as an outpatient as she is suspected to have lower extremity peripheral vascular disease and she has 50 to 69% occlusion of her right internal carotid artery.? After the above above unfortunate events and not being a surgical candidate with new deficits we discussed acute inpatient rehab at discharge. Both patient and significant other were agreeable to this and patient aggressively participated with physical, occupational, and speech therapy on 02/11/2023 and was deemed appropriate for ongoing inpatient acute rehab. I discussed the case with our rehab physician as they wanted to stay in [place] if at all possible. A bed is available for her on 02/16/2023. Options were to transfer the patient to the transitional care unit for ongoing therapy services that would be more intense and we could provide as an inpatient with transition to inpatient rehab on Saturday when a bed became available versus ongoing inpatient hospitalization until bed was available at rehab. Patient and family preferred to go to TCU to ease into rehab until she was able to go to acute inpatient rehab on Saturday. I have recommended a repeat BMP and CBC be performed on 02/15/2023. I did discuss with the family that this would be a slow process of her recovery and would expect her to see her new baseline anywhere from 12 to 18 months from this point in time. I have instructed her to follow-up with the following outpatient specialists, Dr. Jacobs-vascular surgery, Dr. Hahn-cardiology, Dr. Cowan-gastroenterology (patient will need a capsule endoscopy to evaluate her small bowel for any bleeding sources as we were not able to identify a source of her anemia during her hospitalization), Dr. Monet-neurology, and her primary care physician within the next month. Medication changes were discontinuation of her and in my Cardis with the substitution of metoprolol 25 mg p.o. twice daily and losartan 50 mg daily. These medications may need uptitrated to attain a goal blood pressure of 130/80 or less. She was maintained on her atorvastatin 80 mg at at bedtime as well as aspirin but we did discontinue her Xarelto as we do not have an identified etiology to continue this medication at this time however as noted above she will have an event monitor for 30 days after discharge. She was discharged to the TCU on 02/11/2023 in stable condition with the intent to transition to the inpatient acute rehab center at [facility] on 02/16/2023. Discharge diagnoses: Acute GI bleed Acute anemia Acute left MCA stroke Recent left MCA stroke Right-sided hemiparesis Global aphasia--> expressive worse than receptive Occluded left carotid artery Moderate right carotid artery stenosis (50- 69%) Suspected peripheral vascular disease Carotid artery disease with history of myocardial infarction Hypertension Hyperlipidemia Tobacco abuse Physical Exam Narrative Patient had a good night overall. Participated with therapy well yesterday. Anxious to get started with rehab. Const alert, no apparent distress and well nourished Constitutional Narrative: Middle-aged, white female, sitting up in bed, appears older than stated age, nontoxic, significant other and another friend at bedside, today is the best that she has appeared to me since I took over her care General Appearance: cooperative, comfortable, well kempt and well developed Orientation / Consciousness: awake Exam Limitations: other limitations HEENT normocephalic, head/scalp atraumatic, hearing grossly normal bilaterally and moist oral mucous membranes HEENT Narrative: Dentures in place, Mallampati 2, no thrush Eyes PERRL and EOMs intact bilaterally; Negative for conjunctivae normal Eyes Narrative: Mildly pale conjunctiva bilaterally, no scleral icterus Neck no lymphadenopathy and supple Neck Narrative: Trachea midline, no thrush Resp normal respiratory effort, no retractions, no use of accessory muscles and clear to auscultation bilaterally Resp Narrative: Diffusely diminished but clear Auscultation: Negative for rales, rhonchi or wheezes Cardio regular rate, regular rhythm, S1 normal heart sound, S2 normal heart sound, no murmurs, no rub, no gallops and no clicks GI normal to inspection, nondistended, normoactive bowel sounds, soft to palpation and non-tender Extremity no clubbing, cyanosis or edema Extremity Narrative: Pedal pulses are diminished bilateral lower extremities-this is not a change it was corrected from previous documentation, radial pulses are 2+ Skin skin turgor normal, no jaundice, no petechiae and no mottling Skin Narrative: Vascular appearing wound on the distal aspect of right great toe and on medial malleolus posteriorly on the right lower extremity, also vascular appearing wound on the lateral aspect of the upper distal right leg near the knee-does not appear infected Neuro CN's II-XII intact bilaterally, No no focal motor deficits and no sensory deficits noted Neuro Narrative: Right lower extremity antigravity movement has improved with strength again in the last 24 hours, right upper extremity shows improved movement at the hand as patient is now able to bowl to open and close hand with weakness however she was not able to move much yesterday, still no antigravity movement or movement against gravity in the wrist or more approximately, sensory exam is difficult as patient has expressive aphasia and some mild receptive aphasia however his sensation does appear to be intact, no significant cranial nerve abnormalities noted Speech: Negative for speech normal Psych affect normal Psych Narrative: Eye contact is good, patient is more involved in conversation and much less angry Weight / BMI Weight Weight: 62.3 kg Body Mass Index (BMI) 21.4 ABG / Lab / Microbiology Data Result Diagrams: 02/11/23 06:10 02/11/23 06:10 Laboratory: Laboratory Results - last 24 hr 02/11/23 06:10: WBC 7.7, RBC 3.66 L, Hgb 10.4 L, Hct 32.8 L, MCV 89.6, MCH 28.4, MCHC 31.7 L, RDW Std Deviation 48.4 H, RDW Coeff of Fidel 14.8 H, Plt Count 440, MPV 11.3, Immature Gran % (Auto) 0.500, Neut % (Auto) 73.4 H, Lymph % (Auto) 15.9 L, [place] % (Auto) 7.2, Eos % (Auto) 2.5, Baso % (Auto) 0.5, Absolute Neuts (auto) 5.6, Absolute Lymphs (auto) 1.22, Nucleated RBC % 0 02/11/23 06:10: Sodium 140, Potassium 4.0, Chloride 108 H, Carbon Dioxide 25.0, Anion Gap 7, BUN 15, Creatinine 0.54 L, Estim Creat Clear Calc 111.78, Est GFR (MDRD) Af Amer 148, Est GFR (MDRD) Non-Af 123, BUN/Creatinine Ratio 27.6 H, Glucose 123 H, Calcium 9.1 Microbiology: Microbiology 02/06/23 12:00 Stool Stool Occult Blood (ELSY) - Final Occult Blood Positive Meaningful Use Info Meaningful Use Diagnoses (Choose all that apply): Ischemic CVA CVA Therapy Assessed for PT,OT and/or ST?: Yes Ischemic Stroke Antithrombotic order at d/c?: Yes Dx of Atrial fib/flutter?: No Anticoagulant at discharge?: No Reason anticoagulant not ordered: Treatment not Indicated Statins at discharge?: Yes Primary Dx Acute Ischemic CVA?: Yes IV thrombolytic ordered during stay?: No Reason IV thrombolytic not ordered: Medical Contraindication (hgb 5.0 with + guiac stool on Xarelto) Discharge Plan Admission Admit Date/Time: 02/06/23 14:20 Primary Reason for Your Visit: R sided weakness Attending Provider: Peg Aviles Primary Care Provider: Arcenio Jones Consulting Providers: William Jacobs ; Angelique Dejesus ; Shashank Hahn Discharge Orders/Prescriptions Prescriptions: New losartan 50 mg Tablet 50 mg PO DAILY Qty: 0 0RF acetaminophen 325 mg Tablet 650 mg PO Q6H PRN PRN (Reason: Pain 1-10 Or Fever>100.7) Qty: 0 0RF sennosides-docusate sodium [Stool Softener-Stimulant Laxat] 8.6-50 mg Tablet 2 tab PO BID PRN PRN (Reason: Constipation) Qty: 0 0RF metoprolol tartrate 25 mg Tablet 25 mg PO BID Qty: 0 0RF Continued aspirin 81 MG tablet,chewable 81 mg PO DAILY@0800 atorvastatin 80 mg tablet 80 mg PO QHS Discontinued amlodipine 5 mg Tablet 5 mg PO BID Xarelto 20 mg Tablet 20 mg PO DAILY Rx Instructions: must administer with evening meal telmisartan [Micardis] 80 mg tablet 80 mg PO DAILY No Action nitroglycerin 0.4 mg tablet, sublingual 0.4 mg SUBLINGUAL Q5-15M PRN (Reason: Chest Pain) Other Ambulatory Orders: 30 Day Event Recorder Preventi (Urgent) Timeframe: 1 Day Facility: [facility] - Location: Cardiovascular Services Ordered By: Dr. Peg Aviles Referrals / Follow Up: Shashank Hahn MD [Med Staff - Active Staff] - Within 1 Month William Jacobs MD [Med Staff - Active Staff] - Within 2 Weeks Arcenio Jones MD [Primary Care Provider] - Wili Monet MD [Non-Staff -Ordering Privileges] - Within 3 Months Fran Cowan DO [Med Staff - Active Staff] - Within 1 Month (for capsule endoscopy) Disposition Disposition (needs filled in before D/C Order can be placed): Snf Facility Charges/Coding Visit Charges Inpatient E&M: 55851 SNF Disch >30 Min
[2023-02-11 12:35] VITALS: BP 121/65; PULSE 51; RESP 17; TEMP 36.7; O2SAT 94
--- NOTE | 2023-02-11 14:01 | NURSING ---
Report called to [facility] on TCU. Room is currently being cleaned. TCU will call when room is ready.
--- NOTE | 2023-02-11 14:50 | PHA.DC.MR ---
Pharmacy Service has performed discharge medication reconciliation for this patient. The patient's discharge medication list was reviewed for discrepancies and discrepancies were resolved. Home Medications aspirin 81 mg chewable tablet 81 mg PO DAILY@0800 HEALTH MAINTENANCE 05/13/14 nitroglycerin 0.4 mg sublingual tablet 0.4 mg sublingual Q5-15M PRN Chest Pain 09/25/19 atorvastatin 80 mg tablet 80 mg PO QHS CHOLESTEROL 02/06/23 acetaminophen 325 mg tablet 650 mg PO Q6H PRN PRN Pain 1-10 Or Fever>100.7 #0 tabs 02/11/23 losartan 50 mg tablet 50 mg PO DAILY #0 tabs 02/11/23 metoprolol tartrate 25 mg tablet 25 mg PO BID #0 tabs 02/11/23 sennosides 8.6 mg-docusate sodium 50 mg tablet (Stool Softener-Stimulant Laxative) 2 tab PO BID PRN PRN Constipation #0 tabs 02/11/23
[2023-02-11 15:25] VITALS: BMI 21.4
== END 2023-02-11 15:07 | disposition skilled nursing facility (03) | DRG 377 ==
LOC: ED 13:23 → PCU 13:52
PROVIDERS: Anesthesiology; Internal Medicine Gastroenterology; Admitting Provider Internal Medicine; Emergency Provider Emergency Medicine; PCP Family Medicine; Visit Provider Internal Medicine
PROC: 0DJ08ZZ Inspection of Upper Intestinal Tract, Via Natural or Artificial Opening Endoscopic (ICD-10-PCS; CPT 43235; principal; 2023-02-07 12:55)
PROC: 0DJD8ZZ Inspection of Lower Intestinal Tract, Via Natural or Artificial Opening Endoscopic (ICD-10-PCS; CPT 45378; principal; 2023-02-08 16:50)
DX: K92.2 Gastrointestinal hemorrhage, unspecified (principal); I63.512 Cerebral infarction due to unspecified occlusion or stenosis of left middle cerebral artery; I69.351 Hemiplegia and hemiparesis following cerebral infarction affecting right dominant side; D62 Acute posthemorrhagic anemia; I73.9 Peripheral vascular disease, unspecified; I77.9 Disorder of arteries and arterioles, unspecified; K31.819 Angiodysplasia of stomach and duodenum without bleeding; I10 Essential (primary) hypertension; I25.10 Atherosclerotic heart disease of native coronary artery without angina pectoris; E78.5 Hyperlipidemia, unspecified; D50.9 Iron deficiency anemia, unspecified; K29.70 Gastritis, unspecified, without bleeding; I69.320 Aphasia following cerebral infarction; I65.22 Occlusion and stenosis of left carotid artery; E87.6 Hypokalemia; I25.5 Ischemic cardiomyopathy; I65.23 Occlusion and stenosis of bilateral carotid arteries; K57.30 Diverticulosis of large intestine without perforation or abscess without bleeding; K20.90 Esophagitis, unspecified without bleeding; I87.2 Venous insufficiency (chronic) (peripheral); W19.XXXA Unspecified fall, initial encounter; I25.2 Old myocardial infarction; R13.0 Aphagia; Z79.01 Long term (current) use of anticoagulants; Z79.82 Long term (current) use of aspirin; Z95.5 Presence of coronary angioplasty implant and graft
CPT/HCPCS: 36415; 70450; 70496; 70498; 70551; 71045; 73060; 73502; 74176; 80048; 80053; 80061; 81001; 82274; 83735; 84100; 85014; 85018; 85025; 85610; 85730; 86850; 86900; 86901; 86920; 86922; 87426; 92507; 92523; 93005; 93306; 93880; 94762; 97162; 97166; 99285; J7030; J7040; J7120; P9016; P9612; Q9967; A4216; J2405; J3490

== ENCOUNTER 2023-02-11 15:17 | Inpatient (IN) | payer MEDICARE, SELFPAY ==
[2023-02-11 15:20] VITALS: BP 136/62; PULSE 60; RESP 19; TEMP 36.1; O2SAT 95
[2023-02-11 15:46] VITALS: BMI 20.8
--- NOTE | 2023-02-11 16:12 | NURSING ---
IVs in right AC and left upper arm were removed at 1613 by Wally Rice RN. Patient tolerated task well. No bleeding noted.
--- NOTE | 2023-02-11 16:27 | NURSING ---
Explained to pt that I need to consult wound nurse to assess RT ankle ulcer, (pt refused, significant other ok with it) since we do not carry the triticum vulgare cream, a product from [place] that is [place]. mepilex placed on area for now until assessed by wound nurse.
[2023-02-11 18:26] VITALS: BP 134/67; PULSE 62
[2023-02-11] MEDS: Metoprolol Tartrate 25 MG Tablet PO (18:26)
[2023-02-11 18:57] VITALS: PULSE 80; RESP 16; O2SAT 93
--- NOTE | 2023-02-11 19:03 | HP.PCM_ITS ---
HPI - General General Date of Admission: 02/11/23 Date of Service: 02/11/23 Chief Complaint: Here for rehabilitation prior to transfer to . HPI Narrative 02/06/2023 ZARA FRANCISCO, is a 57 Female who presents to [facility] Emergency Department with weakness. 02/06/2023 EKG normal sinus rhythm, nonspecific ST-T changes. Patient lives in [place] with her significant other. 1 month ago, she had a stroke, was told she has critical carotid artery stenosis, started on Xarelto for unknown reason. Patient came back to [facility] because she wanted to have carotid artery endarterectomy in the [facility]. Her only deficit after stroke was expressive aphasia. Fell at home. Dysarthria since stroke, left upper extremity pain. Severe carotid artery stenosis. CT brain negative, Chest X-ray negative, X-ray pelvis, right hip negative, X- ray left humerus negative. Hemoglobin 5.0, Hematocrit 15.9, K 3.2, urinalysis negative. Stool guaiac positive. 3 units PRBC ordered, K repleted intravenously. 02/06/2023 Admit to Hospital. Hold aspirin, hold Xarelto, PPI drip, consult GI, transfuse 3 units PRBC for acute anemia/GI bleed. CTA head/neck, MRI brain, Echo, PT/OT/ST to rule out stroke, new right sided weakness. 02/06/2023 Echo EF 70%. 02/06/2023 MRI brain showed new left sided stroke. GI recommends EGD/colonoscopy. 02/07/2023 NIHSS 9. Hemoglobin 10.4 after 3 units PRBC transfusion. KCL 20meq IV for hypokalemia. PT/OT/ST for stroke. Consult Cardiology for clearance for bilateral carotid artery stenosis surgery with Dr. Jacobs. 02/07/2023 Dr. 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 02/08/[address] abdomen/pelvis negative for etiology for GI bleeding. Hemoglobin stable. Stop Protonix because EGD negative for obvious bleeding. Cardiology cleared patient for left carotid endarterectomy with Dr. Jacobs 02/11/2023. 02/08/2023 Dr. Cowan colonoscopy showed diverticulosis. 02/09/2023 Sudden dense right hemiplegia. NIHSS 10. Restarted aspirin, hold Xarelto indefinitely. Left carotid artery occluded, surgery not recommended. 02/10/2023 PT/OT/ST for SNF. 02/11/2023 Admit to TCU with debility, here for rehabilitation, strengthening, prior to transfer to when bed available. [facility] Medical History Atherosclerotic heart disease of [place] coronary artery without angina pectoris Encounter for screening for COVID-19 Essential hypertension Expressive aphasia H/O ischemic left MCA stroke History of [place] (myocardial infarction) Hyperlipidemia Home Medications aspirin 81 mg chewable tablet 81 mg PO DAILY@0800 HEALTH MAINTENANCE 05/13/14 [History Last Taken 02/06/23] nitroglycerin 0.4 mg sublingual tablet 0.4 mg sublingual Q5-15M PRN Chest Pain 09/25/19 [History Last Taken Unknown] atorvastatin 80 mg tablet 80 mg PO QHS CHOLESTEROL 02/06/23 [History Last Taken Unknown] acetaminophen 325 mg tablet 650 mg PO Q6H PRN PRN Pain 1-10 Or Fever>100.7 #0 tabs 02/11/23 [Rx Last Taken Unknown] losartan 50 mg tablet 50 mg PO DAILY blood pressure 02/11/23 [History Last Taken Unknown] metoprolol tartrate 25 mg tablet 25 mg PO BID blood pressure 02/11/23 [History Last Taken Unknown] sennosides 8.6 mg-docusate sodium 50 mg tablet (Stool Softener-Stimulant Laxative) 2 tab PO BID PRN PRN Constipation #0 tabs 02/11/23 [Rx Last Taken Unknown] Allergy/AdvReac Type Severity Reaction Status Date / Time celecoxib [From Celebrex] Allergy Severe Other Verified 01/28/23 10:24 isosorbide mononitrate Allergy Severe Other Verified 01/28/23 10:24 [From Imdur] meloxicam [From Mobic] Allergy Severe Nausea/Vom/ Verified 01/28/23 10:24 Diarrhea Family History Father Hypertension Cancer Mother Hypertension Uncle Diabetes Grandfather Cancer Grandmother Cancer Surgical History H/O: hysterectomy History of cholecystectomy History of coronary artery stent placement (02/17/11) History of excision of lamina of cervical vertebra for decompression of spinal cord History of left heart catheterization Social History (Updated 02/11/23 @ 19:[address] Pk Bruce MD) household members: significant other Smoking Status: Current every day smoker tobacco type: cigarettes alcohol intake: never substance use type: does not use ROS Review of Systems ROS Unobtainable: other Details: expressive aphasia. Constitutional Constitutional: Denies chills, fever(s) or weight gain ENT HEENT: Denies headache(s), nasal congestion or nasal discharge Cardiovascular Cardiovascular: Denies chest pain or palpitations Respiratory/Chest Respiratory/Chest: Denies cough, excessive phlegm production or shortness of breath with exertion Gastrointestinal Gastrointestinal: Denies abdominal pain, nausea or vomiting Genitourinary Genitourinary: Denies dysuria Musculoskeletal Musculoskeletal: Denies joint pain or joint swelling Integumentary Integumentary: Denies rash or wounds Neurologic Neurologic: Reports abnormal gait, abnormal movements, abnormal speech and focal weakness; Denies numbness or tingling Psychiatric Psychiatric: Denies anxiety, auditory hallucinations, depression, homicidal ideation or suicidal ideation Vital Signs Vital Signs Vital Signs: 02/11/23 15:20 02/11/23 18:26 Temperature 97 F L Temperature Source Oral Pulse Rate 60 62 Respiratory Rate 19 H Blood Pressure 136/62 H 134/67 H Blood Pressure Mean 86 Blood Pressure Source Monitor Blood Pressure Position Semi-Fowlers Blood Pressure Location Left Arm Pulse Ox 95 Oxygen Delivery Method Room Air Weight Weight: 62.233 kg Body Mass Index (BMI) 20.8 Physical Exam Const alert General Appearance: cooperative HEENT normocephalic Eyes PERRL and EOMs intact bilaterally Neck supple, no JVD and no carotid bruits Resp normal respiratory effort, normal air movement and clear to auscultation bila terally Cardio regular rate and regular rhythm GI normal to inspection, nondistended, normoactive bowel sounds, non-tender and non-distended Extremity normal capillary refill General Extremity: Negative for edema Skin no rashes or lesions noted General Skin Exam: no breakdown Neuro Neuro Narrative: Dense right upper extremity hemiplegia, moderate left lower extremity hemiparesis. Speech: speech abnormal Psych affect normal Appearance: appropriate Assessment & Plan Assessment/Plan (1) Debility: (2) Acute anemia: (3) GI bleed: (4) Hypokalemia: (5) Acute stroke due to ischemia: (6) Right sided weakness: (7) Carotid artery stenosis: (8) Atherosclerotic heart disease of [place] coronary artery without angina pectoris: (9) Essential hypertension: (10) GERD (gastroesophageal reflux disease): (11) Anxiety: (12) Hyperlipidemia: PLAN: Plan 57 year old female with below past medical history hospitalized for acute anemia secondary to gastrointestinal bleed, complicated by acute left MCA stroke secondary to ischemia, complicated by occluded left carotid artery, hypokalemia, admitted to TCU with debility, here for rehabilitation, strengthening, prior to discharge to when bed available. * Debility - PT/OT/ST. * Pain - Tylenol 1000mg q6h prn pain (1-10). * Bowel - senna/colace 1 tablet bid, Dulcolax 10mg pr x 1 prn. * Adult immunization - Administer pneumonia vaccine, covid19 vaccine, flu vaccine as appropriate. * DVT prophylaxis - Hold, GI bleed. * Stroke - Aspirin 81mg daily. * Hyperlipidemia - Atorvastatin 80mg QHS. * Hypertension - Metoprolol 25mg bid, Losartan 50mg daily. * Coronary artery disease - Metoprolol 25mg bid, Losartan 50mg daily, Aspirin 81mg daily, NTG 0.4mg sl q5m prn.
[2023-02-11] MEDS: Atorvastatin Calcium 80 MG Tablet PO (20:43)
--- NOTE | 2023-02-11 21:44 | PCA ---
pt was provided Hs care and was changed around 2100
[2023-02-12 05:18] VITALS: BP 100/53; PULSE 55
[2023-02-12 05:52] LABS: Absolute Lymphocyte Count 1.13 X10^3/uL (0.83-4.51); Absolute Neutrophil Count 5.9 X10^3/uL (2.0-7.7); Basophil# 0.06 X10^3/uL; Basophil% 0.8 % (0-1); Eosinophils% 2.5 % (0-5); Hematocrit 33.6 % (37-47); Hemoglobin 10.7 g/dL (12.0-15.0); Lymphocyte # 1.13 X10^3/ul (0.83-4.51); Lymphocyte % 14.2 % (19-41); Mean Corp Hgb Conc 31.8 g/dL (32-36); Mean Corpuscular Hgb 28.4 pg (27.0-32.0); Mean Corpuscular Volume 89.1 fL (81-99); Mean Platelet Vol. 11.1 fl (6.2-12.0); Monocyte% 7.5 % (0-10); NRBC Flagged by Analyzer 0 % (0-5); Neutrophil # 5.93 X10^3/uL (2.7-7.7); Neutrophil % 74.5 % (47-70); Platelet Count 489 K/mm3 (150-450); RBC Distribution Width CV 14.7 % (11.6-14.6); RBC Distribution Width SD 47.8 fl (35.1-43.9); Red Blood Count 3.77 M/mm3 (4.2-5.4)
[2023-02-12 06:21] LABS: Anion Gap 6 (5-15); BUN 24 mg/dL (7-18); BUN/Creat Ratio 37.4 RATIO (10-20); Calcium,Total 9.3 mg/dL (8.5-10.1); Chloride 108 mmol/L (98-107); Creatinine, Serum 0.64 mg/dL (0.55-1.02); EST Glomerular Filtration Rate 101 mL/min (>60); Est Glom Filt Rate - Afr Amer 123 mL/min (>60); Estimated Creatinine Clearance 95.28 ml/min; Glucose 112 mg/dL (74-106); Potassium 3.5 mmol/L (3.5-5.1); Sodium Level 141 mmol/L (136-145)
[2023-02-12 07:53] VITALS: PULSE 56
[2023-02-12] MEDS: Aspirin 81 MG TAB.CHEW PO (07:54)
[2023-02-12 09:48] VITALS: BMI 20.8
[2023-02-12 10:00] VITALS: BP 156/68; PULSE 64; RESP 16; TEMP 36.6; O2SAT 95
--- NOTE | 2023-02-12 10:20 | NURSING ---
This nurse was charting when SCARRER came and said that patient was on the floor. This nurse had just checked in on patient a few minutes prior and she was working with speech therapy, was also in room. Patient was found sitting upright on the floor facing her recliner. states that he put the call light on and we took to long to get there, so he decided to try to transfer her to bed when patient fell. He denies her hitting her head and patients vitals are stable. Patient was helped back to bed with 2 assist transfer.
[2023-02-12] MEDS: Tuberculin,Purif.prot.deriv. 50 TU/ML Vial 0.1 ML ID (12:02)
--- NOTE | 2023-02-12 14:07 | WOUNDNOTE ---
wound photo: right medial ankle
--- NOTE | 2023-02-12 14:11 | PCM.PN.DRR ---
TCU RX Drug Regimen Review Subjective: TCU Admission. 57 YOF presented to ER with weakness. Hospitalized for acute anemia secondary to gastrointestinal bleed, complicated by acute left MCA stroke secondary to ischemia, complicated by occluded left carotid artery, hypokalemia. Admitted to TCU with debility for strengthening and rehabilitation prior to discharge to . Objective: Allergies celecoxib [From Celebrex] Allergy (Severe, Verified 01/28/23 10:24) Other isosorbide mononitrate [From Imdur] Allergy (Severe, Verified 01/28/23 10:24) Other meloxicam [From Mobic] Allergy (Severe, Verified 01/28/23 10:24) Nausea/Vom/Diarrhea Current Medications Generic Name Dose Route Start Last Admin Trade Name Freq PRN Reason Stop Dose Admin Acetaminophen 1,000 mg 02/11/23 19:37 Acetaminophen 500 Mg Tablet PO Q6H PRN PRN Pain Score 1-10 Aspirin 81 mg 02/12/23 08:00 02/12/23 07:54 Aspirin 81 Mg Tab.Chew PO 81 mg DAILYCM ERIK Administration Atorvastatin Calcium 80 mg 02/11/23 22:00 02/11/23 20:43 Atorvastatin Calcium 80 Mg Tablet PO 80 mg QHS ERIK Administration Bisacodyl 10 mg 02/11/23 19:36 Bisacodyl 10 Mg Suppository RC X1 PRN Constipation Losartan Potassium 50 mg 02/12/23 06:00 02/12/23 07:53 Losartan Potassium 50 Mg Tablet PO Not Given DAILY ERIK Metoprolol Tartrate 25 mg 02/11/23 18:00 02/12/23 07:53 Metoprolol Tartrate 25 Mg Tablet PO Not Given BID ERIK Nitroglycerin 0.4 mg 02/11/23 15:43 Nitroglycerin (Inpatient Use) 0.4 Mg Tab.Subl SL Q5M PRN CARDIAC/CHEST PAIN Senna/Docusate Sodium 1 tablet 02/12/23 06:00 02/12/23 05:19 Senna/Docusate Sodium 1 Tablet PO Not Given BID ERIK Tuberculin PPD 0.1 ml 02/19/23 10:00 Tuberculin,Purif.Prot.Deriv. 50 Tu/Ml Vial ID 02/19/23 10:01 X1 ONE Problem List (Last Reviewed 02/11/23 @ 19:[address] Pk Bruce MD) Hyperlipidemia (Acute) Anxiety (Acute) GERD (gastroesophageal reflux disease) (Acute) Acute anemia (Acute) Debility (Acute) Acute stroke due to ischemia (Acute) Hypokalemia (Acute) GI bleed (Acute) Right sided weakness (Acute) Carotid artery stenosis (Chronic) Essential hypertension (Chronic) Atherosclerotic heart disease of [place] coronary artery without angina pectoris (Chronic) Vital Signs Temp Pulse Resp BP Pulse Ox O2 Del Method 97.9 F 64 16 156/68 H 95 Room Air 02/12/23 10:00 02/12/23 10:00 02/12/23 10:00 02/12/23 10:00 02/12/23 10:00 02/12/23 10:00 Oxygen Delivery Method Room Air Weight: 62.199 kg Body Mass Index (BMI) 20.8 Sodium 141 mmol/L (136-145) 02/12/23 05:25 Potassium 3.5 mmol/L (3.5-5.1) 02/12/23 05:25 Chloride 108 mmol/L (98-107) H 02/12/23 05:25 Carbon Dioxide 27.0 mmol/L (21.0-32.0) 02/12/23 05:25 Anion Gap 6 (5-15) 02/12/23 05:25 BUN 24 mg/dL (7-18) H 02/12/23 05:25 Creatinine 0.64 mg/dL (0.55-1.02) 02/12/23 05:25 Est GFR (MDRD) Af Amer 123 mL/min (>60) 02/12/23 05:25 Est GFR (MDRD) Non-Af 101 mL/min (>60) 02/12/23 05:25 BUN/Creatinine Ratio 37.4 RATIO (10-20) H 02/12/23 05:25 Glucose 112 mg/dL (74-106) H 02/12/23 05:25 Assessment/Plan: 1. Pain: acetaminophen 1000mg PO Q6H PRN pain 1-10. Resident has not had any doses. Please continue to monitor for increased pain and PRN usage. 2. Bowel: senna/docusate 1T PO BID and bisacodyl 10mg RC x1 PRN constipation. Resident has not had any PRN doses. Please continue to monitor for constipation (last documented bowel movement 02/10) and PRN usage. 3. Hypertension/CAD/stroke: metoprolol tartrate 25mg PO BID, losartan 50mg PO daily, aspirin 81mg PO daily and nitroglycerin 0.4mg SL Q5M PRN chest pain. No PRN doses given. Please continue to monitor BP (last 156/68), HR (last 64), S/S of bleeding, hemoglobin (last 10.7g/dL), renal function and PRN usage. 4. Hyperlipidemia: atorvastatin 80mg PO QHS. Please continue to monitor lipid panel (last 02/07/23), LFTs (last 02/08/23) and muscle pain. Assessment/Plan for indications treated with psychotropic medications: None Medical chart and medication regimen reviewed. The following medication irregularities or issues were identified: None Date of Note:: 02/12/23
[2023-02-12 16:00] VITALS: BP 119/70; PULSE 63; RESP 15; TEMP 37; O2SAT 97
--- NOTE | 2023-02-12 17:30 | CASEMGMT ---
Social Work SW completed chart review for assessment. Pt has severe expressive and receptive aphasia. and friend outside of this worker's office discussing insurance and DC plans, having questions. SW approached both parties and introduced self and role. Offered to assist with answering questions. Both welcomed conversation. SW educated to Medicare benefit and no secondary insurance listed. stated pt has Medicaid as secondary, and has been on Medicare disability for 11 years. SW requested to provide this worker with LETY information, but also educated to TCU not being in-network with LETY. Educated to day 21 is 03/13 and copays will begin. stated he was understanding pt would be transferred to [facility] on 02/15 since there were no beds available for admission. SW offered to discuss with IDT and RU service center coordinator. *(IDT discussed in UR this date that pt is not appropriate for RU transfer at this time, but no conversations have been had yet with )*. SW educated to RU Medicare benefit, providing a LOS in it
--- NOTE | 2023-02-12 17:42 | CASEMGMT ---
Social Work SW completed chart review for assessment. Pt has severe expressive and receptive aphasia. and friend outside of this worker's office discussing insurance and DC plans, having questions. SW approached both parties and introduced self and role. Offered to assist with answering questions. Both welcomed conversation. SW educated to Medicare benefit and no secondary insurance listed. stated pt has Medicaid as secondary, and has been on Medicare disability for 11 years. SW requested to provide this worker with LETY information, but also educated to TCU not being in-network with LETY. Educated to day 21 is 03/13 and copays will begin. stated he was understanding pt would be transferred to [facility] on 02/15 since there were no beds available for admission. SW offered to discuss with IDT and RU physician support coordinator. *(IDT discussed in UR this date that pt is not appropriate for RU transfer at this time, but no conversations have been had yet with )*. SW educated to RU Medicare benefit, providing a LOS, and if the pt is not ready to DC home, then pt would have to transfer back to TCU or another SNF. Educated to multiple change in environments and the impact that potentially has on the pt (setbacks with progress and increase in confusion). SW educated pt must meet criteria for RU as well. Offered for pt to remain in TCU for initial 20 days, for example, to allow improve under 100% coverage of Medicare, then on day 21, potentially transfer to [facility] for intensive therapy, and if pt is unable to return home at the end of RU stay, to transfer to SNF. Also offered once day 21 arrives, for pt to transfer to SNF that does accept LETY for copay coverage. SW reminded hus/friend, all above is subject to change based on meeting requirements for insurance and unit criteria. expressed understanding and noted pt is fighting participating in therapy fully, so 3 hrs of therapy may be too much for pt at this time. did vocalize pt is appearing to participate in therapy better when is not present. SW praised acknowledgement and offered for to encourage pt to participate in therapy prior to session, then leave during session and return afterward. agreed. Throughout discussion, stated pt and he are not legally . They have been together for about two years. Pt has lived in [place] for 9 years; has lived with her for those two years. Currently, is staying with pt's mother in mobile home, that is small and not ideal for pt to live in. is open to a SNF transfer if pt cannot DC home. SW educated to SNF options and for skilled and nonskilled HHC assistance if pt returns to community. SW educated to POC mtg next week for IDT and provided this worker's contact information for further questions. and friend expressed appreciation for time and assistance. SW to follow up with IDT on pt remaining in TCU as able, then revisiting qualification to transfer to RU or further DC planning at Day 21. Will continue to follow. SIRI ManeW
[2023-02-12 19:53] VITALS: PULSE 57
[2023-02-12] MEDS: Atorvastatin Calcium 80 MG Tablet PO (19:53)
[2023-02-13 05:08] VITALS: BP 103/61; PULSE 63
[2023-02-13] MEDS: Losartan Potassium 50 MG Tablet PO (05:08)
[2023-02-13] MEDS: Senna/Docusate Sodium 1 Tablet PO ×2 (05:08→17:57)
[2023-02-13] MEDS: Metoprolol Tartrate 25 MG Tablet PO ×2 (05:08→17:57)
[2023-02-13] MEDS: Aspirin 81 MG TAB.CHEW PO (08:06)
--- NOTE | 2023-02-13 09:40 | NS ---
Provided copy of daily specials/first choice menu w/ instructions on how to order. Res appreciative of increased choices.
--- NOTE | 2023-02-13 11:31 | NURSING ---
Asset Protection Detective Note; Activity Asset: Keo Green is independent in her choice of daily activities. She will need extra social visits for social, mental and physical well-being. Her significant other Manny stated she prefers to be called Amira and stated she has a difficult time reading and using her right hand after the stroke. He will visit w/her daily and bring anything she may need.
[2023-02-13] MEDS: Acetaminophen 500 MG Tablet 1000 MG PO ×2 (11:39→21:30)
[2023-02-13 13:59] VITALS: BP 107/55; PULSE 53; RESP 16; TEMP 35.9; O2SAT 98
[2023-02-13 17:57] VITALS: PULSE 53
[2023-02-13] MEDS: Neuropathy Pain Cream Compound 60 CLICK TUBE TOPICAL (17:57)
[2023-02-13] MEDS: Atorvastatin Calcium 80 MG Tablet PO (21:30)
--- NOTE | 2023-02-13 21:56 | PCA ---
WEB UI SOFTWARE ENGINEER went into to check on patient and asked if they would like to get cleaned up for bed and help with HS care. Patient refused stating they would like to take care of that in the morning
[2023-02-14 05:43] VITALS: PULSE 62
[2023-02-14] MEDS: Senna/Docusate Sodium 1 Tablet PO (05:43)
[2023-02-14] MEDS: Acetaminophen 500 MG Tablet 1000 MG PO ×2 (05:43→21:30)
[2023-02-14] MEDS: Metoprolol Tartrate 25 MG Tablet PO ×2 (05:43→17:24)
[2023-02-14] MEDS: Losartan Potassium 50 MG Tablet PO (05:43)
[2023-02-14] MEDS: Neuropathy Pain Cream Compound 60 CLICK TUBE TOPICAL ×2 (05:43→17:24)
[2023-02-14 05:48] VITALS: BP 103/67; PULSE 62; RESP 15; TEMP 36.1; O2SAT 96
[2023-02-14] MEDS: Aspirin 81 MG TAB.CHEW PO (08:00)
--- NOTE | 2023-02-14 11:52 | NS ---
Call from nursing staff- Res now agreeable to Ensure Clear w/ meals. Nursing to add to diet order. Pal Nichols MS, RDN, LD
[2023-02-14 15:19] VITALS: BP 114/50; PULSE 53; RESP 20; TEMP 36.6; O2SAT 96
[2023-02-14 17:24] VITALS: BP 104/57; PULSE 53
[2023-02-14 21:15] VITALS: PULSE 54; RESP 16; O2SAT 98
[2023-02-14] MEDS: Atorvastatin Calcium 80 MG Tablet PO (22:58)
[2023-02-15 06:01] VITALS: BP 99/59; PULSE 51
[2023-02-15] MEDS: Aspirin 81 MG TAB.CHEW PO (07:55)
[2023-02-15 15:46] VITALS: BP 128/70; PULSE 108; RESP 16; TEMP 36.8
[2023-02-15] MEDS: Acetaminophen 500 MG Tablet 1000 MG PO (17:45)
[2023-02-15 17:46] VITALS: BP 128/73; PULSE 55
[2023-02-15] MEDS: Metoprolol Tartrate 25 MG Tablet PO (17:46)
[2023-02-15] MEDS: Neuropathy Pain Cream Compound 60 CLICK TUBE TOPICAL (17:47)
[2023-02-15] MEDS: Atorvastatin Calcium 80 MG Tablet PO (20:20)
--- NOTE | 2023-02-15 22:32 | PCA ---
This SEARCH DIRECTOR offered to help patient with HS care and patient refused stating they would like to wait until the morning.
[2023-02-16 05:30] VITALS: BP 136/67; PULSE 55
[2023-02-16] MEDS: Losartan Potassium 50 MG Tablet PO (05:30)
[2023-02-16] MEDS: Metoprolol Tartrate 25 MG Tablet PO (05:30)
[2023-02-16] MEDS: Aspirin 81 MG TAB.CHEW PO (08:00)
[2023-02-16 12:43] VITALS: BP 116/56; PULSE 50; RESP 16; TEMP 35.5; O2SAT 96
[2023-02-16] MEDS: Neuropathy Pain Cream Compound 60 CLICK TUBE TOPICAL ×2 (16:04→19:50)
[2023-02-16 17:55] VITALS: PULSE 50
[2023-02-16] MEDS: Atorvastatin Calcium 80 MG Tablet PO (19:51)
[2023-02-16 21:00] VITALS: PULSE 58; RESP 16; O2SAT 97
--- NOTE | 2023-02-16 21:38 | PCA ---
Addendum entered by Jeff Hayden 02/17/23 01:26: When rounding this HEATING TECHNICIAN went to check on patient and noticed bed pad was thrown on the floor. patient was in bed with no brief and bed was wet. HEATING TECHNICIAN helped patient get cleaned up. sheets were changed and patient was washed up and put in a dry gown and brief. Original Note: This HEATING TECHNICIAN was walking by patient room and witnessed patient remove brief in bed and throw it in trash can. This HEATING TECHNICIAN along with the other HEATING TECHNICIAN entered room and offered to help patient put on a new clean brief . Patient stated very loudly NO offered again explaining the importance of wearing a brief since patient is incontinent and wearing a brief would help keep the bed dry and getting cleaned would help with skin break down. Again patient responded with NO NO NO, leave me alone getting louder each time. HEATING TECHNICIAN did not push the issue any further and made sure patient had call light in reach. Notified nurse.
[2023-02-17] MEDS: Neuropathy Pain Cream Compound 60 CLICK TUBE TOPICAL ×2 (05:34→17:59)
[2023-02-17] MEDS: Senna/Docusate Sodium 1 Tablet PO ×2 (05:35→17:56)
[2023-02-17] MEDS: Losartan Potassium 50 MG Tablet PO (05:35)
[2023-02-17 05:36] VITALS: BP 123/69; PULSE 60
[2023-02-17] MEDS: Metoprolol Tartrate 25 MG Tablet PO ×2 (05:36→17:57)
[2023-02-17] MEDS: Aspirin 81 MG TAB.CHEW PO (08:20)
[2023-02-17 09:55] VITALS: PULSE 55; RESP 16; O2SAT 99
[2023-02-17 13:48] VITALS: BP 117/56; PULSE 55; RESP 16; TEMP 36.5; O2SAT 98
[2023-02-17 17:57] VITALS: BP 117/56; PULSE 55
[2023-02-17] MEDS: Atorvastatin Calcium 80 MG Tablet PO ×2 (20:13→21:33)
[2023-02-18] MEDS: Losartan Potassium 50 MG Tablet PO (05:11)
[2023-02-18] MEDS: Senna/Docusate Sodium 1 Tablet PO (05:11)
[2023-02-18 05:14] VITALS: BP 116/63; PULSE 52
[2023-02-18] MEDS: Metoprolol Tartrate 25 MG Tablet PO (05:14)
[2023-02-18] MEDS: Neuropathy Pain Cream Compound 60 CLICK TUBE TOPICAL ×2 (05:17→16:17)
[2023-02-18] MEDS: Aspirin 81 MG TAB.CHEW PO (07:58)
[2023-02-18] MEDS: Acetaminophen 500 MG Tablet 1000 MG PO ×2 (08:00→17:22)
--- NOTE | 2023-02-18 09:22 | NURSING ---
Landscaper Helper Note; MDS Complete
--- NOTE | 2023-02-18 10:36 | CASEMGMT ---
Social Work Attempted to complete MDS assessment but pt has severe receptive and expressive aphasia and could not verbally accurately answer questions or use cue cards. Staff assessment completed. Sasha Platt, VEHICLE OPERATOR TEAM AUTOMOBILE ASSEMBLER
--- NOTE | 2023-02-18 11:26 | NURSING ---
Offered Covid booster and provided education about vaccine. Patient refuses at this time. at the bedside.
--- NOTE | 2023-02-18 15:19 | NURSING ---
Pt and pt's update of employee testing positive for Covid 19.
[2023-02-18 16:00] VITALS: BP 127/73; PULSE 58; RESP 14; TEMP 37.1; O2SAT 97
[2023-02-18 17:19] VITALS: BP 116/58; PULSE 50
[2023-02-18] MEDS: Atorvastatin Calcium 80 MG Tablet PO (19:55)
[2023-02-18 20:00] VITALS: PULSE 57; RESP 18; O2SAT 98
[2023-02-19 05:39] LABS: Absolute Lymphocyte Count 1.26 X10^3/uL (0.83-4.51); Absolute Neutrophil Count 4.2 X10^3/uL (2.0-7.7); Basophil# 0.07 X10^3/uL; Basophil% 1.1 % (0-1); Eosinophil# 0.26 X10^3/uL; Eosinophils% 4.2 % (0-5); Hematocrit 31.9 % (37-47); Hemoglobin 9.9 g/dL (12.0-15.0); Lymphocyte # 1.26 X10^3/ul (0.83-4.51); Lymphocyte % 20.2 % (19-41); Mean Corpuscular Hgb 27.6 pg (27.0-32.0); Mean Corpuscular Volume 88.9 fL (81-99); Mean Platelet Vol. 11.7 fl (6.2-12.0); Monocyte# 0.43 X10^3/uL; Monocyte% 6.9 % (0-10); NRBC Flagged by Analyzer 0 % (0-5); Neutrophil % 67.3 % (47-70); Platelet Count 323 K/mm3 (150-450); RBC Distribution Width CV 14.1 % (11.6-14.6); RBC Distribution Width SD 45.8 fl (35.1-43.9); Red Blood Count 3.59 M/mm3 (4.2-5.4); White Blood Count 6.2 K/mm3 (4.4-11.0)
[2023-02-19 05:45] VITALS: BP 134/68; PULSE 58
[2023-02-19] MEDS: Losartan Potassium 50 MG Tablet PO (05:46)
[2023-02-19 06:01] LABS: Anion Gap 5 (5-15); BUN 19 mg/dL (7-18); BUN/Creat Ratio 26.9 RATIO (10-20); Calcium,Total 9.3 mg/dL (8.5-10.1); Chloride 110 mmol/L (98-107); Creatinine, Serum 0.71 mg/dL (0.55-1.02); EST Glomerular Filtration Rate 91 mL/min (>60); Est Glom Filt Rate - Afr Amer 110 mL/min (>60); Estimated Creatinine Clearance 85.84 ml/min; Glucose 150 mg/dL (74-106); Potassium 3.6 mmol/L (3.5-5.1); Sodium Level 142 mmol/L (136-145)
[2023-02-19] MEDS: Aspirin 81 MG TAB.CHEW PO (08:27)
[2023-02-19] MEDS: Tuberculin,Purif.prot.deriv. 50 TU/ML Vial 0.1 ML ID (10:59)
[2023-02-19] MEDS: Acetaminophen 500 MG Tablet 1000 MG PO (11:00)
[2023-02-19 14:31] VITALS: BP 113/59; PULSE 61; RESP 16; TEMP 36.6; O2SAT 96
[2023-02-19 15:00] VITALS: BMI 20.1
[2023-02-19 17:09] VITALS: BP 123/62; PULSE 55
[2023-02-19] MEDS: Metoprolol Tartrate 25 MG Tablet PO (17:09)
[2023-02-19] MEDS: Neuropathy Pain Cream Compound 60 CLICK TUBE TOPICAL (17:09)
[2023-02-19] MEDS: Atorvastatin Calcium 80 MG Tablet PO (21:42)
[2023-02-20 06:17] VITALS: BP 115/61; PULSE 55
[2023-02-20] MEDS: Neuropathy Pain Cream Compound 60 CLICK TUBE TOPICAL ×2 (06:17→17:41)
[2023-02-20] MEDS: Losartan Potassium 50 MG Tablet PO (06:17)
[2023-02-20] MEDS: Metoprolol Tartrate 25 MG Tablet PO (06:17)
[2023-02-20] MEDS: Aspirin 81 MG TAB.CHEW PO (07:58)
--- NOTE | 2023-02-20 09:04 | CASEMGMT ---
Social Work IDT met with patient and S.O. for care plan meeting. Discussed patient's progress in PT/OT/ST/SN. Educated to Medicare benefit. Pt has Medicaid secondary and TCU is not in-network with LETY. Day 21 is 4/9. S.O. inquired about transfer to . SW discussed separately with IDT about transfer. Pt is receiving close to 3 hours of therapy of PT/OT/ST currently and Team is not recommending another transition of environment. Goal is for pt to DC home. SW returned to room with pt and and explained above. SW offered for to complete some exercises with pt in the room outside of therapy, if wanted. Encouraged to see how pt progresses in the next week, since DC would be 4/9, and determine if he can care for pt at home with HHC or OP therapy. If not, SW can assist with transition to SNF skilled. expressed understanding. Will continue to follow. Sasha Platt, FINE ARTS PACKER FILM AND VIDEO GRAPHICS DESIGNER
--- NOTE | 2023-02-20 11:01 | NURSING ---
reports he brought in heart monitor and placed it in patient's closet. Explained to and patient that this can be placed once returned home.
[2023-02-20 14:17] VITALS: BP 123/65; PULSE 58; RESP 14; TEMP 36.6; O2SAT 98
--- NOTE | 2023-02-20 14:25 | MDS.RN ---
Information for the mds was obtained from review of the clinical record, interview of resident, staff, and direct observation of resident's care.
--- NOTE | 2023-02-20 15:35 | WOUNDNOTE ---
wound photo: right medial ankle
--- NOTE | 2023-02-20 15:36 | WOUNDNOTE ---
wound photo: right great toe
[2023-02-20] MEDS: Acetaminophen 500 MG Tablet 1000 MG PO (17:46)
[2023-02-20 17:49] VITALS: BP 137/66; PULSE 51
[2023-02-20] MEDS: Atorvastatin Calcium 80 MG Tablet PO (20:24)
[2023-02-20 20:32] VITALS: PULSE 55; RESP 16; O2SAT 97
[2023-02-21] MEDS: Losartan Potassium 50 MG Tablet PO (05:08)
[2023-02-21 05:09] VITALS: BP 138/69; PULSE 52
[2023-02-21] MEDS: Metoprolol Tartrate 25 MG Tablet PO ×2 (05:09→17:42)
[2023-02-21 05:45] LABS: Hematocrit 32.1 % (37-47); Hemoglobin 10.1 g/dL (12.0-15.0)
[2023-02-21] MEDS: Aspirin 81 MG TAB.CHEW PO (07:52)
[2023-02-21 14:15] VITALS: BP 113/54; PULSE 54; RESP 16; TEMP 36.5; O2SAT 98
[2023-02-21] MEDS: Neuropathy Pain Cream Compound 60 CLICK TUBE TOPICAL (16:10)
[2023-02-21 17:42] VITALS: BP 139/57; PULSE 53
[2023-02-21] MEDS: Senna/Docusate Sodium 1 Tablet PO (17:44)
[2023-02-21] MEDS: Atorvastatin Calcium 80 MG Tablet PO (20:11)
[2023-02-21 20:13] VITALS: PULSE 55; RESP 16; O2SAT 97
--- NOTE | 2023-02-21 20:26 | PCA ---
DENTAL CERAMIST checked patient on rounds and patient denied needing any help at this time. offered to help patient get ready for bed and patient stated they were ok and did not wish to get washed at this time.
[2023-02-22 05:02] VITALS: BP 132/63; PULSE 56
[2023-02-22] MEDS: Metoprolol Tartrate 25 MG Tablet PO (05:02)
[2023-02-22] MEDS: Losartan Potassium 50 MG Tablet PO (05:02)
[2023-02-22] MEDS: Aspirin 81 MG TAB.CHEW PO (08:12)
[2023-02-22] MEDS: Neuropathy Pain Cream Compound 60 CLICK TUBE TOPICAL ×2 (08:13→18:31)
--- NOTE | 2023-02-22 14:42 | CASEMGMT ---
Social Work SO presented to this worker's office with questions. SO inquired about pt complete advanced directives. SW explained since pt is unable to effectively communicate verbally or written, what her wishes are, advanced directives are not able to be completed. Educated to Next of Kin is pt's mother. Educated to guardianship, if SO would like to pursue that. SO asked about further information. SW provided guardianship application and Probate Court website. SW also unsure about legality since pt and SO technically live in [place]. MCKENNA offered for Dr to complete expert evaluation if SO would like to pursue guardianship. SO appreciative. Discussed DC plans. SO confirmed he will take pt home on 03/03 with [email or web address] PT/OT/ST. No DME needs. MCKENNA provided resources for handrails, grab bars and ramps, per SO request. Faxed referral to [email or web address] PT/OT/ST. Plan: DC home with mother and SO 03/03, [email or web address] PT/OT/ST SIRI ManeW
[2023-02-22 14:58] VITALS: BP 103/51; PULSE 62; RESP 16; TEMP 36.1; O2SAT 99
--- NOTE | 2023-02-22 15:04 | DS.PCM_ITS ---
Providers Date of Admission: 02/11/23 Primary Care Physician: Dr. Arcenio Jones MD Consultations 02/11/23 16:23 Consult: Onc/Wound/control inspector Routine Comment: Reason for Consult:: venous ulcer Right medial ankle Comments:: using triticum vulgare cream to wound, not US product 02/17/23 17:52 Consult: Onc/Wound/control inspector Routine Comment: Reason for Consult:: R Great Toe infection Reason For Visit: GI BLEED,STROKE Diagnosis Discharge Diagnosis (1) Debility: Status: Acute Code(s): R53.81 - Other malaise (2) Acute anemia: Status: Acute Code(s): D64.9 - Anemia, unspecified (3) GI bleed: Status: Resolved Code(s): K92.2 - Gastrointestinal hemorrhage, unspecified (4) Hypokalemia: Status: Resolved Code(s): E87.6 - Hypokalemia (5) Acute stroke due to ischemia: Status: Acute Code(s): I63.9 - Cerebral infarction, unspecified (6) Right sided weakness: Status: Acute Code(s): R53.1 - Weakness (7) Carotid artery stenosis: Status: Inactive Code(s): I65.29 - Occlusion and stenosis of unspecified carotid artery (8) Atherosclerotic heart disease of [place] coronary artery without angina pectoris: Status: Chronic Code(s): I25.10 - Atherosclerotic heart disease of [place] coronary artery without angina pectoris (9) Essential hypertension: Status: Inactive Code(s): I10 - Essential (primary) hypertension (10) GERD (gastroesophageal reflux disease): Status: Acute Code(s): K21.9 - Gastro-esophageal reflux disease without esophagitis (11) Anxiety: Status: Acute Code(s): F41.9 - Anxiety disorder, unspecified (12) Hyperlipidemia: Status: Acute Code(s): E78.5 - Hyperlipidemia, unspecified Plan 57 year old female with below past medical history hospitalized for acute anemia secondary to gastrointestinal bleed, complicated by acute left MCA stroke secondary to ischemia, complicated by occluded left carotid artery, hypokalemia, admitted to TCU with debility, here for rehabilitation, strengthening, prior to discharge to when bed available. * Debility - PT/OT/ST. * Pain - Tylenol 1000mg q6h prn pain (1-10). * Bowel - senna/colace 1 tablet bid, Dulcolax 10mg pr x 1 prn. * Adult immunization - Administer pneumonia vaccine, covid19 vaccine, flu vaccine as appropriate. * DVT prophylaxis - Hold, GI bleed. * Stroke - Aspirin 81mg daily. * Hyperlipidemia - Atorvastatin 80mg QHS. * Hypertension - Metoprolol 25mg bid, Losartan 50mg daily. * Coronary artery disease - Metoprolol 25mg bid, Losartan 50mg daily, Aspirin 81mg daily, NTG 0.4mg sl q5m prn. Medications at Discharge Home Medications aspirin 81 mg chewable tablet 81 mg PO DAILY@0800 HEALTH MAINTENANCE 05/13/14 atorvastatin 80 mg tablet 80 mg PO QHS CHOLESTEROL 02/06/23 acetaminophen 500 mg tablet 1,000 mg PO Q6H PRN PRN Pain Score 1-10 #0 tabs 02/22/23 losartan 50 mg tablet 50 mg PO DAILY 30 days #30 tabs 02/22/23 metoprolol tartrate 25 mg tablet 25 mg PO BID 30 days #60 tabs 02/22/23 nitroglycerin 0.4 mg sublingual tablet 0.4 mg sublingual Q5M PRN Cardiac/Chest Pain 30 days #30 tabs 02/22/23 Hospital Course Operations None Procedures None Summary of Care Provided Minutes Spent on Discharge: 35 Hospital Course: 57 year old female with below past medical history hospitalized for acute anemia secondary to gastrointestinal bleed, complicated by acute left MCA stroke secondary to ischemia, complicated by occluded left carotid artery, hypokalemia, admitted to TCU with debility, here for rehabilitation, strengthening, prior to discharge to when bed available. Discharge to resident mother's home with significant other 03/03/2023, Lookback PT/OT/ST. Physical Exam Const alert General Appearance: cooperative HEENT normocephalic Eyes PERRL and EOMs intact bilaterally Neck supple, no JVD and no carotid bruits Resp normal respiratory effort, normal air movement and clear to auscultation bilaterally Cardio regular rate and regular rhythm GI normal to inspection, nondistended, normoactive bowel sounds, non-tender and non-distended Extremity normal capillary refill General Extremity: Negative for edema Skin no rashes or lesions noted General Skin Exam: no breakdown Neuro Neuro Narrative: Dense right upper extremity hemiplegia, moderate left lower extremity hemiparesis. Psych affect normal Appearance: appropriate Weight / BMI Weight Weight: 60.073 kg Body Mass Index (BMI) 20.1 ABG / Lab / Microbiology Data Result Diagrams: 02/21/23 05:30 02/19/23 05:20 Microbiology: Microbiology 02/19/23 06:48 Nasal Secretion SARS-CoV-2 Antigen (Rapid) - Final 02/15/23 06:05 Nasal Secretion SARS-CoV-2 Antigen (Rapid) - Final 02/13/23 05:30 Nasal Secretion SARS-CoV-2 Antigen (Rapid) - Final D/C Instructions Discharge Diet: No restrictions Discharge Activity: Return to Normal Activity, May Shower and Use Walker Weight Bearing Status: Weight bearing as tolerated Call your doctor if you observe: Fever of 101 or Higher, Inability to urinate, Inability to have a bowel movement, Shortness of breath, Dizziness, Fainting spells, Swelling in the ankles, Chest pain and Uncontrolled pain Additional Instructions: Dense right upper extremity hemiplegia, moderate left lower extremity hemiparesis. Please Follow Up With: Shashank Hahn MD When: 2 weeks. Meaningful Use Info Meaningful Use Diagnoses (Choose all that apply): Ischemic CVA CVA Therapy Assessed for PT,OT and/or ST?: Yes Ischemic Stroke Antithrombotic order at d/c?: Yes Dx of Atrial fib/flutter?: No Anticoagulant at discharge?: No Reason anticoagulant not ordered: Procedure not Indicated Statins at discharge?: Yes Primary Dx Acute Ischemic CVA?: Yes IV thrombolytic ordered during stay?: No Reason IV thrombolytic not ordered: Medical Contraindication Discharge Plan Admission Admit Date/Time: 02/11/23 15:17 Primary Reason for Your Visit: Debility. Attending Provider: Pk Bruce Chi Primary Care Provider: Arcenio Jones Instructions Additional Instructions / Restrictions: Discharge to resident mother's home with significant other 03/03/2023, Lookback PT/OT/ST. Discharge Orders/Prescriptions Prescriptions: New losartan 50 mg Tablet 50 mg PO DAILY 30 Days Qty: 30 0RF acetaminophen 500 mg Tablet 1,000 mg PO Q6H PRN PRN (Reason: Pain Score 1-10) Qty: 0 0RF nitroglycerin 0.4 mg Tablet, Sublingual 0.4 mg sublingual Q5M PRN (Reason: Cardiac/Chest Pain) 30 Days Qty: 30 0RF metoprolol tartrate 25 mg Tablet 25 mg PO BID 30 Days Qty: 60 0RF Continued aspirin 81 MG tablet,chewable 81 mg PO DAILY@0800 atorvastatin 80 mg tablet 80 mg PO QHS Discontinued nitroglycerin 0.4 mg tablet, sublingual 0.4 mg SUBLINGUAL Q5-15M PRN (Reason: Chest Pain) acetaminophen 325 mg Tablet 650 mg PO Q6H PRN PRN (Reason: Pain 1-10 Or Fever>100.7) Qty: 0 0RF sennosides-docusate sodium [Stool Softener-Stimulant Laxat] 8.6-50 mg Tablet 2 tab PO BID PRN PRN (Reason: Constipation) Qty: 0 0RF losartan 50 mg tablet 50 mg PO DAILY metoprolol tartrate 25 mg tablet 25 mg PO BID Referrals / Follow Up: Arcenio Jones MD [Primary Care Provider] - Disposition Disposition (needs filled in before D/C Order can be placed): Home, Self Care
[2023-02-22] MEDS: Senna/Docusate Sodium 1 Tablet PO (18:32)
[2023-02-22] MEDS: Atorvastatin Calcium 80 MG Tablet PO (20:38)
[2023-02-22 21:01] VITALS: PULSE 60; RESP 16; O2SAT 98
--- NOTE | 2023-02-22 21:08 | NURSING ---
Patient noted to have removed wet pull up and threw it on floor. Asked patient if she would like another one on and she refused. Informed fabric and textile factory worker. Will continue to monitor.
[2023-02-23 06:36] VITALS: BP 144/73; PULSE 61
[2023-02-23] MEDS: Metoprolol Tartrate 25 MG Tablet PO ×2 (06:36→17:23)
[2023-02-23] MEDS: Losartan Potassium 50 MG Tablet PO (06:36)
[2023-02-23] MEDS: Neuropathy Pain Cream Compound 60 CLICK TUBE TOPICAL ×2 (06:37→17:23)
[2023-02-23] MEDS: Aspirin 81 MG TAB.CHEW PO (07:47)
[2023-02-23] MEDS: Acetaminophen 500 MG Tablet 1000 MG PO (07:49)
[2023-02-23 15:09] VITALS: BP 114/58; PULSE 54; RESP 18; TEMP 36.8; O2SAT 96
[2023-02-23 17:23] VITALS: BP 120/65; PULSE 53
[2023-02-23] MEDS: Senna/Docusate Sodium 1 Tablet PO (17:23)
[2023-02-23] MEDS: Atorvastatin Calcium 80 MG Tablet PO (22:31)
[2023-02-23 22:37] VITALS: PULSE 50; RESP 16; O2SAT 97
[2023-02-24 06:26] VITALS: BP 120/57; PULSE 51
[2023-02-24] MEDS: Losartan Potassium 50 MG Tablet PO (06:27)
--- NOTE | 2023-02-24 06:29 | NURSING ---
Compound pain cream to be applied after bathing. Will report to oncoming nurse.
[2023-02-24] MEDS: Aspirin 81 MG TAB.CHEW PO (07:53)
[2023-02-24] MEDS: Neuropathy Pain Cream Compound 60 CLICK TUBE TOPICAL (07:54)
[2023-02-24 14:52] VITALS: BP 108/62; PULSE 58; RESP 16; TEMP 36.6; O2SAT 91
[2023-02-24 17:51] VITALS: PULSE 53
[2023-02-24] MEDS: Atorvastatin Calcium 80 MG Tablet PO (20:07)
[2023-02-24 20:25] VITALS: PULSE 54; RESP 16; O2SAT 97
[2023-02-25 04:58] VITALS: BP 122/61; PULSE 51
[2023-02-25] MEDS: Losartan Potassium 50 MG Tablet PO (05:00)
[2023-02-25] MEDS: Aspirin 81 MG TAB.CHEW PO (08:28)
--- NOTE | 2023-02-25 10:41 | NURSING ---
SW come to this nurse and reports SO has questions regarding F/U appts. This nurse discusses appts with SO and he feels appts unnecessary and that these doctors don't need to follow-up with patient and also that Dr. Jacobs reported to him that patient does not need to follow-up. This nurse had discussed these appts with SO last week and had left message with Doctor Jacobs's office regarding canceling appt with no return call. Explained importance of following up with doctors and that Dr. Cowan appt is to do GI scan. SO continued to say appts are unnecessary and requested numbers to cancel appts. Phone numbers for doctor's offices provided.
[2023-02-25 14:33] VITALS: BP 119/62; PULSE 60; RESP 18; TEMP 36.6; O2SAT 97
--- NOTE | 2023-02-25 15:14 | WOUNDNOTE ---
wound photo: right medial ankle
--- NOTE | 2023-02-25 15:15 | WOUNDNOTE ---
wound photo: right great toe
[2023-02-25 17:17] VITALS: BP 131/57; PULSE 60
[2023-02-25] MEDS: Neuropathy Pain Cream Compound 60 CLICK TUBE TOPICAL (17:17)
[2023-02-25] MEDS: Atorvastatin Calcium 80 MG Tablet PO (19:56)
[2023-02-26 04:59] VITALS: BP 129/66; PULSE 55
[2023-02-26] MEDS: Metoprolol Tartrate 25 MG Tablet PO (04:59)
[2023-02-26] MEDS: Losartan Potassium 50 MG Tablet PO (04:59)
[2023-02-26 05:29] LABS: Absolute Lymphocyte Count 1.25 X10^3/uL (0.83-4.51); Absolute Neutrophil Count 4.7 X10^3/uL (2.0-7.7); Basophil# 0.06 X10^3/uL; Basophil% 0.9 % (0-1); Eosinophil# 0.29 X10^3/uL; Eosinophils% 4.3 % (0-5); Hematocrit 30.1 % (37-47); Hemoglobin 9.7 g/dL (12.0-15.0); Lymphocyte # 1.25 X10^3/ul (0.83-4.51); Lymphocyte % 18.5 % (19-41); Mean Corp Hgb Conc 32.2 g/dL (32-36); Mean Corpuscular Hgb 28.3 pg (27.0-32.0); Mean Corpuscular Volume 87.8 fL (81-99); Mean Platelet Vol. 11.5 fl (6.2-12.0); Monocyte# 0.45 X10^3/uL; Monocyte% 6.7 % (0-10); NRBC Flagged by Analyzer 0 % (0-5); Neutrophil # 4.68 X10^3/uL (2.7-7.7); Neutrophil % 69.3 % (47-70); Platelet Count 235 K/mm3 (150-450); RBC Distribution Width CV 14.3 % (11.6-14.6); RBC Distribution Width SD 46.1 fl (35.1-43.9); Red Blood Count 3.43 M/mm3 (4.2-5.4); White Blood Count 6.8 K/mm3 (4.4-11.0)
[2023-02-26 05:48] LABS: Anion Gap 5 (5-15); BUN 19 mg/dL (7-18); BUN/Creat Ratio 26.9 RATIO (10-20); Calcium,Total 9.3 mg/dL (8.5-10.1); Chloride 110 mmol/L (98-107); Creatinine, Serum 0.71 mg/dL (0.55-1.02); EST Glomerular Filtration Rate 90 mL/min (>60); Est Glom Filt Rate - Afr Amer 109 mL/min (>60); Estimated Creatinine Clearance 82.91 ml/min; Glucose 156 mg/dL (74-106); Potassium 3.6 mmol/L (3.5-5.1); Sodium Level 142 mmol/L (136-145)
[2023-02-26] MEDS: Aspirin 81 MG TAB.CHEW PO (07:44)
[2023-02-26] MEDS: Ascorbic Acid 500 MG Tablet PO (08:26)
--- NOTE | 2023-02-26 09:24 | NURSING ---
S.O. changed dressing for wounds after shower. This nurse provided supplies and dated dressings. Explained to S.O. that all dressings must have date on them.
[2023-02-26 14:53] VITALS: BMI 20.2
[2023-02-26] MEDS: Neuropathy Pain Cream Compound 60 CLICK TUBE TOPICAL (17:13)
[2023-02-26 17:14] VITALS: BP 118/63; PULSE 51
[2023-02-26] MEDS: Metoprolol Tartrate 25 MG Tablet 12.5 MG PO (17:14)
[2023-02-26 17:15] VITALS: PULSE 51; RESP 18; O2SAT 98
[2023-02-26 20:05] VITALS: PULSE 68; RESP 16; O2SAT 99
[2023-02-26] MEDS: Acetaminophen 500 MG Tablet 1000 MG PO (20:11)
[2023-02-26] MEDS: Atorvastatin Calcium 80 MG Tablet PO (20:12)
[2023-02-27 05:50] VITALS: BP 123/63; PULSE 47
[2023-02-27] MEDS: Iron Polysaccharide Complex 150 MG CAPSULE PO (08:15)
[2023-02-27] MEDS: Ascorbic Acid 500 MG Tablet PO (08:15)
[2023-02-27] MEDS: Aspirin 81 MG TAB.CHEW PO (08:15)
--- NOTE | 2023-02-27 12:39 | CASEMGMT ---
Social Work S.O. presented to this worker's office and stated he would like to pursue guardianship. SO consulted with an event marketing manager and inquired about expert eval. SW to notify Dr. Bruce and have the evaluation completed, if agreeable. SO apprecative. Sasha Platt, TRANSPORTATION PLANNING ENGINEER SENIOR FINANCIAL
[2023-02-27 14:02] VITALS: BP 125/51; PULSE 63; RESP 16; TEMP 36.2; O2SAT 97
--- NOTE | 2023-02-27 14:04 | CASEMGMT ---
Social Work Therapy recommending [place] at [place]. Sent referral to [facility] via [facility]. Sasha Platt MSW PEDIATRIC DENTAL HYGIENIST
[2023-02-27 17:30] VITALS: BP 126/61; PULSE 50
[2023-02-27] MEDS: Neuropathy Pain Cream Compound 60 CLICK TUBE TOPICAL (17:31)
[2023-02-27] MEDS: Atorvastatin Calcium 80 MG Tablet PO (19:27)
[2023-02-28 05:00] VITALS: BP 144/65; PULSE 56
[2023-02-28] MEDS: Neuropathy Pain Cream Compound 60 CLICK TUBE TOPICAL (05:00)
[2023-02-28] MEDS: Iron Polysaccharide Complex 150 MG CAPSULE PO (05:00)
[2023-02-28] MEDS: Losartan Potassium 50 MG Tablet PO (05:00)
[2023-02-28] MEDS: Acetaminophen 500 MG Tablet 1000 MG PO ×2 (05:06→18:00)
[2023-02-28] MEDS: Aspirin 81 MG TAB.CHEW PO (07:42)
[2023-02-28] MEDS: Ascorbic Acid 500 MG Tablet PO (07:42)
--- NOTE | 2023-02-28 08:51 | NURSING ---
This nurse went into patients room to change dressings to medial right ankle and right great toe. S.O states that he will do the dressing changes because he brought in socks and shoes and will be helping her with those. States that he will date the dressings. Supplies provided.
[2023-02-28 13:41] VITALS: BP 131/67; PULSE 72; RESP 18; TEMP 36; O2SAT 97
[2023-02-28 18:04] VITALS: PULSE 55
[2023-02-28] MEDS: Atorvastatin Calcium 80 MG Tablet PO (21:55)
[2023-03-01 06:41] VITALS: BP 167/71; PULSE 55
[2023-03-01] MEDS: Losartan Potassium 50 MG Tablet PO (06:42)
[2023-03-01] MEDS: Iron Polysaccharide Complex 150 MG CAPSULE PO (06:42)
[2023-03-01] MEDS: Ascorbic Acid 500 MG Tablet PO (08:18)
[2023-03-01] MEDS: Aspirin 81 MG TAB.CHEW PO (08:19)
--- NOTE | 2023-03-01 09:25 | CASEMGMT ---
Social Work Mailed original expert eval paperwork to [facility] on this date. Copy placed on chart and provided to SO. Sasha Platt MSW OPERATIONS LEADER
--- NOTE | 2023-03-01 14:22 | CASEMGMT ---
Social Work SO presented to this worker's office requesting pt DC home 03/02. IDT agreeable. Yareli already delivered to pt's room. Dr. Bruce agreed and changed DC. Plan: DC home 03/02 SIRI ManeW
[2023-03-01 15:53] VITALS: BP 111/67; PULSE 71; RESP 16; TEMP 36.6; O2SAT 98
[2023-03-01 17:27] VITALS: PULSE 71
[2023-03-01] MEDS: Metoprolol Tartrate 25 MG Tablet 12.5 MG PO (17:27)
[2023-03-01] MEDS: Neuropathy Pain Cream Compound 60 CLICK TUBE TOPICAL (17:28)
[2023-03-01 19:46] VITALS: PULSE 69
[2023-03-01] MEDS: Atorvastatin Calcium 80 MG Tablet PO (20:41)
--- NOTE | 2023-03-02 01:05 | NURSING ---
Pt refused dressing change to R ankle wound x3 attempts from this nurse. Education provided but continues refusal. Last dressing change: 02/28/23.
[2023-03-02] MEDS: Losartan Potassium 50 MG Tablet PO (05:36)
[2023-03-02] MEDS: Iron Polysaccharide Complex 150 MG CAPSULE PO (05:36)
[2023-03-02 05:37] VITALS: BP 133/70; PULSE 54
[2023-03-02] MEDS: Aspirin 81 MG TAB.CHEW PO (08:05)
[2023-03-02] MEDS: Ascorbic Acid 500 MG Tablet PO (08:05)
[2023-03-02 11:06] VITALS: BP 138/62; PULSE 58; RESP 16; TEMP 36.6; O2SAT 100
== END 2023-03-02 08:30 | disposition home or self-care (01) | DRG 57 ==
PROVIDERS: Admitting Provider Family Medicine Geriatric Medicine; PCP Family Medicine; Visit Provider Family Medicine Geriatric Medicine
DX: I69.351 Hemiplegia and hemiparesis following cerebral infarction affecting right dominant side (principal); K92.2 Gastrointestinal hemorrhage, unspecified; I25.10 Atherosclerotic heart disease of native coronary artery without angina pectoris; I69.322 Dysarthria following cerebral infarction; F41.9 Anxiety disorder, unspecified; K21.9 Gastro-esophageal reflux disease without esophagitis; I10 Essential (primary) hypertension; E78.5 Hyperlipidemia, unspecified; F17.210 Nicotine dependence, cigarettes, uncomplicated; I69.320 Aphasia following cerebral infarction; I25.2 Old myocardial infarction; Z95.5 Presence of coronary angioplasty implant and graft; Z79.82 Long term (current) use of aspirin; Z79.899 Other long term (current) drug therapy
CPT/HCPCS: 36415; 80048; 85014; 85018; 85025; 87811; 92507; 92523; 97110; 97112; 97116; 97162; 97166; 97530; 97535; 97802; 99406

== ENCOUNTER → 2023-03-05 | Outpatient (CLI) | payer MEDICARE, SELFPAY ==
[2023-03-05 17:47] LABS: Absolute Lymphocyte Count 1.27 X10^3/uL (0.83-4.51); Absolute Neutrophil Count 4.3 X10^3/uL (2.0-7.7); Basophil# 0.03 X10^3/uL; Basophil% 0.5 % (0-1); Eosinophils% 3.2 % (0-5); Hemoglobin 10.4 g/dL (12.0-15.0); Lymphocyte # 1.27 X10^3/ul (0.83-4.51); Lymphocyte % 20.5 % (19-41); Mean Corp Hgb Conc 31.5 g/dL (32-36); Mean Corpuscular Hgb 27.4 pg (27.0-32.0); Mean Corpuscular Volume 87.1 fL (81-99); Mean Platelet Vol. 11.9 fl (6.2-12.0); Monocyte% 6.5 % (0-10); NRBC Flagged by Analyzer 0 % (0-5); Neutrophil # 4.27 X10^3/uL (2.7-7.7); Platelet Count 250 K/mm3 (150-450); RBC Distribution Width CV 14.6 % (11.6-14.6); RBC Distribution Width SD 46.4 fl (35.1-43.9); Red Blood Count 3.79 M/mm3 (4.2-5.4); White Blood Count 6.2 K/mm3 (4.4-11.0)
[2023-03-05 18:54] LABS: ALB/GLOB Ratio 0.9 RATIO (0.9-2.4); AST(SGOT) 19 U/L (15-37); Alanine Aminotransfer ALT/SGPT 28 U/L (13-56); Albumin, Serum 3.6 g/dL (3.2-5.0); Alkaline Phosphatase 132 U/L (45-117); Anion Gap 3 (5-15); BUN 20 mg/dL (7-18); BUN/Creat Ratio 23.1 RATIO (10-20); Calcium,Total 9.7 mg/dL (8.5-10.1); Chloride 112 mmol/L (98-107); Creatinine, Serum 0.87 mg/dL (0.55-1.02); EST Glomerular Filtration Rate 72 mL/min (>60); Est Glom Filt Rate - Afr Amer 87 mL/min (>60); Globulin 3.9 g/dL (2.2-4.2); Glucose 110 mg/dL (74-106); Potassium 3.1 mmol/L (3.5-5.1); Protein, Total 7.5 g/dL (6.4-8.2); Sodium Level 143 mmol/L (136-145); Thyroid Stim Hormone (TSH) 1.62 uIU/mL (0.358-3.74)
[2023-03-05 19:37] LABS: Hepatitis C Antibody Non-Reactive (Nonreactive); Vitamin D,25 Hydroxy 51.7 ng/mL
== END | disposition home or self-care (01) ==
LOC: POLAB3 16:58
PROVIDERS: Visit Provider Family Medicine Geriatric Medicine
DX: Z00.00 Encounter for general adult medical examination without abnormal findings (principal); R53.83 Other fatigue; Z13.89 Encounter for screening for other disorder
CPT/HCPCS: 36415; 80053; 82306; 84443; 85025; 86803

== ENCOUNTER → 2023-03-18 | Outpatient (CLI) | payer MEDICARE, SELFPAY ==
[2023-03-18 11:40] LABS: Anion Gap 4 (5-15); BUN 15 mg/dL (7-18); BUN/Creat Ratio 19.4 RATIO (10-20); Calcium,Total 9.6 mg/dL (8.5-10.1); Chloride 107 mmol/L (98-107); Creatinine, Serum 0.78 mg/dL (0.55-1.02); EST Glomerular Filtration Rate 81 mL/min (>60); Est Glom Filt Rate - Afr Amer 98 mL/min (>60); Glucose 170 mg/dL (74-106); Potassium 3.8 mmol/L (3.5-5.1); Sodium Level 139 mmol/L (136-145)
== END | disposition home or self-care (01) ==
LOC: LAB 09:50
PROVIDERS: PCP Family Medicine Geriatric Medicine; Referring Provider Family Medicine Geriatric Medicine; Visit Provider Family Medicine Geriatric Medicine
DX: E87.6 Hypokalemia (principal)
CPT/HCPCS: 36415; 80048

== ENCOUNTER → 2023-03-20 | Outpatient (CLI) | payer MEDICARE, SELFPAY ==
[2023-03-20 16:05] LABS: Hemoglobin A1c 5.9 % (3.8-5.6)
== END | disposition home or self-care (01) ==
LOC: LAB 14:15
PROVIDERS: PCP Family Medicine Geriatric Medicine; Referring Provider Family Medicine Geriatric Medicine; Visit Provider Family Medicine Geriatric Medicine
DX: E11.9 Type 2 diabetes mellitus without complications (principal)
CPT/HCPCS: 36415; 83036

== ENCOUNTER 2023-04-26 09:30 | Outpatient (RCR) | payer MEDICARE, SELFPAY ==
--- NOTE | 2023-03-04 14:48 | HP.PTEVAL_ITS ---
Patient's Visit Information ZARA FRANCISCO is a 57 year old F referred to Physical Therapy by Dr. Pk Bruce MD with a diagnosis of Stroke, expressive/receptive aphasia, R sided weakness. Date of Evaluation: 03/04/23 Physical Therapist: GORGE Gunter - Visit Plan Frequency: 3x /Week Duration: 4 Months Plan: Pt has expressive and receptive aphasia. 3X/ week for 16 weeks for gait training, R LE strengthening including R DF strength, balance, functional a ctivity training with HEP. Pt would benefit from a R AFO - Subjective They live in [place]. She had a period where she could not see out of her L eye. She had an 88% bockage in carotid artery and they wanted to do surgery. They flew home and did all kinds of tests waiting to have surgery. Pt had her first/second stroke Jan 16 and lost her speech. When she was at home her thinks she had her 3rd stroke and lost 9 units of blood. During about February 06 she was in PCU and she had another stroke and lost her R side and a lot of her comprehension. She was in PCU and TCU and she could not walk when she got there. She is walking with a lamin-walker for a few weeks. They are staying with her mother right now with 4 steps with a railing. She manages to get in and out of bed. She gets up and goes to the bathroom in the middle of the night. No trouble in and out of the car. Sit to stand: she uses her arm to help her get up. She has no AFO on her R leg. She does drag her R foot occ. She just got out of the hospital on Sat. gives most of the subjective. He reports that she does not have much trouble with balance. She wants to walk and talk without the lamin walker. - Objective Pt is R handed. Gait: Walks with a lamin walker in the L hand with increase scuffing of the R foot with gait. L foot does not pass R leg. Decrease stride length B legs. When walked with therapist CGA and NO AD pt had a hard time clearing R foot. R sided neglect. Sit to stand: uses L arm to help stand to lamin walker using mostly L leg. Pt is able to get from standing to supine Carin. She does tend to leave her R UE behind often. LE MMT: R hip flex 7.3 and L hip flex 12.4. R knee ext 15.2 and L knee ext 21.9. R knee flex 8.7 and L knee flex 8. R DF 7.7 and L DF 20.3. R hip abd in S/L 5.6 and L 8.8. Tinetti: 12. Pt is not able to raise her toes in standing on the R side. - Balance/Special Test Scores Tinetti Balance Score: 9 Tinetti Gait Score: 3 Tinetti Balance & Gait Score: 12 Lower Extremity Functional Score: 7 - Goals Goal 1:: I HEP Goal Time Frame: 12-16 Weeks Goal 2:: Increase LE strength (at time of the eval: LE MMT: R hip flex 7.3 and L hip flex 12.4. R knee ext 15.2 and L knee ext 21.9. R knee flex 8.7 and L knee flex 8. R DF 7.7 and L DF 20.3. R hip abd in S/L 5.6 and L 8.8) Goal Time Frame: 8-12 Weeks Goal 3:: Be able to walk with least restrictive device 300 feet with SBA and not scuffing her R foot or catching her R toe with gait with increase stride length B Goal Time Frame: 8-12 Weeks Goal 4:: Be able to sit to stand without using UE support X 10 Goal Time Frame: 8-12 Weeks - Rehabilitation Potential Rehabilitation Potential: Good - Anticipated Interventions Patient/Client Instruction: Educate patient on: Condition, Plan of Care For the Purpose of:: To improve nutrient delivery to tissue, To improve muscle performance and motor function, To improve ability to perform ADL's, To increase tolerance to activity/condition/position, To improve performance and independence with ADL's, To decrease level of supervision to perform tasks, To i mprove ability of physical actions for home/community/work/leisure, To improve gait and locomotor functions, To improve health of tissue, To decrease soft tissue restriction, To increase flexibility/ROM, To improve endurance, To improve balance, To improve safety with gait Therapeutic Exercise to Include: Strength training, Endurance training, Balance training, Coordination, Postural training, Flexibilty training, Gait and locomotor training, Neuromotor development, Passive ROM, Active ROM, Dynamic Lumbar Stabilization For the Purpose of:: To improve nutrient delivery to tissue, To improve muscle performance and motor function, To improve ability to perform ADL's, To increase tolerance to activity/condition/position, To improve performance and independence with ADL's, To decrease level of supervision to perform tasks, To improve ability of physical actions for home/community/work/leisure, To improve gait and locomotor functions, To improve health of tissue, To decrease soft tissue restriction, To increase flexibility/ROM, To improve endurance, To improve balance, To improve safety with gait Functional Training to Include: Gait training For the Purpose of:: To improve gait and locomotor functions, To improve safety with gait Manual Therapy Techniques to Include: Passive ROM For the Purpose of:: To increase ROM, To increase flexibility/ROM Thank you for the opportunity to evaluate your patient. For Medicare and Medicare HMO plans, please review the plan of care and approve it. It will need to be FAXED BACK to us at [phone] for Medicare purposes. For Medicare only, by signing this I certify the plan of care. Please let me know if there are questions or concerns regarding this plan of care. Physician Signature: Date:
--- NOTE | 2023-03-04 18:43 | HP.SP.EVAL ---
Visit History - Visit Info Date of Eval: 03/04/23 Visit: 1 Image Scientist: ELLIOT - History Attending Doctor: Referring Doctor: Reason for Referral: STROKE/ APHASIA/R SIDE WEAKNESS. RX HERE Medical Diagnosis: CVA Date of Onset of Diagnosis: 01-16-23 Previous speech therapy: Yes Results: Therapy was while in IP and on TCU from 02-10-23 to 03-02-23. Other Relevant Medical History/Diagnoses/Surgery: Patient lives in [place] with her significant other. In Dec 2022 she had a stroke, was told she has critical carotid artery stenosis, started on Xarelto for unknown reason. Patient came back to [facility] because she wanted to have carotid artery endarterectomy in the [facility]. Her only deficit after stroke was expressive aphasia. Fell at home. She had another stoke in the hospital in January 2023. Atherosclerotic heart disease of [place] coronary artery without angina pectoris. Essential hypertension. History of left heart catheterization. History of MA (myocardial infarction). Hyperlipidemia Smoking Status: Current every day smoker - Diagnosis Diagnosis: Severe global aphasia - Pain Is pain an issue with your current prescribed condition?: No - Personal Preferred language: Kyrgyz History - History Date of Eval: 03/04/23 Medical Diagnosis (from RX): CVA Date of Onset of Diagnosis: 01-16-23 Previous speech therapy: Yes Results: Therapy was while in IP and on TCU from 02-10-23 to 03-02-23. Other Relevant Medical History/Diagnoses/Surgery: Patient lives in [place] with her significant other. In Dec 2022 she had a stroke, was told she has critical carotid artery stenosis, started on Xarelto for unknown reason. Patient came back to [facility] because she wanted to have carotid artery endarterectomy in the [place]. Her only deficit after stroke was expressive aphasia. Fell at home. She had another stoke in the hospital in January 2023. Atherosclerotic heart disease of [place] coronary artery without angina pectoris. Essential hypertension. History of left heart catheterization. History of MA (myocardial infarction). Hyperlipidemia Smoking Status: Current every day smoker Hx Tobacco Use: Yes - Pain Is pain an issue with your current prescribed condition?: No Patient Allergies - Allergies Allergies celecoxib [From Celebrex] Allergy (Severe, Verified 01/28/23 10:24) Other isosorbide mononitrate [From Imdur] Allergy (Severe, Verified 01/28/23 10:24) Other meloxicam [From Mobic] Allergy (Severe, Verified 01/28/23 10:24) Nausea/Vom/Diarrhea Objective Cog/Ling/Com - Test Administered Ncffdpoqm-Bialqsmoja-Zgtqacuvqjvel Assessment Administered: Yes Vblkwbyua-Xrjxsjtdqf-Lpeipevumdyqe Assessment: Cognitive ? Linguistic skills were evaluated using patient/family interview, skilled observation and informal evaluation through tasks completed by the patient. - Identification Body parts/objects: Severe Colors: WFL Letters: Moderate Numbers: Mild - Answer Yes/No Questions Simple: Severe - Follows Commands 1 Step: Severe - Comments Comments: Patient was unable to verbally give any personal information when asked. Her Significant other provided her name, and history. - Automatic Sequences Automatic Sequences: Severe - Repetition Words: Severe - Naming Responsive naming: Severe - Conversational Tasks Conversational Tasks: Severe Comments: Patient is unable to participate in conversation. She was able to verbalize yes/no during the evaluation but they do not appear to be accurate. - Comments Comments: Patient has almost no functional verbal communication. - Reading Picture-Word Matching Picture-Word matching: Severe - Reading Comprehension Words: Severe - Oral Reading Words: Severe - Writing Comments: Patient shook her head no when asked to write her name. Cognitive Linguistic Comments - Comments Vision The patient may have right neglect. She often chose pictures on the left of the page. Her significant other reported that she may have one contact in and unsure if she has the other. She may need glasses but when spoke to regarding seeing a neuro histologic aide she repeatedly shook her head no. Plan - Plan Plan: Patient presents with severe global aphasia following her CVA. She lacks a communication system and demonstrates severe difficulty in understanding spoken language. - Recommendations Treatment Warranted: Yes Treatment Warranted: Receptive/ Expressive Language - Progress Prognosis: Good - Frequency Frequency: 3x /Week Duration: 3 Months Visits in this POC: 36 - Patient/Family Goal Patient/Family Goal: Significant other would like her to walk and talk. - Goals that are Established Determination:: Goals will be added/modified as deemed necessary and appropriate. Therapy will be discontinued when results of re-evaluation indicate therapy is no longer needed or lack of progress has been documented. - Goal #1-5 Goal #1: Patient will identify objects/pictures in a field of 3-6 with moderate cues on 4/5 trials on 2/3 consecutive sessions. Goal #2: Patient will follow 1-3 step directions with maximum of 3-4 components on on 4/5 trials on 2/3 consecutive sessions. Goal #3: Patient will answer basic yes/no questions either verbally or by pointing to words on 4/5 trials on 2/3 consecutive sessions. Goal #4: Patient will complete automatic speech tasks on 4/5 trials on 2/3 consecutive sessions. Goal #5: Patient will complete phrase/sentences with 1-2 words on 4/5 trials on 2/3 consecutive sessions. Education - Patient has Indicated that the Following Identified Educational Needs: Cognitively Impaired, Hearing/Vision/Speech Impaired Other Educational Needs: one step directions - Patient Instruction Patient Education: Diagnosis, Treatment Plan, Goals Person Taught: Patient, Significant Other Teaching Method: Discussion Response to teaching: Verbalize understanding
--- NOTE | 2023-03-05 16:40 | HP.OTEVAL ---
Patient's Visit Information ZARA FRANCISCO is a 57 year old F, referred to Occupational Therapy by No Primary Care Phys, with a diagnosis of CVA, expressive/receptive aphasia. Date of Evaluation: 03/04/23 Occupational Therapist: Betsy Leach, OTR/L, CHT - Subjective This 57 year old female was seen for OT eval with dx of CVA. pt significate other states 1st symptom of stroke was 2022. pt weakness and difficulty with speech was a result of her CVA. May have hand one prior to this late Oct, pt vision was unable to see from left eye. pt returned to [place] Early January for Skilled treatments: 01/28/23 seen by Vascular for Office Visit and to get POC. 01/31/23 pt had stress test completed. Pt suffered Fall at Home on 02/06/23: per ER documentation : Patient does have right upper extremity weakness noted on exam. She states this is from her recent stroke. Due to low hemoglobin levels pt was admitted to [facility]. Pt underwent colonoscopy to determine blood loss. 02/09/23 per pts [facility] doc. Patient had new-onset right-sided hemiparesis. [facility] had repeat CT scan 02/09/23 revealed left carotid artery now completely occluded as the cause of these symptoms. Anticoagulant and antiplatelet have been held secondary to her recent significant bleeding in which her hgb dropped from 12.7 to 5.0 in the span of 2 weeks requiring transfusion of 3 units PRBC and still with unknown source. 02/11/23 Pt than transferred to for rehab stayed until March 02 pt was D/C from rehab and arrives today 03/04/23 for OT/PT and speech evaluations. expressive/receptive aphasia right side weakness. significant other verbalized details of timeline as well as review into pts [facility] records to get timeline. - ADLs Dressing: Button shirt, Pants, Socks, Shoes Fasteners: Tie shoes, Buttons, Zippers Eating: Bring food to mouth, Use silverware, Cut food Comments: using left hand/UE Bathing: Handle washcloth & soap Kitchen: Peel fruits & vegetables, Open jars Comments: unable Household: Vacuum, Sweep/mop, Laundry Comments: pts sig, other assist with dressing. pt tub shower with shower bench seat. ambulating with lamin walker. pt is right handed- pt currently eating with left hand/UE - ROM Shoulder: right 70* starts to compensate left WNL Elbow: right WFL (slow movement) left WNL Forearm: right WFL (slow movement) left WNL Wrist: right WFL/left WNL ROM Comments: pt demo weak grasp of right hand- left WNL. PROM is WNL - Strength Shoulder: right 3/5 left 5/5 Elbow: right 4-/5 left 5/5 Senior Counsel: right 10# left 45# Lateral Pinch: right unable left 14# Tripod Pinch: right unable left 12# Strength Comments: pt demo with right frit mixer and burner/pinch weakness. pt demo with right UE weakness - Sensation Sensation Comments: pt reports of tingling of entire right UE - Visual/Perceptual Skills Visual Field Cut: Yes Left Neglect: - right neglect ( runs into door ways on the right) Comments: pt demo with slight depth perception. pt closes left eye when looking at pictures/letters. sig. other is not sure is she is wearing both contact lenses. therapist verbalized pt would benefit from nanda ophthalmologists (pt shook head no) - Cognitive Skills Follows Directions: - at times Oriented to (Check all that apply): Person - In-Hand Manipulation Finger to Palm Translation: Unable - Right, Normal - Left Palm to Finger Translation: Unable - Right, Normal - Left Shift: Unable - Right, Normal - Left - Quick DASH-Disab of Arm,Shoulder& Hand Quick DASH Score: 77.2725 - Goals Goal:: pt will demo a increase in right frit mixer and burner strength to 50# or greater to increase pts ind. with ADLs and IADLs by d/c. pt will demo ability to carry/lift 15# with good ability to increase simulated IADL tasks by d/c. pt will demo full right UE ROM and ability to lift 3# to simulate putting groceries away in cabinet by d.c Goal:: pt will demo a increase right UE ROM to WFL consistently without body compensation by d/c Goal:: pt will demo the ability to write name legibly by d/c Goal:: pt will demo the ability perform bilateral hand task as zippers/button at ind level by d.c - Rehabilitation General Assessment: pt demo with right side weakness, visual deficit and inconsistency with verbalization of symptoms or needs- unsure with receptive aphasia pt is understanding questions. Sign. other voiced all past medical hx and review of med. recd. pt demo need for skilled OT services 2-3x for 12 weeks to increase functional strength of right UE, grasp release, writing to increase pts performance of ADLs and IADLs. Pt and pts sig. other demo understanding and agree to POC. - Anticipated Interventions A/AAROM/PROM, Strengthening, Fine Motor Coord/Migue, Neuro Reeducation, Sensory Stimulation, Visual/Perceptual Skills, ADL Training - Visit Plan Frequency: 3x /Week Duration: 3 Months General Plan: initiate wt. bearing. reciprocal motion. AAROM (controlled). FES as needed. scapula strengthening. Visual perceptual skills. bilateral hand skills. writing. typing TEXT: Thank you for the opportunity to evaluate your patient. For Medicare and Medicare HMO plans, please review the plan of care and approve it. It will need to be FAXED BACK to us at [phone] for Medicare purposes. Please let me know if there are questions or concerns regarding this plan of care. Physician Signature: Date:
--- NOTE | 2023-03-25 13:06 | HP.SPREEV_ITS ---
Visit History - Visit Info Date of Eval: 03/04/23 Visit: 1 Assembler Bicycle: ELLIOT - History Attending Doctor: YOLIS Referring Doctor: Reason for Referral: STROKE/ APHASIA/R SIDE WEAKNESS. RX HERE Medical Diagnosis: CVA Date of Onset of Diagnosis: 01-16-23 Previous speech therapy: Yes Results: Therapy was while in IP and on TCU from 02-10-23 to 03-02-23. Other Relevant Medical History/Diagnoses/Surgery: Patient lives in [place] with her significant other. In Dec 2022 she had a stroke, was told she has critical carotid artery stenosis, started on Xarelto for unknown reason. Patient came back to [facility] because she wanted to have carotid artery endarterectomy in the [facility]. Her only deficit after stroke was expressive aphasia. Fell at home. She had another stoke in the hospital in January 2023. Atherosclerotic heart disease of ramona coronary artery without angina pectoris. Essential hypertension. History of left heart catheterization. History of AR (myocardial infarction). Hyperlipidemia Smoking Status: Current every day smoker - Diagnosis Diagnosis: Severe receptive and expressive aphasia. - Pain Is pain an issue with your current prescribed condition?: No - Personal Preferred language: Lithuanian History - History Date of Eval: 03/04/23 Medical Diagnosis (from RX): CVA Date of Onset of Diagnosis: 01-16-23 Previous speech therapy: Yes Results: Therapy was while in IP and on TCU from 02-10-23 to 03-02-23. Other Relevant Medical History/Diagnoses/Surgery: Patient lives in [place] with her significant other. In Dec 2022 she had a stroke, was told she has critical carotid artery stenosis, started on Xarelto for unknown reason. Patient came back to [facility] because she wanted to have carotid artery endarterectomy in the [place]. Her only deficit after stroke was expressive aphasia. Fell at home. She had another stoke in the hospital in January 2023. Atherosclerotic heart disease of ramona coronary artery without angina pectoris. Essential hypertension. History of left heart catheterization. History of AR (myocardial infarction). Hyperlipidemia Smoking Status: Current every day smoker Hx Tobacco Use: Yes - Pain Is pain an issue with your current prescribed condition?: No Patient Allergies - Allergies Allergies celecoxib [From Celebrex] Allergy (Severe, Verified 01/28/23 10:24) Other isosorbide mononitrate [From Imdur] Allergy (Severe, Verified 01/28/23 10:24) Other meloxicam [From Mobic] Allergy (Severe, Verified 01/28/23 10:24) Nausea/Vom/Diarrhea Previous/Current Goals - Goals 1-5 Previous Goal #1: Patient will identify objects/pictures in a field of 3-6 with moderate cues on 4/5 trials on 2/3 consecutive sessions. Goal 1 Status: GOAL MET: Initially: In a field of 6 objects 45%. Currently: in a field of 6 placed in a 2x3 rows to facilitate patient's visual impairment. 92% Previous Goal #2: Patient will follow 1-3 step directions with maximum of 3-4 components on on 4/5 trials on 2/3 consecutive sessions. Goal 2 Status: GOAL CONTINUES: Initially: 1 step directions with 2 components ( action and object - touch your nose or stomp foot) 50%. Currently: 1 step directions: 46% Previous Goal #3: Patient will answer basic yes/no questions either verbally or by pointing to words on 4/5 trials on 2/3 consecutive sessions. Goal 3 Status: GOAL CONTINUES: Initially: Yes/no questions with min cues were 75% with increased time needed for reply. Currently: Moderate yes/no: 66% Complex: 78% yes no comparison of two objects 57% Previous Goal #4: Patient will complete automatic speech tasks on 4/5 trials on 2/3 consecutive sessions. Goal 4 Status: GOAL CONTINUES Initially: Alphabet - poor with rhythm used. 1-10 08/04 and 09/03, days of the week 03/01, 05/01, 03/31 with phonemic cues. Months of the year with written starter letter and occasional phonemic cue - 07/06, 07/06 second time. Currently: GERMÁN 05/31 with only starter cue for Saturday. Months 06/05, 07/06, 06/05 increased to 09/05 with phonemic cues. ABS with moderate cues. Second trial with moderate cues. Previous Goal #5: Patient will complete phrase/sentences with 1-2 words on 4/5 trials on 2/3 consecutive sessions. Goal 5 Status: GOAL MET. Initially: Moderate phrases/sentence: 80% with moderate phonemic cues. Currently: Complex open ended 100% Objective Cog/Ling/Com - Test Administered Kqmuwhmso-Bssatsioec-Kqzcuumbnbaun Assessment Administered: Yes Plxkwhxrk-Caqimkjhrf-Wuilzadodbbyo Assessment: Cognitive ? Linguistic skills were evaluated using patient/family interview, skilled observation and informal evaluation through tasks completed by the patient. - Orientation Orientation: Person, Day, Birthdate, Medical Diagnosis - Identification Body parts/objects: WFL - Answer Yes/No Questions Simple: WFL Complex: Mild - Follows Commands 1 Step: Severe - Comments Comments: Patient was unable to verbally give any personal information when asked. Her Significant other provided her name, and history. - Automatic Sequences Automatic Sequences: Moderate - Repetition Words: Severe - Naming Responsive naming: Severe Naming in categories: Severe Reads Landing: Severe Abstract: Severe - Conversational Tasks Conversational Tasks: Severe Comments: Patient is now saying a few phrases ( I don't know, I don't care) along with occasional word ( ie tacos) - Comments Comments: Patient has almost no functional verbal communication. - Reading Picture-Word Matching Picture-Word matching: Severe - Reading Comprehension Words: Severe - Oral Reading Words: Severe - Writing Comments: Patient shook her head no when asked to write her name. Cognitive Linguistic Comments - Comments Vision The patient may have right neglect. She often chose pictures on the left of the page. Her significant other reported that she may have one contact in and unsure if she has the other. She may need glasses but when spoke to regarding seeing a neuro coppersmith apprentice she repeatedly shook her head no. Plan - Plan Plan: Norma continues to present with severe deficits in receptive/expressive language skills. Progress is noted on multiple goals and therapy is recommended to continue. - Recommendations Treatment Warranted: Yes Treatment Warranted: Receptive/ Expressive Language - Progress Prognosis: Good - Frequency Frequency: 3x /Week Duration: 2 Months Visits in this POC: 24 - Patient/Family Goal Patient/Family Goal: Significant other would like her to walk and talk. - Goals that are Established Determination:: Goals will be added/modified as deemed necessary and appropriate. Therapy will be discontinued when results of re-evaluation indicate therapy is no longer needed or lack of progress has been documented. - Goal #1-5 Goal #1: Patient will follow 1-3 step directions with maximum of 3-4 components on on 4/5 trials on 2/3 consecutive sessions. Goal #2: Patient will complete automatic speech tasks on 4/5 trials on 2/3 consecutive sessions. Goal #3: Patient will complex/comparative yes/no questions either verbally or by pointing to words on 4/5 trials on 2/3 consecutive sessions. Goal #4: Patient will complete confrontational naming tasks on 4/5 trials on 2/3 consecutive sessions. Goal #5: . Education - Patient has Indicated that the Following Identified Educational Needs: Cognitively Impaired, Hearing/Vision/Speech Impaired Other Educational Needs: one step directions - Patient Instruction Patient Education: Diagnosis, Treatment Plan, Goals Person Taught: Patient, Significant Other Teaching Method: Discussion Response to teaching: Verbalize understanding
--- NOTE | 2023-03-27 11:57 | HP.OTREVAL ---
No Primary Care Phys, It has been my pleasure to treat ZARA FRANCISCO over the last 10 visits for CVA, expressive/receptive aphasia. Please see the progress note below for an update on the occupational therapy plan of care! Subjective: pt arrives with sig. other- he speaks for her indicating she is showering RADHA and getting dressed with little help- he reports cont. concerns with vision and right neglect- therapist ed.pt and sig. other she will need verbal cues until she has more awareness of right side of body-. he did voice concerns on why Kts arm is not progressing as well as her walking- therapist ed, to try to continue with HEP and wt.bearing to increase proprioception of right UE. sig. verbalized understanding. Objective/Function: pt demo with increase in right reflector driller and deburrer strength to 45# increase from 10#,. pt demo shoulder flex at 110*. fit2 testing peak force. right shoulder 3# left 15#. right shoulder ext 11# left 16#. right biceps 10# left 25#. right triceps 14# left 21#. pt demo grasp release of med. size large and x large objects. pt demo with thumb adduction /abduction. vision continues to limit pts ability. noted right neglect. pt making gains and would cont. to benefit from skilled OT services 2-3x week for 3 months. Plan Frequency: 3x /Week Duration: 3 Months Visits in this POC: (OT-Limit $2230) 36 visits Plan: Continue POC. 3 months (2-3x week) Goals - Goals Patient Goals: Regain Mobility, Regain Strength, Improve Fine Motor Skills, Use Hand/Wrist/Arm Normally Again Goal:: pt will demo a increase in right reflector driller and deburrer strength to 50# or greater to increase pts ind. with ADLs and IADLs by d/c. pt will demo ability to carry/lift 15# with good ability to increase simulated IADL tasks by d/c. pt will demo full right UE ROM and ability to lift 3# to simulate putting groceries away in cabinet by d.c Goal:: pt will demo a increase right UE ROM to WFL consistently without body compensation by d/c Goal:: pt will demo the ability to write name legibly by d/c Goal:: pt will demo the ability perform bilateral hand task as zippers/button at ind level by drake Anticipated Interventions Anticipated Interventions: A/AAROM/PROM, Strengthening, Fine Motor Coord/Migue, Neuro Reeducation, Sensory Stimulation, Visual/Perceptual Skills, ADL Training Please do not hesitate to contact me at [phone] by phone or if you have questions or concerns regarding this new plan of care! Sincerely, Betsy Leach, OTR/L, CHT
--- NOTE | 2023-04-01 12:00 | HP.PTREVAL_ITS ---
No Primary Care Phys, It has been my pleasure to treat ZARA FRANCISCO over the last 13 visits for Stroke, expressive/receptive aphasia, R sided weakness. Please see the progress note below for an update on the physical therapy plan of care! Subjective: Pt has no pain today. She is not using the cane right now. Between boyfriend interpreting we come to find out that the Ashli does not think PT is necessary. Boyfriend has seen the most improvements in PT but does not see Ashli doing much of anything at home and will not go out to the grocery store and walk even with a cart etc. She is not cleaning, cooking etc at home Objective/Function: Asked pt to take bigger steps today and she said no. LE MMT: R hip flex 9 and L hip flex 12.4. R knee ext 15.2 and L knee ext 21.9. R knee flex 8.7 and L knee flex 8. R DF 13.4 and L DF 20.3. R hip abd in S/L 8.7 and L 8.8). Sit to stand X 15 with no arms. FGA: Pt struggles with depth perception and proprioception with stairs and kicking her R leg out to clear the step she is stepping off of. Pt likes to hold onto the // bars with most activities but struggles with simple SLB or high march activities due to her balance. Pt is able to walk BW but fatigues with HS on the R side and can not advance her foot BW after a few steps. Pt has to slow her gait with horizontal or vertical head turn and then tends to catch her R foot. Pt is able to walk 2 laps around entire inside of /[place] in just over 4 min with occ R foot catching and fatigue present at the end. Plan Plan: HS strength and hip flexion strength on the R with functional activities. Gait (including BW walking including endurance) Side step up and over and FW step up and over activities, endurance walking activities, stairs, balance activities without using her L UE with HEP. Endurance Walking. Pt has expressive and receptive aphasia. 3X/ week for 16 weeks for gait training, R LE strengthening including R DF strength, balance, functional activity training with HEP. Pt would benefit from a R AFO Balance/Gait/Functional tests - Balance/Special Test Scores Functional Gait Assessment Score: 10 % Disability: 66.6700 Tinetti Balance Score: 9 Tinetti Gait Score: 3 Tinetti Balance & Gait Score: 12 Lower Extremity Functional Score: 7 Goals Goal 1:: I HEP Goal Time Frame: 12-16 Weeks Goal 2:: Increase LE strength (at time of the eval: LE MMT: R hip flex 7.3 and L hip flex 12.4. R knee ext 15.2 and L knee ext 21.9. R knee flex 8.7 and L knee flex 8. R DF 7.7 and L DF 20.3. R hip abd in S/L 5.6 and L 8.8) Goal Time Frame: 8-12 Weeks Goal Progress: Progressing Goal 3:: Be able to walk with least restrictive device 300 feet with SBA and not scuffing her R foot or catching her R toe with gait with increase stride length B Goal Time Frame: 8-12 Weeks Goal 4:: Be able to sit to stand without using UE support X 10 Goal Time Frame: 8-12 Weeks Goal Progress: Goal Met Anticipated Interventions Patient/Client Instruction: Educate patient on: Condition, Plan of Care For the Purpose of:: To improve nutrient delivery to tissue, To improve muscle performance and motor function, To improve ability to perform ADL's, To increase tolerance to activity/condition/position, To improve performance and independence with ADL's, To decrease level of supervision to perform tasks, To improve ability of physical actions for home/community/work/leisure, To improve gait and locomotor functions, To improve health of tissue, To decrease soft tissue restriction, To increase flexibility/ROM, To improve endurance, To improve balance, To improve safety with gait Therapeutic Exercise to Include: Strength training, Endurance training, Balance training, Coordination, Postural training, Flexibilty training, Gait and locomotor training, Neuromotor development, Passive ROM, Active ROM, Dynamic Lumbar Stabilization For the Purpose of:: To improve nutrient delivery to tissue, To improve muscle performance and motor function, To improve ability to perform ADL's, To increase tolerance to activity/condition/position, To improve performance and independence with ADL's, To decrease level of supervision to perform tasks, To improve ability of physical actions for home/community/work/leisure, To improve gait and locomotor functions, To improve health of tissue, To decrease soft tiss ue restriction, To increase flexibility/ROM, To improve endurance, To improve balance, To improve safety with gait Functional Training to Include: Gait training For the Purpose of:: To improve gait and locomotor functions, To improve safety with gait Manual Therapy Techniques to Include: Passive ROM For the Purpose of:: To increase ROM, To increase flexibility/ROM Please do not hesitate to contact me at [phone] by phone or if you have questions or concerns regarding this new plan of care! Sincerely, Gayatri Mendoza, MPT
--- NOTE | 2023-05-24 11:53 | HP.OTDCSUM_ITS ---
Discharge Summary D/C Summary: It has been my pleasure to treat ZARA FRANCISCO under orders from Dr. Pk Bruce MD, for the diagnosis of CVA, expressive/receptive aphasia for a total of 20 visit(s). Please see the following information for a summary of their discharge status. Overall Improvement % Improvement: 50 Objective Objective/Function: Recycling Director: right 30# left 55# Lateral Pinch: right 12#, left 20# Tripod Pinch: 10# w/ mod assist for placement of fingers, left 1#8 Goals Patient Goals: Regain Mobility, Regain Strength, Improve Fine Motor Skills and Use Hand/Wrist/Arm Normally Again Goal:: pt will demo a increase in right drying machine back tender strength to 50# or greater to increase pts ind. with ADLs and IADLs by d/c pt will demo ability to carry/lift 15# with good ability to increase simulated IADL tasks by d/c pt will demo full right UE ROM and ability to lift 3# to simulate putting groceries away in cabinet by d.c Goal:: pt will demo a increase right UE ROM to WFL consistently without body compensation by d/c Goal:: pt will demo the ability to write name legibly by d/c Goal:: pt will demo the ability perform bilateral hand task as zippers/button at ind level by d.c Plan Plan: Pt is moving back to [place] next week- started today would be last therapy session. D/C Information Discharge Comments: pt moving back to [place] - d/c at this time. d/c sentence: If there are questions or concerns regarding this patient's occupational therapy, please fell free to call me at [phone]. Thank you for the referral of this patient. Sincerely, Betsy Leach, OTR/L, CHT
--- NOTE | 2023-06-05 15:56 | HP.SP.DC ---
ST Discharge Summary Discharged: Discharge: Norma Waldron is discharged from speech therapy as of 04/26/23 from [facility]. At her request as she was going home to [place]. She was treated for aphasia three times per week. She had a total of 20 visits with her initial evaluation on 03/04/23. She had severe deficits in expressive language and significant deficits in receptive language. Her significant other waited outside the therapy room. She met her identification goal and was progressing with goals for automatic speech sequences, following directions and answering yes/no questions. She was demonstrating progress but her significant other stated she was not speaking at home. They were educated on goals of therapy and progression of therapy goals and that conversation was not expected yet. He reported that she did not complete tasks at home. Alternative methods of communication were presented such as writing but patient did attempt to use them at home. Please see daily notes for complete details. Thank you for allowing me to participate in the care of this patient.
== END 2023-04-26 19:00 | disposition home or self-care (01) ==
LOC: SP 09:30
PROVIDERS: Referring Provider Family Medicine Geriatric Medicine; Visit Provider Family Medicine Geriatric Medicine
DX: I69.351 Hemiplegia and hemiparesis following cerebral infarction affecting right dominant side (principal); I69.320 Aphasia following cerebral infarction
CPT/HCPCS: 92507; 92523; 97110; 97112; 97161; 97166; 97530